=== PATIENT | female | born 1995 | race Caucasian/White ===

== ENCOUNTER → 2021-08-02 | Outpatient (CLI) ==
[~2021-08-02] MED LIST: AC325T PO; ACET-1697 PO; ACET-2267 PO; ACHD5005 PO; ALPR.25T PO; AMOX-358 PO; AMX500CIP PO; AZTH250C PO; CEPH-507 PO; CEPH250C PO; CEPH500C; CEPH500C PO; CYCL10TA25 PO; CYCL5TAB PO; DIPH25CA79 PO; DIPH25TA27 PO; DIPH25TA82 PO; DOCU-239 PO; DOCU100C37 PO; DOXY100T2 PO; ENOX100D4 SC; FLUC200T PO; HYDR-4226 PO; HYDR1TAB PO; IBUP-15 PO; IBUP-1773 PO; IBUP-1780 PO; IBUP-844 PO; KETO10TA PO; MEDR10TA9; METR-145 PO; METR500T PO; NAPR-1071 PO; NAPR550T PO; NEOM10DR6 EACH EAR; NITR-65 PO; ONDA4TAB8 SL; OXYC-556 PO; OXYC1TAB12 PO; PNV91TAB3 PO; PREN1TAB79 PO; PROM25TA14 PO; SERT-413; UNISOM25 M1 PO; VITIAMS; pnv
== END ==
LOC: LABNPT 15:54
PROVIDERS: ATTEND Nurse Practitioner Women's Health
DX: Z53.9 Procedure and treatment not carried out, unspecified reason (principal)

== ENCOUNTER → 2021-08-02 | Outpatient (CLI) | LOC: LABNPT 16:17 → MERGE 16:17 | PROVIDERS: ATTEND Nurse Practitioner Women's Health | DX: N89.8 Other specified noninflammatory disorders of vagina (principal) | CPT/HCPCS: 87070; 87077; 87088; 87205; 87491; 87591 ==

== ENCOUNTER → 2022-06-14 | Outpatient (CLI) | payer MEDICAID ==
[2022-06-14 15:15] LABS: BASOPHILS % (AUTO) 1 % (0-10); EOSINOPHILS # (AUTO) 0.1 10^3/uL (0.0-0.3); EOSINOPHILS % (AUTO) 1 % (0-10); HEMATOCRIT 40 % (35-52); HEMOGLOBIN 13.4 g/dL (11.5-16.0); LYMPHOCYTES # (AUTO) 2.2 X 10^3 (1.0-4.0); LYMPHOCYTES % (AUTO) 34 % (12-44); MEAN CORPUSCULAR HEMOGLOBIN 32 pg (25-34); MEAN CORPUSCULAR HGB CONC 34 g/dL (32-36); MEAN CORPUSCULAR VOLUME 94 fL (80-99); MEAN PLATELET VOLUME 11.1 fL (9.0-12.2); MONOCYTES # (AUTO) 0.4 X 10^3 (0.0-1.0); MONOCYTES % (AUTO) 6 % (0-12); NEUTROPHILS # (AUTO) 3.9 X 10^3 (1.8-7.8); NEUTROPHILS % (AUTO) 59 % (42-75); PLATELET COUNT 254 10^3/uL (130-400); WHITE BLOOD COUNT 6.6 10^3/uL (4.3-11.0)
[2022-06-14 20:49] LABS: HEPATITIS C ANTIBODY C Non-Reactive (Non-Reactive)
== END ==
LOC: LAB 14:29
PROVIDERS: ATTEND Nurse Practitioner Women's Health
DX: Z36.89 Encounter for other specified antenatal screening (principal)
CPT/HCPCS: 36415; 80055; 84702; 86803; 87389

== ENCOUNTER 2022-06-23 21:55 | Emergency (ER) | payer MEDICAID ==
[~2022-06-23] VITALS: Ht 163 cm; Wt 62.0 kg
[2022-06-23] MEDS ORDERED: METOCLOPRAMIDE INJ 10 MG/2 ML (REGLAN) IVP STA (22:16)
--- NOTE | 2022-06-23 22:17 | ED General ---
General Stated Complaint: N/V, WEAKNESS Source of Information: Patient History of Present Illness Date Seen by Provider: Jun 23, 2022 Time Seen by Provider: 22:10 Initial Comments PT ARRIVES VIA POV FROM HOME PT STATES SHE IS 7 WEEKS , LMP 05/05/22 PT HAS BEEN HAVING NAUSEA AND VOMITING X 2 WEEKS. SHE VOMITED 2 DAYS AGO. NO DIARRHEA NO ABDOMINAL PAIN OR CRAMPING NO VAGINAL BLEEDING OR DISCHARGE NO URINARY SYMPTOMS, AND VOIDING A NORMAL AMOUNT PT STATES SHE IS EATING AND DRINKING, AND KEEPS IT DOWN, IS JUST VERY NAUSEATED. C/O FEELING WEAK AND DIZZY SHE HAD LAB DONE AT DR. VALDZE'S LAST WEEK SHE HAS HER FIRST OB APPOINTMENT WITH DR. VALDEZ 07/15/22 SHE HAS BEEN TAKING TUMS WITHOUT RELIEF SHE IS TAKING VITAMINS. PT IS AB 3. LAST DELIVERY WAS 03/29/21 VIA REPEAT . PT IS NOT COVID OR FLU VACCINATED PCP: [facility] PETROL TANKER DRIVER: DR. VALDEZ Allergies and Home Medications Allergies Coded Allergies: ceftriaxone (Verified Allergy, Mild, RASH, 08/03/21) tramadol (Unverified Allergy, Unknown, 08/03/21) Uncoded Allergies: IV contrast (Allergy, Unknown, 08/03/21) Patient Home Medication List Home Medication List Reviewed: Yes Diphenhydramine HCl (Benadryl) 25 Mg Capsule, 50 MG PO HS, (Reported) Entered as Reported by: SALLY FRIEDMAN on 02/18/21 1248 Docusate Sodium (Docusate Sodium) 100 Mg Capsule, 100 MG PO BID PRN for CONSTIPATION-1ST LINE Prescribed by: ROBERT VALDEZ on 03/29/212106 Doxylamine/Pyridoxine HCl (Guerita Camarena 10-10 mg Tablet) 10 Mg-10 Mg Tablet., 2 EACH PO HS Prescribed by: JAKE JEAN on 06/23/22 2331 Hydrocodone Bit/Acetaminophen (HYDROcodone/APAP 5 MG/325 MG TAB) 1 Tab Tab, 1-2 EA PO Q6HR PRN for PAIN-MODERATE (5-7) Prescribed by: ROBERT VALDEZ on 03/29/212108 Ibuprofen (Ibu) 600 Mg Tablet, 600 MG PO Q6HR Prescribed by: ROBERT VALDEZ on 03/29/212106 Metoclopramide HCl (Reglan) 10 Mg Tablet, 10 MG PO Q6H Prescribed by: JAKE JEAN on 06/23/22 2331 Vit W-Ca,Fe,FA(<1 mg) ( Vitamins) 1 Each Tablet, 1 EACH PO DAILY, (Reported) Entered as Reported by: MILES SPANGLER on 11/18/20 2339 Review of Systems Review of Systems Constitutional: see HPI, dizziness, malaise, weakness EENTM: no symptoms reported Respiratory: no symptoms reported Cardiovascular: no symptoms reported Gastrointestinal: see HPI; No abdominal pain, No constipation, No diarrhea; nausea, vomiting Genitourinary: no symptoms reported : Yes LMP: May 05, 2022 Musculoskeletal: no symptoms reported Skin: no symptoms reported Psychiatric/Neurological: No Symptoms Reported Hematologic/Lymphatic: No Symptoms Reported Immunological/Allergic: no symptoms reported Past Emklnek-Biqhko-Afpnnb Hx Patient Social History Tobacco Use?: No Substance use?: No Alcohol Use?: No Immunizations Up To Date Tetanus Booster (TDap): Unknown PED Vaccines UTD: Yes Seasonal Allergies Seasonal Allergies: Yes Past Medical History Surgery/Hospitalization HX: WISDOM TEETH REMOVED X 3 D&C X 2 BIRTHMARK/SKIN LESION REMOVED FROM RIGHT LOWER LEG Surgeries: Yes (surgery on RIGHT LOWERleg for lesion removal; DENTAL; D&C X2; X 3) Section Respiratory: No Cardiac: Yes (hx DVT after first ) Deep Vein Thrombosis, Heart Murmur Neurological: No : Yes Last Menstrual Period: May 05, 2022 Hx : 8 Hx Para: 4 Hx Total # of Abortions (Sp): 3 Reproductive Disorders: Yes Female Reproductive Disorders: Menstrual Problems, Ovarian Cyst HIV/AIDS: No Genitourinary: Yes (PELVIC CONGESTION SYNDROME) Gastrointestinal: No Musculoskeletal: No Endocrine: No HEENT: No Cancer: No Psychosocial: Yes (OVERDOSED 2018. SUICIDAL IDEATIONS. ) Anxiety, Suicide Attempts, Depression Integumentary: No Blood Disorders: Yes (DVT, anemia after last delivery) Adverse Reaction/Blood Tranf: No Family Medical History Patient reports no known family medical history. No Pertinent Family Hx Physical Exam Vital Signs Vital Signs - First Documented 06/23/22 22:09 Temp 36.6 Pulse 94 Resp 16 B/P (MAP) 127/70 (89) Pulse Ox 100 O2 Delivery Room Air Capillary Refill : Height, Weight, BMI Height: 5'4.00" Weight: 145lbs. 0.0oz. 65.062231fq; 27.76 BMI Method:Stated General Appearance: No Apparent Distress, WD/WN, Thin, Other HEENT: Normal ENT Inspection, Other (ORAL MUCOSA MOIST) Neck: Normal Inspection Respiratory: Normal Breath Sounds, No Accessory Muscle Use, No Respiratory Distress Cardiovascular: Regular Rate, Rhythm, No Murmur Gastrointestinal: Normal Bowel Sounds, No Organomegaly, Non Tender, Soft Back: Normal Inspection, No CVA Tenderness Extremity: Normal Capillary Refill, Normal Inspection, No Pedal Edema Neurologic/Psychiatric: Alert, Oriented x3, No Motor/Sensory Deficits, Normal Mood/Affect, charge loader II-XII Norm as Tested Skin: Normal Color, Warm/Dry; No Rash Progress/Results/Core Measures Suspected Sepsis SIRS Temperature: Pulse: Respiratory Rate: Laboratory Tests 06/23/22 22:05: White Blood Count 8.8 Blood Pressure / Mean: Laboratory Tests 06/23/22 22:05: Platelet Count 220 06/23/22 22:15: Creatinine 0.67, Total Bilirubin 0.3 Results/Orders Lab Results Laboratory Tests Test 06/23/22 22:05 06/23/22 22:15 Range/Units White Blood Count 8.8 4.3-11.0 10^3/uL Red Blood Count 3.70 L 3.80-5.11 10^6/uL Hemoglobin 11.8 11.5-16.0 g/dL Hematocrit 34 L 35-52 % Mean Corpuscular Volume 93 80-99 fL Mean Corpuscular Hemoglobin 32 25-34 pg Mean Corpuscular Hemoglobin Concent 34 32-36 g/dL Red Cell Distribution Width 12.8 10.0-14.5 % Platelet Count 220 130-400 10^3/uL Mean Platelet Volume 10.9 9.0-12.2 fL Immature Granulocyte % (Auto) 0 % Neutrophils (%) (Auto) 59 42-75 % Lymphocytes (%) (Auto) 33 12-44 % Monocytes (%) (Auto) 6 0-12 % Eosinophils (%) (Auto) 2 0-10 % Basophils (%) (Auto) 1 0-10 % Neutrophils # (Auto) 5.2 1.8-7.8 10^3/uL Lymphocytes # (Auto) 2.9 1.0-4.0 10^3/uL Monocytes # (Auto) 0.6 0.0-1.0 10^3/uL Eosinophils # (Auto) 0.1 0.0-0.3 10^3/uL Basophils # (Auto) 0.1 0.0-0.1 10^3/uL Immature Granulocyte # (Auto) 0.0 0.0-0.1 10^3/uL Urine Color YELLOW Urine Clarity CLEAR Urine pH 6.0 5-9 Urine Specific [place] 1.020 1.016-1.022 Urine Protein NEGATIVE NEGATIVE Urine Glucose (UA) NEGATIVE NEGATIVE Urine Ketones NEGATIVE NEGATIVE Urine Nitrite NEGATIVE NEGATIVE Urine Bilirubin NEGATIVE NEGATIVE Urine Urobilinogen 0.2 < = 1.0 MG/DL Urine Leukocyte Esterase NEGATIVE NEGATIVE Urine RBC (Auto) NEGATIVE NEGATIVE Urine RBC NONE /HPF Urine WBC NONE /HPF Urine Squamous Epithelial Cells 0-2 /HPF Urine Crystals NONE /LPF Urine Bacteria NEGATIVE /HPF Urine Casts NONE /LPF Urine Mucus NEGATIVE /LPF Urine Culture Indicated NO Urine Opiates Screen NEGATIVE NEGATIVE Urine Oxycodone Screen NEGATIVE NEGATIVE Urine Methadone Screen NEGATIVE NEGATIVE Urine Propoxyphene Screen NEGATIVE NEGATIVE Urine Barbiturates Screen NEGATIVE NEGATIVE Ur Tricyclic Antidepressants Screen NEGATIVE NEGATIVE Urine Phencyclidine Screen NEGATIVE NEGATIVE Urine Amphetamines Screen NEGATIVE NEGATIVE Urine Methamphetamines Screen NEGATIVE NEGATIVE Urine Benzodiazepines Screen NEGATIVE NEGATIVE Urine Cocaine Screen NEGATIVE NEGATIVE Urine Cannabinoids Screen NEGATIVE NEGATIVE Sodium Level 140 135-145 MMOL/L Potassium Level 3.4 L 3.6-5.0 MMOL/L Chloride Level 108 H 98-107 MMOL/L Carbon Dioxide Level 21 21-32 MMOL/L Anion Gap 11 5-14 MMOL/L Blood Urea Nitrogen 8 7-18 MG/DL Creatinine 0.67 0.60-1.30 MG/DL Estimat Glomerular Filtration Rate 124 BUN/Creatinine Ratio 12 Glucose Level 91 70-105 MG/DL Calcium Level 8.9 8.5-10.1 MG/DL Corrected Calcium 9.0 8.5-10.1 MG/DL Magnesium Level 1.8 1.6-2.4 MG/DL Total Bilirubin 0.3 0.1-1.0 MG/DL Aspartate Amino Transf (AST/SGOT) 14 5-34 U/L Alanine Aminotransferase (ALT/SGPT) 14 0-55 U/L Alkaline Phosphatase 36 L 40-136 U/L Total Protein 6.1 L 6.4-8.2 GM/DL Albumin 3.9 3.2-4.5 GM/DL Amylase Level 51 25-125 U/L Lipase 27 8-78 U/L Human Chorionic Gonadotropin, Quant [id number] H <5 MIU/ML My Orders Orders - JAKE JEAN DO Ed Iv/Invasive Line Start (06/23/22 22:16) Amylase (06/23/22 22:16) Cbc With Automated Diff (06/23/22 22:16) Comprehensive Metabolic Panel (06/23/22 22:16) Drug Screen Stat (Urine) (06/23/22 22:16) Hcg,Quantitative (06/23/22 22:16) Lipase (06/23/22 22:16) Magnesium (06/23/22 22:16) Ua Culture If Indicated (06/23/22 22:16) Ed Iv/Invasive Line Start (06/23/22 22:16) Lactated Ringers (Lr 1000 Ml Iv Solution (06/23/22 22:30) Metoclopramide Injection (Reglan Injecti (06/23/22 22:16) Medications Given in ED Current Medications Medications Dose Ordered Sig/Dionna Route Start Time Stop Time Status Last Admin Dose Admin Lactated Ringer's 1,000 ml @ 0 mls/hr Q0M ONCE IV 06/23/22 22:30 06/23/22 22:31 DC 06/23/22 22:26 0 MLS/HR Vital Signs/I&O 06/23/22 06/23/22 22:09 23:33 Temp 36.6 36.5 Pulse 94 81 Resp 16 16 B/P (MAP) 127/70 (89) 122/61 Pulse Ox 100 99 O2 Delivery Room Air Room Air Capillary Refill : Progress Note : Progress Note GIVEN: -IV FLUIDS -REGLAN SIGNIFICANT IMPROVEMENT IN SYMPTOMS WITH THE ABOVE. PT HAS NOT HAD ANY VOMITING DURING ER STAY VITALS ARE STABLE NO DETERIORATION IN PT'S CONDITION DURING ER STAY DISCUSSED TEST RESULTS, ANTICIPATED COURSE, SYMPTOMATIC TREATMENT, DIET, MEDICATIONS, NEED FOR FOLLOW UP AND RETURN PRECAUTIONS REVIEWED PRIOR RECORDS, INCLUDING ER VISITS, ADMITS/H&P'S/DISCHARGE SUMMARIES AND TESTS/PROCEDURES PT'S BLOOD TYPE IS A+ Departure Impression Primary Impression: Nausea and vomiting during prior to 22 weeks gestation Disposition: 01 HOME, SELF-CARE Condition: Stable Departure-Patient Inst. Decision time for Depature: 23:30 Referrals: ROBERT VALDEZ DO Patient Instructions: Morning Sickness ED Add. Discharge Instructions: CLEAR LIQUIDS, SIPS AT A TIME--WATER, BROTH, JELLO, GATORADE BRATS DIET--BANANAS, RICE, APPLESAUCE, TOAST, SALTINES FOLLOW UP WITH DR. VALDEZ SCHEDULED OR SOONER IF NO IMPROVEMENT IN SYMPTOMS Scripts Metoclopramide HCl (Reglan) 10 Mg Tablet 10 MG PO Q6H for Nausea/Vomiting, #10 TAB Prov: JAKE JEAN DO 06/23/22 Doxylamine/Pyridoxine HCl (Guerita Camarena 10-10 mg Tablet) 10 Mg-10 Mg Tablet.dr 2 EACH PO HS, #60 TAB Prov: JKAE JEAN DO 06/23/22 JAKE JEAN DO Jun 23, 2022 22:17
[2022-06-23 22:28] LABS: BASOPHILS # (AUTO) 0.1 10^3/uL (0.0-0.1); BASOPHILS % (AUTO) 1 % (0-10); EOSINOPHILS # (AUTO) 0.1 10^3/uL (0.0-0.3); EOSINOPHILS % (AUTO) 2 % (0-10); HEMATOCRIT 34 % (35-52); HEMOGLOBIN 11.8 g/dL (11.5-16.0); LYMPHOCYTES # (AUTO) 2.9 10^3/uL (1.0-4.0); LYMPHOCYTES % (AUTO) 33 % (12-44); MEAN CORPUSCULAR HEMOGLOBIN 32 pg (25-34); MEAN CORPUSCULAR HGB CONC 34 g/dL (32-36); MEAN CORPUSCULAR VOLUME 93 fL (80-99); MEAN PLATELET VOLUME 10.9 fL (9.0-12.2); MONOCYTES # (AUTO) 0.6 10^3/uL (0.0-1.0); MONOCYTES % (AUTO) 6 % (0-12); NEUTROPHILS # (AUTO) 5.2 10^3/uL (1.8-7.8); NEUTROPHILS % (AUTO) 59 % (42-75); PLATELET COUNT 220 10^3/uL (130-400); WHITE BLOOD COUNT 8.8 10^3/uL (4.3-11.0)
[2022-06-23 22:29] LABS: BILIRUBIN,URINE NEGATIVE (NEGATIVE); CLARITY,URINE CLEAR; COLOR,URINE YELLOW; GLUCOSE, URINE (UA) NEGATIVE (NEGATIVE); KETONES,URINE NEGATIVE (NEGATIVE); LEUKOCYTE ESTERASE ,URINE NEGATIVE (NEGATIVE); NITRITE,URINE NEGATIVE (NEGATIVE); PROTEIN,URINE NEGATIVE (NEGATIVE)
[2022-06-23] MEDS ORDERED: LACTATED RINGERS 1,000 ML IV ONE (22:30)
[2022-06-23 22:35] LABS: BACTERIA,URINE NEGATIVE /HPF; SQUAMOUS EPITHELIAL CELL,UR 0-2 /HPF
[2022-06-23 22:43] LABS: AMPHETAMINE SCREEN, URINE NEGATIVE (NEGATIVE); BARBITURATE SCREEN URINE NEGATIVE (NEGATIVE); BENZODIAZEPINES SCREEN URINE NEGATIVE (NEGATIVE); CANNABINOID SCREEN, URINE NEGATIVE (NEGATIVE); COCAINE SCREEN URINE NEGATIVE (NEGATIVE); METHADONE STAT NEGATIVE (NEGATIVE); OPIATE SCREEN URINE NEGATIVE (NEGATIVE); OXYCODONE STAT NEGATIVE (NEGATIVE); PROPOXYPHENE STAT NEGATIVE (NEGATIVE); TRICYCLIC ANTIDEPRESSANTS SCRE NEGATIVE (NEGATIVE)
[2022-06-23 22:52] LABS: ALBUMIN 3.9 GM/DL (3.2-4.5); BILIRUBIN,TOTAL 0.3 MG/DL (0.1-1.0); CALCIUM 8.9 MG/DL (8.5-10.1); CREATININE SERUM 0.67 MG/DL (0.60-1.30); MAGNESIUM 1.8 MG/DL (1.6-2.4); POTASSIUM 3.4 MMOL/L (3.6-5.0); TOTAL PROTEIN 6.1 GM/DL (6.4-8.2)
[2022-06-23] MEDS ORDERED: DOXY1TAB3 PO (23:31)
[2022-06-23] MEDS ORDERED: METO-310 PO (23:31)
[2022-06-23 23:33] VITALS: BP 122/61
== END 2022-06-23 23:37 | disposition home or self-care (01) ==
LOC: EDUNIT# 21:55 → ER 21:57
DX: O21.9 Vomiting of pregnancy, unspecified (principal); O26.891 Other specified pregnancy related conditions, first trimester; R42 Dizziness and giddiness; R53.1 Weakness; Z28.310 Unvaccinated for COVID-19; Z3A.01 Less than 8 weeks gestation of pregnancy
CPT/HCPCS: 36415; 80053; 80306; 81000; 82150; 83690; 83735; 84702; 85025

== ENCOUNTER → 2022-09-16 | Outpatient (CLI) | payer MEDICAID ==
[~2022-09-16] MED LIST changes: +DOXY1TAB3 PO; +METO-310 PO
--- NOTE | 2022-09-16 15:40 | Diagnostic Imaging Report ---
INDICATION: patient, survey. TECHNIQUE: Multiple Real-time grayscale images were obtained over the gravid uterus. COMPARISON: None during this . FINDINGS: A single live intrauterine fetus is seen measuring 19 weeks 1 day by composite measurements. The fetus is in cephalic presentation. The amniotic fluid index is 11.2 cm. The placenta is posterior and marginal with the tip near the internal cervical os. The cervical length is 8.4 cm with some slight funneling in the superior portion. The survey shows normal-appearing kidneys and bladder. A normal-appearing stomach is seen. The intracranial ventricles appear normal. The four-chamber heart view appears normal. The three-vessel cord and cord insertion appear normal. Views of the spine were unremarkable. Biometrical measurements are as follows: Biparietal 4.17 cm, age 18 weeks 5 days. Head circumference 16.20 cm, age 19 weeks 0 days. Abdominal circumference 14.08 cm, age 19 weeks 4 days. Femur length 2.86 cm, age 18 weeks 6 days. Sonographic estimate age: 19 weeks 1 days. Sonographic estimated date of delivery: 02/09/2023. Estimated Weight: 274 gm (+/- 40 gm). LMP percentile: 16%. heart rate: 138 beats per minute. number: 1 of 1. IMPRESSION: Single live intrauterine fetus measuring 19 weeks 1 day in size. The placenta is marginal, recommend followup studies to determine if this resolves in later . anatomical survey shows no detectable abnormality. Dictated by: Dictated on workstation # [id number]
== END ==
LOC: RAD 09:16
PROVIDERS: ATTEND Nurse Practitioner Women's Health
DX: Z34.92 Encounter for supervision of normal pregnancy, unspecified, second trimester (principal); Z3A.19 19 weeks gestation of pregnancy
CPT/HCPCS: 76805

== ENCOUNTER 2022-10-02 18:47 | Outpatient (CLI) | payer MEDICAID ==
[~2022-10-02] VITALS: Ht 162.6 cm; Wt 67.8 kg
[2022-10-02 19:15] VITALS: BP 119/58
[2022-10-02 19:28] LABS: BILIRUBIN,URINE NEGATIVE (NEGATIVE); CLARITY,URINE SL CLOUDY; COLOR,URINE YELLOW; GLUCOSE, URINE (UA) NEGATIVE (NEGATIVE); KETONES,URINE NEGATIVE (NEGATIVE); LEUKOCYTE ESTERASE ,URINE NEGATIVE (NEGATIVE); NITRITE,URINE NEGATIVE (NEGATIVE); PH,URINE 6.5 (5-9); PROTEIN,URINE NEGATIVE (NEGATIVE)
[2022-10-02 19:38] LABS: BACTERIA,URINE NEGATIVE /HPF
[2022-10-02 19:39] LABS: AMORPHOUS SEDIMENT,UR LARGE AMOR URATES /LPF; GRANULAR CASTS,URINE RARE /LPF
[2022-10-02] MEDS ORDERED: DOCO200C4 PO (20:13)
[2022-10-02] MEDS ORDERED: ONDANSETRON 4 MG (ZOFRAN) ORAL DISSOLVE TAB ONE (20:22)
[2022-10-02] MEDS ORDERED: ONDANSETRON 4 MG (ZOFRAN) ORAL DISSOLVE TAB PO ONE (20:30)
--- NOTE | 2022-10-03 08:08 | Physician Query-Final Dx ---
SHAMAR,10/03/22 0808: Clinic Account Progress/Dx Physician Query: Please give diagnosis Please include # weeks gestation Date of Service Oct 02, 2022 at 18:47 ROBERT VALDEZ DO 10/03/22 1012: Clinic Account Progress/Dx DIAGNOSIS: Diagnosis 22 week IUP Nausea and dehydration SHAMAR,MarOct 03, 2022 08:08 ROBERT VALDEZ DO Oct 03, 2022 10:12
== END 2022-10-02 20:00 ==
LOC: WSo 18:47 → LDRP 18:47 → WSo 20:00
PROVIDERS: ATTEND Obstetrics & Gynecology
DX: O26.892 Other specified pregnancy related conditions, second trimester (principal); E86.0 Dehydration; R11.0 Nausea; Z3A.22 22 weeks gestation of pregnancy
CPT/HCPCS: 81000; 99213

== ENCOUNTER 2022-10-14 22:24 | Outpatient (CLI) | payer MEDICAID ==
[~2022-10-14] VITALS: Ht 162.6 cm; Wt 69.9 kg
[~2022-10-14 22:24] MED LIST changes: +DOCO200C4 PO
[2022-10-14 22:50] VITALS: BP 130/60
[2022-10-14 23:04] LABS: BILIRUBIN,URINE NEGATIVE (NEGATIVE); CLARITY,URINE CLEAR; COLOR,URINE YELLOW; GLUCOSE, URINE (UA) NEGATIVE (NEGATIVE); KETONES,URINE NEGATIVE (NEGATIVE); LEUKOCYTE ESTERASE ,URINE NEGATIVE (NEGATIVE); NITRITE,URINE NEGATIVE (NEGATIVE); PROTEIN,URINE NEGATIVE (NEGATIVE)
[2022-10-14 23:12] LABS: BACTERIA,URINE NEGATIVE /HPF; SQUAMOUS EPITHELIAL CELL,UR RARE /HPF
[2022-10-14 23:42] LABS: BASOPHILS % (AUTO) 0 % (0-10); EOSINOPHILS # (AUTO) 0.1 10^3/uL (0.0-0.3); EOSINOPHILS % (AUTO) 1 % (0-10); HEMATOCRIT 33 % (35-52); HEMOGLOBIN 11.2 g/dL (11.5-16.0); LYMPHOCYTES # (AUTO) 2.1 10^3/uL (1.0-4.0); LYMPHOCYTES % (AUTO) 25 % (12-44); MEAN CORPUSCULAR HEMOGLOBIN 34 pg (25-34); MEAN CORPUSCULAR HGB CONC 34 g/dL (32-36); MEAN CORPUSCULAR VOLUME 100 fL (80-99); MEAN PLATELET VOLUME 10.8 fL (9.0-12.2); MONOCYTES # (AUTO) 0.5 10^3/uL (0.0-1.0); MONOCYTES % (AUTO) 6 % (0-12); NEUTROPHILS # (AUTO) 5.7 10^3/uL (1.8-7.8); NEUTROPHILS % (AUTO) 67 % (42-75); PLATELET COUNT 188 10^3/uL (130-400); WHITE BLOOD COUNT 8.4 10^3/uL (4.3-11.0)
[2022-10-14] MEDS ORDERED: ACETAMINOPHEN 500 MG TAB (TYLENOL) PO ONE (23:45)
[2022-10-14 23:54] LABS: ALBUMIN 3.2 GM/DL (3.2-4.5); POTASSIUM 3.6 MMOL/L (3.6-5.0)
[2022-10-14 23:55] LABS: CALCIUM 8.2 MG/DL (8.5-10.1)
[2022-10-14 23:56] LABS: TOTAL PROTEIN 5.6 GM/DL (6.4-8.2)
[2022-10-14 23:58] LABS: BILIRUBIN,TOTAL 0.2 MG/DL (0.1-1.0)
[2022-10-15 00:01] LABS: CREATININE SERUM 0.6 MG/DL (0.60-1.30)
[2022-10-15 00:02] LABS: BILIRUBIN,DIRECT 0.1 MG/DL (0.0-0.3); BILIRUBIN,INDIRECT 0.1 MG/DL
[2022-10-15 00:59] VITALS: BP 119/59
[2022-10-15 01:00] VITALS: BP 119/59
--- NOTE | 2022-10-15 08:22 | Physician Query-Final Dx ---
SHAMAR,10/15/22 0822: Clinic Account Progress/Dx Physician Query: Please give diagnosis Please include # weeks gestation Date of Service Oct 14, 2022 at 22:24 ROBERT VALDEZ DO 10/15/22 1628: Clinic Account Progress/Dx DIAGNOSIS: Diagnosis 22 week IUP Acute gastroenteritis SHAMAR,MarOct 15, 2022 08:22 ROBERT VALDEZ DO Oct 15, 2022 16:28
== END 2022-10-15 01:00 | disposition home or self-care (01) ==
LOC: LDRP 22:24 → WSo 22:24
PROVIDERS: ATTEND Obstetrics & Gynecology
DX: O99.612 Diseases of the digestive system complicating pregnancy, second trimester (principal); Z3A.22 22 weeks gestation of pregnancy
CPT/HCPCS: 36415; 80053; 81000; 82150; 82247; 82248; 83690; 85025; 99213

== ENCOUNTER 2023-01-07 10:48 | Outpatient (CLI) | payer MEDICAID ==
[2023-01-07] MEDS ORDERED: LORA5TAB9 PO (11:22)
[2023-01-07 11:25] VITALS: BP 116/60
[2023-01-07 11:51] LABS: BILIRUBIN,URINE NEGATIVE (NEGATIVE); CLARITY,URINE CLEAR; COLOR,URINE YELLOW; GLUCOSE, URINE (UA) NEGATIVE (NEGATIVE); KETONES,URINE 1+ (NEGATIVE); LEUKOCYTE ESTERASE ,URINE NEGATIVE (NEGATIVE); NITRITE,URINE NEGATIVE (NEGATIVE); PH,URINE 6.5 (5-9); PROTEIN,URINE NEGATIVE (NEGATIVE)
[2023-01-07 11:52] LABS: BACTERIA,URINE FEW /HPF
--- NOTE | 2023-01-07 12:06 | OB Triage Report ---
Standard Progress Note Progress Notes/Assess & Plan Date Seen by a Provider: Jan 07, 2023 Time Seen by a Provider: 12:00 Expected Date of Delivery: Feb 05, 2023 Gestational Age in Weeks: 35 Gestational Age in Days: 6 LMP/SPENSER Comment: This 35w6d 27yo presents to L&D with c/o cramping and diarrhea that started yesteday She denies LOF, VB N/V or CTXS FHT 140 Reactive TOCOs irritability Progress/Assessment & Plan IUP @ 35w6d False labor Dehydration Diarrhea DC to home PO fluids Labor precautions Keep appt. CAT QUIROGA DO Jan 07, 2023 12:06
== END 2023-01-07 12:15 | disposition home or self-care (01) ==
LOC: LDRP 10:48 → WSo 10:48
PROVIDERS: ATTEND Obstetrics & Gynecology
DX: O26.893 Other specified pregnancy related conditions, third trimester (principal); R25.2 Cramp and spasm; R19.7 Diarrhea, unspecified; Z3A.35 35 weeks gestation of pregnancy
CPT/HCPCS: 81000; G0463; 99213

== ENCOUNTER 2023-01-08 08:07 | Outpatient (CLI) | payer MEDICAID ==
[~2023-01-08] VITALS: Ht 162.6 cm; Wt 74.8 kg
[~2023-01-08 08:07] MED LIST changes: +LORA5TAB9 PO
[2023-01-08 08:47] LABS: CLARITY,URINE CLEAR; COLOR,URINE YELLOW; GLUCOSE, URINE (UA) NEGATIVE (NEGATIVE); PROTEIN,URINE NEGATIVE (NEGATIVE)
[2023-01-08 08:48] LABS: BACTERIA,URINE TRACE /HPF; BILIRUBIN,URINE NEGATIVE (NEGATIVE); KETONES,URINE 1+ (NEGATIVE); LEUKOCYTE ESTERASE ,URINE NEGATIVE (NEGATIVE); NITRITE,URINE NEGATIVE (NEGATIVE); RBC,URINE RARE /HPF; WBC,URINE RARE /HPF
[2023-01-08 09:00] VITALS: BP 132/70
[2023-01-08] MEDS ORDERED: LACTATED RINGERS 1,000 ML 1,000 ML IV SCH (09:00)
[2023-01-08] MEDS ORDERED: ACETAMINOPHEN 500 MG TABLET PO ONE (09:30)
[2023-01-08 09:56] LABS: BASOPHILS % (AUTO) 0 % (0-10); EOSINOPHILS % (AUTO) 0 % (0-10); HEMATOCRIT 35 % (35-52); HEMOGLOBIN 11.9 g/dL (11.5-16.0); LYMPHOCYTES # (AUTO) 0.9 10^3/uL (1.0-4.0); LYMPHOCYTES % (AUTO) 9 % (12-44); MEAN CORPUSCULAR HEMOGLOBIN 33 pg (25-34); MEAN CORPUSCULAR HGB CONC 34 g/dL (32-36); MEAN CORPUSCULAR VOLUME 98 fL (80-99); MEAN PLATELET VOLUME 11.5 fL (9.0-12.2); MONOCYTES # (AUTO) 0.6 10^3/uL (0.0-1.0); MONOCYTES % (AUTO) 6 % (0-12); NEUTROPHILS # (AUTO) 8.2 10^3/uL (1.8-7.8); NEUTROPHILS % (AUTO) 84 % (42-75); PLATELET COUNT 154 10^3/uL (130-400); WHITE BLOOD COUNT 9.8 10^3/uL (4.3-11.0)
[2023-01-08 10:07] LABS: ALBUMIN 3.1 GM/DL (3.2-4.5); POTASSIUM 3.4 MMOL/L (3.6-5.0)
[2023-01-08 10:08] LABS: CALCIUM 8.2 MG/DL (8.5-10.1)
[2023-01-08 10:09] LABS: TOTAL PROTEIN 5.8 GM/DL (6.4-8.2)
[2023-01-08 10:11] LABS: BILIRUBIN,TOTAL 0.6 MG/DL (0.1-1.0)
[2023-01-08 10:13] LABS: CREATININE SERUM 0.58 MG/DL (0.60-1.30)
--- NOTE | 2023-01-08 10:42 | OB Triage Report ---
Standard Progress Note Progress Notes/Assess & Plan Date Seen by a Provider: Jan 08, 2023 Time Seen by a Provider: 10:37 Expected Date of Delivery: Feb 11, 2023 Gestational Age in Weeks: 35 Gestational Age in Days: 1 LMP/SPENSER Comment: This 27yo presents at 35w1d with c/o increased diarrhea and cramping. FHT 135 Reactive CVX closed per RN TOCOs irregular with irritability Labs reviewed Progress/Assessment & Plan IUP @ 35w1d Diarrhea Cramping IV hydration Lomotil Labs WNL DC to home Keep next appt Labor precautions. CAT QUIROGA DO Jan 08, 2023 10:42
[2023-01-08] MEDS ORDERED: DIPHENOXYLATE/ATROPINE 2.5MG/0.025MG TABLET PO PRN (10:45)
== END 2023-01-08 12:15 | disposition home or self-care (01) ==
LOC: WSo 08:07 → LDRP 08:07 → WSo 12:15
PROVIDERS: ATTEND Obstetrics & Gynecology
DX: O26.899 Other specified pregnancy related conditions, unspecified trimester (principal); R19.7 Diarrhea, unspecified; R10.9 Unspecified abdominal pain; Z3A.00 Weeks of gestation of pregnancy not specified
CPT/HCPCS: 80053; 81000; 85025; 96360; G0463; 36415; 99213

== ENCOUNTER → 2023-01-09 | Outpatient (CLI) | payer MEDICAID ==
[~2023-01-09] MED LIST changes: +LOPE-134 PO
== END ==
LOC: LAB 08:50
PROVIDERS: ATTEND Obstetrics & Gynecology
DX: R19.7 Diarrhea, unspecified (principal)
CPT/HCPCS: 87015; 87045; 87046; 87077; 87177; 87324; 87449; 87899; 89055

== ENCOUNTER 2023-01-12 03:38 | Outpatient (CLI) | payer MEDICAID ==
[~2023-01-12] VITALS: Ht 162.6 cm; Wt 76.2 kg
[~2023-01-12 03:38] MED LIST changes: -LOPE-134 PO
[2023-01-12 03:50] VITALS: BP 124/74
[2023-01-12 04:09] LABS: CLARITY,URINE CLEAR; COLOR,URINE YELLOW; GLUCOSE, URINE (UA) NEGATIVE (NEGATIVE); KETONES,URINE 2+ (NEGATIVE); PH,URINE 6.5 (5-9); PROTEIN,URINE NEGATIVE (NEGATIVE)
[2023-01-12 04:10] LABS: BACTERIA,URINE TRACE /HPF; BILIRUBIN,URINE 1+ (NEGATIVE); LEUKOCYTE ESTERASE ,URINE NEGATIVE (NEGATIVE); NITRITE,URINE NEGATIVE (NEGATIVE); SQUAMOUS EPITHELIAL CELL,UR 0-2 /HPF
[2023-01-12] MEDS ORDERED: ACET-2267 PO (04:14)
[2023-01-12] MEDS ORDERED: LOPE-134 PO (04:14)
[2023-01-12] MEDS ORDERED: LACTATED RINGERS 1,000 ML 1,000 ML IV SCH (05:00)
[2023-01-12 05:40] LABS: ALBUMIN 2.7 GM/DL (3.2-4.5)
[2023-01-12 05:41] LABS: POTASSIUM 3.2 MMOL/L (3.6-5.0)
[2023-01-12 05:42] LABS: CALCIUM 7.9 MG/DL (8.5-10.1)
[2023-01-12 05:43] LABS: TOTAL PROTEIN 5.4 GM/DL (6.4-8.2)
[2023-01-12 05:45] LABS: BILIRUBIN,TOTAL 0.8 MG/DL (0.1-1.0)
[2023-01-12 05:47] LABS: CREATININE SERUM 0.56 MG/DL (0.60-1.30)
[2023-01-12 06:13] LABS: BASOPHILS % (AUTO) 0 % (0-10); EOSINOPHILS # (AUTO) 0.2 10^3/uL (0.0-0.3); EOSINOPHILS % (AUTO) 2 % (0-10); HEMATOCRIT 29 % (35-52); HEMOGLOBIN 10.2 g/dL (11.5-16.0); LYMPHOCYTES # (AUTO) 1.6 10^3/uL (1.0-4.0); LYMPHOCYTES % (AUTO) 23 % (12-44); MEAN CORPUSCULAR HEMOGLOBIN 34 pg (25-34); MEAN CORPUSCULAR HGB CONC 35 g/dL (32-36); MEAN CORPUSCULAR VOLUME 96 fL (80-99); MEAN PLATELET VOLUME 11.6 fL (9.0-12.2); MONOCYTES # (AUTO) 0.6 10^3/uL (0.0-1.0); MONOCYTES % (AUTO) 8 % (0-12); NEUTROPHILS # (AUTO) 4.6 10^3/uL (1.8-7.8); NEUTROPHILS % (AUTO) 66 % (42-75); PLATELET COUNT 152 10^3/uL (130-400); WHITE BLOOD COUNT 6.9 10^3/uL (4.3-11.0)
[2023-01-12 06:41] LABS: EOSINOPHILS % (MANUAL) 1 %; LYMPHOCYTES % (MANUAL) 25 %; MONOCYTES % (MANUAL) 6 %; NEUTROPHILS % (MANUAL) 68 %
[2023-01-12 06:42] LABS: RBC MORPH NORMAL
[2023-01-12] MEDS ORDERED: POTASSIUM CHLORIDE 20 MEQ TABLET PO ONE (07:00)
--- NOTE | 2023-01-13 08:59 | Physician Query-Final Dx ---
Clinic Account Progress/Dx Physician Query: Please give diagnosis Please include # weeks gestation Date of Service Jan 12, 2023 at 03:38 SHAMAR,MarJan 13, 2023 08:59
[2023-01-29] MEDS ORDERED: ACHD5005 PO (07:25)
[2023-01-29] MEDS ORDERED: DOCU100C37 PO (07:25)
[2023-01-29] MEDS ORDERED: IBUP-844 PO (07:25)
== END 2023-01-12 07:25 | disposition home or self-care (01) ==
LOC: LDRP 03:38 → WSo 03:38
PROVIDERS: ATTEND Obstetrics & Gynecology
DX: O47.03 False labor before 37 completed weeks of gestation, third trimester (principal); Z3A.36 36 weeks gestation of pregnancy
CPT/HCPCS: 80053; 81000; 85007; 85027; 96360; G0463; 36415; 99213

== ENCOUNTER → 2023-01-17 | Outpatient (CLI) | payer MEDICAID ==
[~2023-01-17] VITALS: Ht 162.6 cm; Wt 76.0 kg
[~2023-01-17] MED LIST changes: +LOPE-134 PO
== END | disposition home or self-care (01) ==
LOC: PREOP 11:04
PROVIDERS: ATTEND Obstetrics & Gynecology
DX: Z01.818 Encounter for other preprocedural examination (principal)

== ENCOUNTER 2023-01-29 05:14 | Inpatient (IN) | payer MEDICAID ==
[~2023-01-29] VITALS: Ht 162.6 cm; Wt 78.0 kg
[2023-01-29] VITALS (11 sets, daily range): BP systolic 110–130; BP diastolic 61–79
[2023-01-29] MEDS ORDERED: CATHETER FLUSH 10 ML SYR IV PRN (05:30)
[2023-01-29] MEDS ORDERED: metroNIDAZOLE 500MG/100ML IVPB 100 ML IV ONE (05:30)
[2023-01-29] MEDS ORDERED: LACTATED RINGERS 1,000 ML 1,000 ML IV PRN (05:30)
[2023-01-29] MEDS ORDERED: METOCLOPRAMIDE INJ 10 MG/2 ML IV ONE (05:30)
[2023-01-29] MEDS ORDERED: CITRIC ACID/SODIUM CITRATE ORAL SOLN 30 ML PO ONE (05:30)
[2023-01-29] MEDS ORDERED: FAMOTIDINE INJ 20MG/2ML VIAL IV ONE (05:30)
[2023-01-29] MEDS ORDERED: CLINDAMYCIN 900 MG/50 ML IVPB 50 ML IV ONE (05:30)
--- OUTSIDE RECORDS SUMMARY | 2023-01-29 05:34 | XMS REPORT | Clinical Summary ---
Author Author [facility] Organization [facility] Address Unknown Phone Unavailable Care Team Providers Care Steel Sash Erector Name Role Phone PCP Unavailable Social History Tobacco Use Types Packs/Day Years Used Date Smoking Tobacco: Never Assessed Sex and Gender Information Value Date Recorded Sex Assigned at Not on file Gender Identity Not on file Sexual Orientation Not on file Plan of Treatment Not on file
--- OUTSIDE RECORDS SUMMARY | 2023-01-29 05:35 | XMS REPORT ---
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 confirmed 86590706 Problem Anxiety F41.9 confirmed 53647281 Problem Seasonal allergies J30.2 confirmed 634149158 Problem Complex 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 confirmed 727426827 Problem Missed period N92.6 confirmed 199764 00 Problem Fever R50.9 confirmed 750576931 Problem Pelvic congestion syndrome N94.89 confirmed 51593249 Problem Dysuria R30.0 confirmed 38538816 Problem Irregular periods N92.6 confirmed 15819831 Problem Vaginal bleeding N93.9 confirmed 152944207 Problem Mood disorder F39 confirmed 222417 05 Problem Seasonal allergic rhinitis due to pollen J30.1 confirmed 15395277 Problem Borderline personality disorder F60.3 confirmed 21612588 Problem Discharge from the vagina N89.8 confirmed 53794217 Problem Varicose veins of both lower extremities with pain I83.813 confirmed 19896895 Problem Abnormal uterine bleeding N93.9 confirmed 6242221486 9100 Problem Positive test Z32.01 confirmed 246562788 Problem Episode of recurrent major depressive disorder, unspecified depression episode severity F33.9 confirmed 881322241 Problem Allergic rhinitis, unspecified seasonality, unspecified trigger J30.9 confirmed 41847216 Problem Major depressive disorder, recurrent severe without psychotic features F33.2 confirmed 67363017 Problem Leg paresthesia R20.2 confirmed 038657008 Problem Amenorrhea N91.2 confirmed 67635137 ALLERGIES Allergen (clinical drug ingredient) Drug/Non Drug Allergy documented on EMR Reaction Allergy Type Onset Date Status Rocephin hives Drug Allergy Active IV Contrast rash/reddened skin Non Drug Allergy Active tramadol Tramadol HCl([facility] Code:[address]-60 ) rash Drug Allergy Active ENCOUNTERS from 1996 to 2022-11-25 Encounter Location Date Provider Diagnosis [facility] [address] [facility] [id number] [place] [address] 14 Nov, 2020 CINDY TANG IMMUNIZATIONS Vaccine Route Administration Date Status comvax hib/hep b (history) Unknown Mar 03, 1997 A dministered tdap (history) Unknown October 03, 2016 Administered tdap (history) Unknown June 02, 2018 Administere d tdap (history) Unknown Feb 28, 2021 Administered dtap (history) Unknown Oct 30, 2001 Administered gardasil-4 (history) Unknown June 19, 2006 Admin istered gardasil-4 (history) Unknown August 21, 2006 Adminis tered gardasil-4 (history) Unknown Mar 05, 2007 Adminis tered Hib 4 dose schedule Unknown 1996 Adminis tered PRIVATE FLULAVAL QUAD 0.5ML (6 MO AND UP) 2019 IM Intramuscular Dec 30, 2019 Administered PRIVATE FLULAVAL QUAD 0.5ML (6 MO AND UP) 2020 IM Intramuscular Dec 21, 2020 Administered hepatitis b pediatric (history) Unknown 1996 Administered hepatitis b pediatric (history) Unknown August 26 997 Administered hepatitis b pediatric (history) Unknown 1996 Administered DTaP-Hib Unknown 1996 Administered OPV Unknown July 28, 1997 Administered OPV Unknown 1996 Administered OPV Unknown 1996 Administered Hib 4 dose schedule Unknown July 28, 1997 Admini stered mmr-II (history) Unknown Oct 30, 2001 Administere d polio ipv (history) Unknown Oct 30, 2001 Administ ered PRIVATE FLULAVAL QUAD 0.5ML (6 MO AND UP) 2018 IM Intramuscular Jan 01, 2018 Administered PRIVATE FLULAVAL QUAD 0.5ML (6 MO AND UP) 2019 IM Intramuscular Dec 18, 2018 Administered hepatitis a (history) Unknown August 21, 2006 [place] hepatitis a (history) Unknown Mar 05, 2007 Admini christiane mmr-II (history) Unknown July 28, 1997 Adminloulou red dtap (history) Unknown 1996 Administered dtap (history) Unknown Mar 03, 1997 Administered dtap (history) Unknown September 22, 1997 Administered SOCIAL HISTORY Sex Assigned At : Social History Observation Description Sex Assigned At Unknown Alcohol Screen (Audit-C) Question Answer Notes Did you have a drink contain ing alcohol in the past year? Yes Points 1 Interpretation Negative How often did you have 6 or more drinks on one occasion in the past year? Never (0 points) How many drinks did you have on a typical day when you were drinking in the past year? 1 or 2 (0 points) How often did you have a dri nk containing alcohol in the past year? Monthly or less (1 point) Drug and Alcohol (Do not use) Question Answer Notes Total Score: 0 Interpretation: No problems reported DAST-10 (2020 Edition) Question Answer Notes 1. Have you used drugs other than those required for medical reasons? No 2. Do you abuse more than one drug at a time? No 3. Are you always able to st op using drugs when you want to? Yes 4. Have you had "blackouts" or "flashbacks" as a result of drug use? No 5. Do you ever feel bad or guilty about your wenceslao g use? No 6. Does your spouse (or pare nts) ever complain about your involvement with drugs? No 7. Have you neglected your f amily because of your use of drugs? No 8. Have you engaged in illeg al activities in order to obtain drugs? No 9. Have you ever experienced withdrawal symptoms (felt sick) when you stopped taking drugs? No 10. Have you had medical pro blems as a result of your drug use (e.g., memory loss, hepatitis, convulsions, bleeding etc.)? No Results: 0 Interpretation of Score: No problems reported Sexual History Question Answer Notes Had sex in the past 12 months (vaginal, oral, or anal)? Yes Last menstrual period 06/22/2020 Have you ever had a Sexually transmitted disease ? No with Men only Use protection? Yes How often? All of the time Tobacco use other than smoking: Question Answer Notes Are you an other tobacco user? No REASON FOR REFERRAL No Information MEDICATIONS Medication SIG (Take, Route, Fr equency, Duration) Notes Start Date End Date Status ZyrTEC 10 MG 1 tablet Active 27-1 MG 1 tablet Orally Once a day Active REASON FOR VISIT Medical Concerns. MEDICAL (GENERAL) HISTORY Type Description Date Medical History ovarian cysts Medical History pelvic pain Medical History Hemorrhoids, unspecified hemorrh oid type Medical History Vitamin D insufficiency Medical History Dysthymia Medical History pelvic congestion syndrome Medical History currently 2020 Medical History currently due FEB 05 023 Surgical History dental surgery Surgical History dilatation and curettage 6 Surgical History x 3 Surgical History wisdom teeth Hospitalization History Complications after C-Se ction 2016 Hospitalization History 2019 MENTAL STATUS No Information PLAN OF TREATMENT Next Appt Details Provider Name:MERISSA NIX , 2023-01-21 05:20:00 PM, [address] [facility] [address], [id number], [place], [address], Provider Name:STEPHY Rose, 2023-03-19 01:00:00 PM, [address] [facility] [facility] [address], [id number], [place], [address], Insurance Providers Payer Name Payer Address Payer Phone Insured Name Patient Relationship to Insured Coverage Start Date Coverage End Date Subscriber Number Group Number [facility] [address] [facility] [phone] Rosemary Zuniga Self - patient is the insured [id number] [address] [facility] [address] Rosemary Zuniga Self - patient is the insured [id number] [facility] [address] [facility] [address] [phone] Rosemary Zuniga Self - patient is the insured [id number] [address] [facility] [phone] Rosemary Zuniga Self - patient is the insured [id number] [address] [facility] [address] Rosemary Zuniga Self - patient is the insured [id number]
--- OUTSIDE RECORDS SUMMARY | 2023-01-29 05:35 | XMS REPORT ---
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 confirmed 10256412 Problem Anxiety F41.9 confirmed 82156511 Problem Seasonal allergies J30.2 confirmed 051467044 Problem Complex 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 confirmed 835351138 Problem Missed period N92.6 confirmed 745847 00 Problem Dysuria R30.0 confirmed 92747521 Problem Pelvic congestion syndrome N94.89 confirmed 43736009 Problem Positive test Z32.01 confirmed 761929672 Problem Irregular periods N92.6 confirmed 13435800 Problem Vaginal bleeding N93.9 confirmed 673070069 Problem Mood disorder F39 confirmed 295999 05 Problem Seasonal allergic rhinitis due to pollen J30.1 confirmed 89104954 Problem Borderline personality disorder F60.3 confirmed 74218527 Problem Discharge from the vagina N89.8 confirmed 43065737 Problem Varicose veins of both lower extremities with pain I83.813 confirmed 93034829 Problem Abnormal uterine bleeding N93.9 confirmed 9826493543 9100 Problem Fever R50.9 confirmed 661883881 Problem Episode of recurrent major depressive disorder, unspecified depression episode severity F33.9 confirmed 142375961 Problem Allergic rhinitis, unspecified seasonality, unspecified trigger J30.9 confirmed 23748352 Problem Major depressive disorder, recurrent severe without psychotic features F33.2 confirmed 18708532 Problem Leg paresthesia R20.2 confirmed 681937502 Problem Amenorrhea N91.2 confirmed 76270908 ALLERGIES Allergen (clinical drug ingredient) Drug/Non Drug Allergy documented on EMR Reaction Allergy Type Onset Date Status Rocephin hives Drug Allergy Active IV Contrast rash/reddened skin Non Drug Allergy Active tramadol Tramadol HCl([facility] Code:[address]-28 ) rash Drug Allergy Active ENCOUNTERS from 1996 to 2023-01-05 Encounter Location Date Provider Diagnosis [facility] [address] [facility] [id number] [place] [address] 17 Dec, 2020 JOSE BANEGAS IMMUNIZATIONS Vaccine Route Administration Date Status comvax [...] IM Intramuscular Dec 30, 2019 Administered PRIVATE FLU 23-24 (FLULAVAL) 6MO & UP IM Intramuscular Dec 24, 2022 Administered hepatitis b pediatric (history) Unknown 1996 Administered hepatitis b pediatric (history) Unknown August 26 99 Administered hepatitis b pediatric (history) Unknown 1996 Administered DTaP-Hib Unknown 1996 Administered OPV Unknown July 28, 1997 Administered OPV Unknown 1996 Administered OPV Unknown 1996 Administered Hib 4 dose schedule Unknown July 28, 1997 Admini stered PRIVATE FLULAVAL QUAD 0.5ML (6 MO AND UP) 2020 IM Intramuscular Dec 21, 2020 Administered mmr-II (history) Unknown Oct 30, 2001 Administere d polio ipv (history) Unknown Oct 30, 2001 Administ ered PRIVATE FLULAVAL QUAD 0.5ML (6 MO AND UP) 2019 IM Intramuscular Jan 01, 2018 Administered PRIVATE FLULAVAL QUAD 0.5ML (6 MO AND UP) 2018 IM Intramuscular Dec 18, 2018 Administered hepatitis a (history) Unknown August 21, 2006 Admini amberd hepatitis a (history) Unknown Mar 05, 2007 Admini amberd mmr-II (history) Unknown July 28, 1997 Administe red dtap (history) Unknown 1996 Administered dtap [...] No Information MEDICATIONS Medication SIG (Take, Route, Frequency, Duration) Notes Start Date End Date Status ZyrTEC 10 MG 1 tablet Active 27-1 MG 1 tablet Orally Once a day Active Ferrous Sulfate 325 (65 Fe) MG 1 tablet Orally Three times a Week for 30 days Nov, Active REASON FOR VISIT Requests return call MEDICAL (GENERAL) HISTORY Type Description Date Medical History ovarian cysts Medical History pelvic pain Medical History Hemorrhoids, unspecified hemorrh oid type Medical History Vitamin D insufficiency Medical History Dysthymia Medical History pelvic congestion syndrome Medical History currently 2020 Medical History currently due FEB 05 023 Surgical History dental surgery Surgical History dilatation and curettage Surgical History x 3 Surgical History wisdom teeth Hospitalization History Complications after C-Se ction 2017 Hospitalization History 2019 MENTAL STATUS No Information PLAN OF TREATMENT Medication Medication Name Sig Start Date Stop Date Ferrous Sulfate 325 (65 Fe) MG 1 tablet Orally Three times a Week for 30 days Nov, Next Appt Details Provider Name:MERISSA NIX , 2023-01-21 05:20:00 PM, [address] [facility], [id number], [place], [address], Provider Name:AGUILA GAYLE, 2023-03-19 01:00:00 PM, [address] [facility], [id number], [place], [address], Insurance Providers Payer Name Payer Address Payer Phone Insured Name Patient Relationship to Insured Coverage Start Date Coverage End Date Subscriber Number Group Number [facility] [address] [facility] [phone] Rosemary Zuniga Self - patient is the insured [id number] [facility] [address] [facility] [address] Rosemary Zuniga Self - patient is the insured [id number] [facility] [address] [facility] [address] Rosemary Zuniga Self - patient is the insured [id number] [place] [address] [facility] [address] [phone] Rosemary Zuniga Self - patient is the insured [id number] NON [address] [facility] [address] [phone] Rosemary Zuniga Self - patient is the insured [id number]
--- OUTSIDE RECORDS SUMMARY | 2023-01-29 05:35 | XMS REPORT ---
Author Author [facility] ter of [facility] ter of 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 confirmed 41309009 Problem Anxiety F41.9 confirmed 11581398 Problem Seasonal allergies J30.2 confirmed 870247035 Problem Complex 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 confirmed 528528566 Problem Missed period N92.6 confirmed 153362 00 Problem Fever R50.9 confirmed 199884857 Problem Pelvic congestion syndrome N94.89 confirmed 16979950 Problem Dysuria R30.0 confirmed 47741116 Problem Irregular periods N92.6 confirmed 89515682 Problem Vaginal bleeding N93.9 confirmed 222387752 Problem Mood disorder F39 confirmed 682173 05 Problem Seasonal allergic rhinitis due to pollen J30.1 confirmed 43459844 Problem Borderline personality disorder F60.3 confirmed 78557213 Problem Discharge from the vagina N89.8 confirmed 60434065 Problem Varicose veins of both lower extremities with pain I83.813 confirmed 76064186 Problem Abnormal uterine bleeding N93.9 confirmed 0764805960 9100 Problem Positive test Z32.01 confirmed 200113999 Problem Episode of recurrent major depressive disorder, unspecified depression episode severity F33.9 confirmed 019110210 Problem Allergic rhinitis, unspecified seasonality, unspecified trigger J30.9 confirmed 04757348 Problem Major depressive disorder, recurrent severe without psychotic features F33.2 confirmed 32890054 Problem Leg paresthesia R20.2 confirmed 057117509 Problem Amenorrhea N91.2 confirmed 57615115 ALLERGIES Allergen (clinical drug ingredient) Drug/Non Drug Allergy documented on EMR Reaction Allergy Type Onset Date Status Rocephin hives Drug Allergy Active IV Contrast rash/reddened skin Non Drug Allergy Active tramadol Tramadol HCl([facility] Code:[address]-53 ) rash Drug Allergy Active ENCOUNTERS from 1996 to 2022-11-09 Encounter Location Date Provider Diagnosis [facility] [address] [facility] [id number] [place] [address] Sep, CHARROGERIO duránKrystle Anxiety F41.9 ; Severe episode of recurrent major depressive disorder, without psychotic features F33.2 and Borderline personality disorder F60.3 IMMUNIZATIONS Vaccine Route Administration Date Status OPV Unknown July 28, 1997 Administered OPV Unknown 1996 Administered OPV Unknown 1996 Administered Hib 4 dose schedule Unknown July 28, 1997 Admini stered hepatitis b pediatric (history) Unknown 1996 Administered hepatitis b pediatric (history) Unknown August 26 99 Administered hepatitis b pediatric (history) Unknown 1996 Administered DTaP-Hib Unknown 1996 Administered PRIVATE FLULAVAL QUAD 0.5ML (6 MO AND UP) 2020 IM Intramuscular Dec 21, 2020 Administered Hib 4 dose schedule Unknown 1996 Adminis tered PRIVATE FLULAVAL QUAD 0.5ML (6 MO AND UP) 2018 IM Intramuscular Jan 01, 2018 Administered gardasil-4 (history) Unknown June 19, 2006 Admin istered gardasil-4 (history) Unknown August 21, 2006 Adminis tered gardasil-4 (history) Unknown Mar 05, 2007 Adminis tered comvax hib/hep b (history) Unknown Mar 03, 1997 A dministered tdap (history) Unknown October 03, 2016 Administered tdap (history) Unknown June 02, 2018 Administere d tdap (history) Unknown Feb 28, 2021 Administered PRIVATE FLULAVAL QUAD 0.5ML (6 MO AND UP) 2019 IM Intramuscular Dec 30, 2019 Administered dtap (history) Unknown 1996 Administered PRIVATE FLULAVAL QUAD 0.5ML (6 MO AND UP) 2019 IM Intramuscular Dec 18, 2018 Administered polio ipv (history) Unknown Oct 30, 2001 Administ ered mmr-II (history) Unknown Oct 30, 2001 Administere d dtap (history) Unknown Oct 30, 2001 Administered dtap (history) Unknown September 22, 1997 Administered dtap (history) Unknown Mar 03, 1997 Administered mmr-II (history) Unknown July 28, 1997 Administgaro andrew hepatitis a (history) Unknown Mar 05, 2007 Admini stered hepatitis a (history) Unknown August 21, 2006 Admini stered SOCIAL HISTORY Sex Assigned At : Social History Observation Description Sex Assigned At Unknown Alcohol Screen (Audit-C) Question Answer Notes Did you have a drink containing alcohol in the p ast year? No Points 0 Interpretation Negative Drug and Alcohol (Do not use) Question [...] Yes How often? All of the time PHQ2 Question Answer Notes In the last 2 weeks, how oft en have you had little interest or pleasure in doing things? Not at all In the last 2 weeks, how oft en have you been feeling down, depressed, or hopeless? Several days Total PHQ2 Score 1 Tobacco use other than smoking: Question Answer Notes Are you an other tobacco user? No REASON FOR REFERRAL No Information MEDICATIONS Medication SIG (Take, Route, Fr equency, Duration) Notes Start Date End Date Status ZyrTEC 10 MG 1 tablet Unknown 27-1 MG 1 tablet Orally Once a day Unknown REASON FOR VISIT [phone] MEDICAL (GENERAL) HISTORY Type Description Date Medical [...] Hospitalization History 2019 MENTAL STATUS No Information ASSESSMENTS Encounter Date Diagnosis Assessment Notes Treatment Notes Treatment Clinical Notes Sep, Severe episode of recurrent major depressive disorder, without psychotic features (ICD-10 - F33.2) Sep, Anxiety (ICD-10 - F41.9) Sep, Borderline personality disorder (ICD-10 - F60.3) PLAN OF TREATMENT Next Appt Details 1-2 Weeks Reason: Follow U p Provider Name:MERISSA NIX , 2023-01-21 05:20:00 PM, [address] [facility], [id number], [address], Provider Name:STEPHY Rose 2023-03-19 01:00:00 PM, [address] [facility], [id number], [place], [address], Follow Up:1-2 WeeksBH Follow Up Insurance Providers Payer Name Payer Address Payer Phone Insured Name Patient Relationship to Insured Coverage Start Date Coverage End Date Subscriber Number Group Number MELISSA GRANGER [employer] [address] [facility] [address] [employer] DONALD [facility] [id number] Rosemary Zuniga Self - patient is the insured [id number] [place] [address] [address] [facility] [phone] Rosemary Zuniga Self - patient is the insured [id number] [facility] 19 [address] [facility] [phone] Rosemary Zuniga Self - patient is the insured [id number] NON FQHC [facility] [address] [facility] [address] Rosemary Zuniga Self - patient is the insured [id number] NON [employer] [address] [facility] [address] Rosemary Zuniga Self - patient is the insured [id number]
--- OUTSIDE RECORDS SUMMARY | 2023-01-29 05:35 | XMS REPORT ---
Author Author [facility] ter of [facility] ter of [facility] Address Unknown Phone Unavailable Care Team Providers Care Mailing Jogger Name Role Phone CINDY TANG Unavailable PROBLEMS Type Condition ICD9-CM Code UCF22-OS Code Onset Dates Condition Status W/U Status Risk SNOMED Code Notes Problem Severe episode of recurrent major depressive disorder, without psychotic features F33.2 confirmed 68765476 Problem Acute stress reaction with predominately emotional disturbance F43.9 confirmed 93213877 Problem 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 confirmed 03906676 Problem Anxiety F41.9 confirmed 45286140 Problem Seasonal allergies J30.2 confirmed 475910022 Problem Complex 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 confirmed 371951393 Problem Missed period N92.6 confirmed 930580 00 Problem Fever R50.9 confirmed 334443212 Problem Pelvic congestion syndrome N94.89 confirmed 74697597 Problem Dysuria R30.0 confirmed 16333066 Problem Irregular periods N92.6 confirmed 09464414 Problem Vaginal bleeding N93.9 confirmed 020319558 Problem Mood disorder F39 confirmed 964057 05 Problem Seasonal allergic rhinitis due to pollen J30.1 confirmed 58686094 Problem Borderline personality disorder F60.3 confirmed 34922120 Problem Discharge from the vagina N89.8 confirmed 53589500 Problem Varicose veins of both lower extremities with pain I83.813 confirmed 65331237 Problem Abnormal uterine bleeding N93.9 confirmed 6651536185 9100 Problem Positive test Z32.01 confirmed 259721660 Problem Episode of recurrent major depressive disorder, unspecified depression episode severity F33.9 confirmed 963955367 Problem Allergic rhinitis, unspecified seasonality, unspecified trigger J30.9 confirmed 95748694 Problem Major depressive disorder, recurrent severe without psychotic features F33.2 confirmed 66921807 Problem Leg paresthesia R20.2 confirmed 171857646 Problem Amenorrhea N91.2 confirmed 68941185 ALLERGIES Allergen (clinical drug ingredient) Drug/Non Drug Allergy documented on EMR Reaction Allergy Type Onset Date Status Rocephin hives Drug Allergy Active IV Contrast rash/reddened skin Non Drug Allergy Active tramadol Tramadol HCl([facility] Code:[address]-79 ) rash Drug Allergy Active ENCOUNTERS from 1996 to 2023-01-03 Encounter Location Date Provider Diagnosis [facility] [address] [facility] [id number] [place] [address] 13 Dec, 2020 CINDY TANG Severe episode of recurrent major depressive disorder, without psychotic features F33.2 IMMUNIZATIONS Vaccine Route Administration Date Status comvax [...] Unknown July 28, 1997 Admini stered PRIVATE FLU 23-24 (FLULAVAL) 6MO & UP IM Intramuscular Dec 24, 2022 Administered mmr-II (history) Unknown Oct 30, 2001 [...] 30 days Nov, Active REASON FOR VISIT OCK HAP Update MEDICAL (GENERAL) HISTORY Type Description Date Medical [...] Assessment Notes Treatment Notes Treatment Clinical Notes Dec, Severe episode of recurrent major depressive disorder, without psychotic features (ICD-10 - F33.2) Dec, Other Goals and educational tools provided to patient PLAN OF TREATMENT Medication Medication Name Sig Start Date Stop Date Ferrous Sulfate 325 (65 Fe) MG 1 tablet Orally Three times a Week for 30 days Nov, Next Appt Details 2 - 3 Days Reason:Resources/ Check In Provider Name:MERISSA NIX , 2023-01-21 05:20:00 PM, [address] [facility], [id number], [place], [address], Provider Name:AGUILA GAYLE, 2023-03-19 01:00:00 PM, [address] [facility], [id number], [place], [address], Follow Up:2 - 3 DaysResources/ Check In Insurance Providers Payer Name Payer Address Payer Phone Insured Name Patient Relationship to Insured Coverage Start Date Coverage End Date Subscriber Number Group Number MELISSA Neul SKYGEN 19 [facility] [address] [facility] [address] Rosemary Zuniga Self - patient is the insured [id number] NON FQHC [facility] 19 [address] [facility] [address] Rosemary Zuniga Self - patient is the insured [id number] [facility] 19 [address] [facility] [address] [phone] Rosemary Zuniga Self - patient is the insured [id number] NON FQHC [address] [facility] [address] Rosemary Zuniga Self - patient is the insured [id number] [facility] 19 [address] [facility] [address] [phone] Rosemary Zuniga Self - patient is the insured [id number]
--- OUTSIDE RECORDS SUMMARY | 2023-01-29 05:35 | XMS REPORT ---
Author Author [facility] ter [facility] ter [facility] Address Unknown Phone Unavailable Care Team Providers Care Sustain Engineer Name Role Phone BARRETT Redman Unavailable [phone] PROBLEMS Type Condition ICD9-CM Code WRQ93-YE Code Onset Dates Condition Status W/U Status Risk SNOMED Code Notes Problem Severe episode of recurrent major depressive disorder, without psychotic features F33.2 confirmed 40829152 Problem Acute stress reaction with predominately emotional disturbance F43.9 confirmed 25140110 Problem 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 confirmed 03015706 Problem Anxiety F41.9 confirmed 91314706 Problem Seasonal allergies J30.2 confirmed 936830727 Problem Complex 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 confirmed 686384499 Problem Missed period N92.6 confirmed 699402 00 Problem Fever R50.9 confirmed 941214780 Problem Pelvic congestion syndrome N94.89 confirmed 09516194 Problem Dysuria R30.0 confirmed 91585811 Problem Irregular periods N92.6 confirmed 16458570 Problem Vaginal bleeding N93.9 confirmed 480929730 Problem Mood disorder F39 confirmed 916964 05 Problem Seasonal allergic rhinitis due to pollen J30.1 confirmed 65915487 Problem Borderline personality disorder F60.3 confirmed 60743070 Problem Discharge from the vagina N89.8 confirmed 43162721 Problem Varicose veins of both lower extremities with pain I83.813 confirmed 66568781 Problem Abnormal uterine bleeding N93.9 confirmed 5561235868 9100 Problem Positive test Z32.01 confirmed 643035412 Problem Episode of recurrent major depressive disorder, unspecified depression episode severity F33.9 confirmed 043055033 Problem Allergic rhinitis, unspecified seasonality, unspecified trigger J30.9 confirmed 09977053 Problem Major depressive disorder, recurrent severe without psychotic features F33.2 confirmed 86265044 Problem Leg paresthesia R20.2 confirmed 040517281 Problem Amenorrhea N91.2 confirmed 45198287 ALLERGIES Allergen (clinical drug ingredient) Drug/Non Drug Allergy documented on EMR Reaction Allergy Type Onset Date Status Rocephin hives Drug Allergy Active IV Contrast rash/reddened skin Non Drug Allergy Active tramadol Tramadol HCl([facility] Code:[address]-39 ) rash Drug Allergy Active ENCOUNTERS from 1996 to 2022-12-24 Encounter Location Date Provider Diagnosis [facility] [address] [facility] [id number] [place] [address] Oct, BARRETT Redman Severe episode of recurrent major depressive disorder, without psychotic features F33.2 IMMUNIZATIONS Vaccine Route Administration Date Status DTaP-Hib Unknown 1996 Administered OPV Unknown July 28, 1997 Administered OPV Unknown 1996 Administered OPV Unknown 1996 Administered hepatitis a (history) Unknown August 21, 2006 Admini sterenghia hepatitis b pediatric (history) Unknown 1996 Administered hepatitis b pediatric (history) Unknown August 26 997 Administered hepatitis b pediatric (history) Unknown 1996 Administered PRIVATE FLULAVAL QUAD 0.5ML (6 MO AND UP) 2018 IM Intramuscular Jan 01, 2018 Administered Hib 4 dose schedule Unknown July 28, 1997 Admini stered Hib 4 dose schedule Unknown 1996 Adminis tered gardasil-4 (history) Unknown August 21, 2006 Adminis [...] 2020 IM Intramuscular Dec 21, 2020 Administered dtap (history) Unknown Mar 03, 1997 Administered dtap (history) Unknown 1996 Administered PRIVATE FLULAVAL QUAD 0.5ML (6 MO AND UP) 2018 IM Intramuscular Dec 18, 2018 Administered polio ipv (history) Unknown Oct 30, 2001 Administ ered gardasil-4 (history) Unknown June 19, 2006 Admin istered dtap (history) Unknown Oct 30, 2001 Administered dtap (history) Unknown September 22, 1997 Administered mmr-II (history) Unknown Oct 30, 2001 Administere d mmr-II (history) Unknown July 28, 1997 Adminloulou morales hepatitis a (history) Unknown Mar 05, 2007 Admini amberd SOCIAL HISTORY Sex Assigned At : Social [...] 30 days Nov, Active REASON FOR VISIT [phone] MEDICAL (GENERAL) HISTORY Type Description Date Medical [...] Assessment Notes Treatment Notes Treatment Clinical Notes Oct, Severe episode of recurrent major depressive disorder, without psychotic features (ICD-10 - F33.2) PLAN OF TREATMENT Medication Medication Name Sig Start Date Stop Date Ferrous Sulfate 325 (65 Fe) MG 1 tablet Orally Three times a Week for 30 days Nov, Next Appt Details 1-2 Weeks Reason: Follow U p Provider Name:MERISSA NIX , 2023-01-21 05:20:00 PM, [address] [facility], [id number], [place], [address], Provider Name:AGUILA GAYLE, 2023-03-19 01:00:00 PM, [address] [facility], [id number], [place], [address], Follow Up:1-2 WeeksBH Follow Up
--- OUTSIDE RECORDS SUMMARY | 2023-01-29 05:35 | XMS REPORT ---
Author Author [facility] ter of [facility] ter of [facility] Address Unknown Phone Unavailable Care Team Providers Care Miller Head Wet Process Name Role Phone CINDY TANG Unavailable PROBLEMS Type Condition ICD9-CM Code STB75-GV Code Onset Dates Condition Status W/U Status Risk SNOMED Code Notes Problem Severe episode of recurrent major depressive disorder, without psychotic features F33.2 confirmed 22384880 Problem Acute stress reaction with predominately emotional disturbance F43.9 confirmed 06907277 Problem 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 confirmed 52318176 Problem Anxiety F41.9 confirmed 89639432 Problem Seasonal allergies J30.2 confirmed 816043246 Problem Complex 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 confirmed 083913833 Problem Missed period N92.6 confirmed 486954 00 Problem Fever R50.9 confirmed 851676383 Problem Pelvic congestion syndrome N94.89 confirmed 18120065 Problem Dysuria R30.0 confirmed 03684793 Problem Irregular periods N92.6 confirmed 26563001 Problem Vaginal bleeding N93.9 confirmed 680349126 Problem Mood disorder F39 confirmed 346348 05 Problem Seasonal allergic rhinitis due to pollen J30.1 confirmed 44702371 Problem Borderline personality disorder F60.3 confirmed 64417842 Problem Discharge from the vagina N89.8 confirmed 66830596 Problem Varicose veins of both lower extremities with pain I83.813 confirmed 53564942 Problem Abnormal uterine bleeding N93.9 confirmed 7376075668 9100 Problem Positive test Z32.01 confirmed 463892862 Problem Episode of recurrent major depressive disorder, unspecified depression episode severity F33.9 confirmed 880706304 Problem Allergic rhinitis, unspecified seasonality, unspecified trigger J30.9 confirmed 75969234 Problem Major depressive disorder, recurrent severe without psychotic features F33.2 confirmed 48073117 Problem Leg paresthesia R20.2 confirmed 515313850 Problem Amenorrhea N91.2 confirmed 60965202 ALLERGIES Allergen (clinical drug ingredient) Drug/Non Drug Allergy documented on EMR Reaction Allergy Type Onset Date Status Rocephin hives Drug Allergy Active IV Contrast rash/reddened skin Non Drug Allergy Active tramadol Tramadol HCl([facility] Code:[address]-80 ) rash Drug Allergy Active ENCOUNTERS from 1996 to 2023-01-23 Encounter Location Date Provider Diagnosis [facility] [address] [facility] [id number] [place] [address] Dec, CINDY TANG Severe episode of recurrent major depressive disorder, without psychotic features F33.2 IMMUNIZATIONS Vaccine Route Administration Date Status hepatitis b pediatric (history) Unknown 1996 Administered DTaP-Hib Unknown 1996 Administered OPV Unknown July 28, 1997 Administered OPV Unknown 1996 Administered hepatitis a (history) Unknown Mar 05, 2007 Admini stered hepatitis a (history) Unknown August 21, 2006 Admini stered hepatitis b pediatric (history) Unknown 1996 Administered hepatitis b pediatric (history) Unknown August 26 99 Administered PRIVATE FLU 23-24 (FLULAVAL) 6MO & UP IM Intramuscular Dec 24, 2022 Administered OPV Unknown 1996 Administered Hib 4 dose schedule Unknown July 28, 1997 Admini stered gardasil-4 (history) Unknown August 21, 2006 Adminis [...] 4 dose schedule Unknown 1996 Adminis tered dtap (history) Unknown Mar 03, 1997 Administered dtap (history) Unknown 1996 Administered PRIVATE FLULAVAL QUAD 0.5ML (6 MO AND UP) 2018 IM Intramuscular Dec 18, 2018 Administered PRIVATE FLULAVAL QUAD 0.5ML (6 MO AND UP) 2019 IM Intramuscular Jan 01, 2018 Administered gardasil-4 (history) Unknown June 19, 2006 Admin istered dtap (history) Unknown Oct 30, 2001 Administered dtap (history) Unknown September 22, 1997 Administered polio ipv (history) Unknown Oct 30, 2001 Administ ered mmr-II (history) Unknown Oct 30, 2001 Administere d mmr-II (history) Unknown July 28, 1997 Administgaro morales SOCIAL HISTORY Sex Assigned At : Social [...] days Nov, Active REASON FOR VISIT OCK Services MEDICAL (GENERAL) HISTORY Type Description Date Medical [...] for 30 days Nov, Next Appt Details prn Reason:Check In Provider Name:AGUILA GAYLE, 2023-03-19 01:00:00 PM, [address] [facility], [id number], [place], [address], Follow Up:prnCheck In Insurance Providers Payer Name Payer Address Payer Phone Insured Name Patient Relationship to Insured Coverage Start Date Coverage End Date Subscriber Number Group Number NON [facility] [address] [facility] [address] Rosemary Zuniga Self - patient is the insured [id number] [facility] [address] [facility] [address] Rosemary Zuniga Self - patient is the insured [id number] [facility] [address] [facility] [address] Rosemary Zuniga Self - patient is the insured [id number] [address] [facility] [address] [phone] Rosemary Zuniga Self - patient is the insured [id number] NON [address] [facility] [address] [phone] Rosemary Zuniga Self - patient is the insured [id number]
--- OUTSIDE RECORDS SUMMARY | 2023-01-29 05:35 | XMS REPORT ---
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 confirmed 15054702 Problem Anxiety F41.9 confirmed 50883084 Problem Seasonal allergies J30.2 confirmed 856771738 Problem Complex 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 confirmed 392287058 Problem Missed period N92.6 confirmed 509602 00 Problem Fever R50.9 confirmed 332040369 Problem Pelvic congestion syndrome N94.89 confirmed 26977344 Problem Dysuria R30.0 confirmed 01321124 Problem Irregular periods N92.6 confirmed 03915490 Problem Vaginal bleeding N93.9 confirmed 814089778 Problem Mood disorder F39 confirmed 918736 05 Problem Seasonal allergic rhinitis due to pollen J30.1 confirmed 87888305 Problem Borderline personality disorder F60.3 confirmed 40880402 Problem Discharge from the vagina N89.8 confirmed 09596750 Problem Varicose veins of both lower extremities with pain I83.813 confirmed 68231453 Problem Abnormal uterine bleeding N93.9 confirmed 2941480268 9100 Problem Positive test Z32.01 confirmed 436500072 Problem Episode of recurrent major depressive disorder, unspecified depression episode severity F33.9 confirmed 981662706 Problem Allergic rhinitis, unspecified seasonality, unspecified trigger J30.9 confirmed 90213774 Problem Major depressive disorder, recurrent severe without psychotic features F33.2 confirmed 26188862 Problem Leg paresthesia R20.2 confirmed 153195294 Problem Amenorrhea N91.2 confirmed 36602676 ALLERGIES Allergen (clinical drug ingredient) Drug/Non Drug Allergy documented on EMR Reaction Allergy Type Onset Date Status Rocephin hives Drug Allergy Active IV Contrast rash/reddened skin Non Drug Allergy Active tramadol Tramadol HCl([facility] Code:[address]-66 ) rash Drug Allergy Active ENCOUNTERS from 1996 to 2022-12-02 Encounter Location Date Provider Diagnosis [facility] [address] [id number] [place] [address] Sep, CHARROGERIO shahJAYLINRUDDY Anxiety F41.9 ; Severe episode of recurrent major depressive disorder, without psychotic features F33.2 and Borderline personality disorder F60.3 IMMUNIZATIONS Vaccine Route Administration Date Status gardasil-4 (history) Unknown August 21, 2006 Adminis tered gardasil-4 (history) Unknown June 19, 2006 Admin istered dtap (history) Unknown Oct 30, 2001 Administered hepatitis a (history) Unknown Mar 05, 2007 Admini stered tdap (history) Unknown Feb 28, 2021 Administered tdap (history) Unknown June 02, 2018 Administere d tdap (history) Unknown October 03, 2016 Administered gardasil-4 (history) Unknown Mar 05, 2007 Adminis tered Hib 4 dose schedule Unknown 1996 Adminis tered hepatitis a (history) Unknown August 21, 2006 Admini stered PRIVATE FLULAVAL QUAD 0.5ML (6 MO AND UP) 2019 IM Intramuscular Jan 01, 2018 Administered hepatitis b pediatric (history) Unknown 1996 [...] 2019 IM Intramuscular Dec 18, 2018 Administered dtap (history) Unknown 1996 Administered dtap (history) Unknown Mar 03, 1997 Administered dtap (history) Unknown September 22, 1997 Administered mmr-II (history) Unknown July 28, 1997 Administe red mmr-II (history) Unknown Oct 30, 2001 Administere d polio ipv (history) Unknown Oct 30, 2001 Administ ered comvax hib/hep b (history) Unknown Mar 03, 1997 A dministered PRIVATE FLULAVAL QUAD 0.5ML (6 MO AND UP) 2020 IM Intramuscular Dec 21, 2020 Administered PRIVATE FLULAVAL QUAD 0.5ML (6 MO AND UP) 2019 IM Intramuscular Dec 30, 2019 Administered SOCIAL HISTORY Sex Assigned At : [...] Duration) Notes Start Date End Date Status Amoxicillin 875 MG 1 tablet Orally Twic e a day for 10 days Oct, Active ZyrTEC 10 MG 1 tablet Active 27-1 MG 1 tablet Orally Once a day Active REASON FOR VISIT f/u MEDICAL (GENERAL) HISTORY Type Description Date Medical [...] disorder (ICD-10 - F60.3) PLAN OF TREATMENT Medication Medication Name Sig Start Date Stop Date Amoxicillin 875 MG 1 tablet Orally Twice a day for 10 days Oct, Next Appt Details 1-2 Weeks Reason: Follow U p Provider Name:MERISSA NIX , 2023-01-21 05:20:00 PM, [address], [id number], [place], [address], Provider Name:STEPHY Rose 2023-03-19 01:00:00 PM, [address] [facility], [id number], [place], [address], Follow Up:1-2 WeeksBH Follow Up Insurance Providers Payer Name Payer Address Payer Phone Insured Name Patient Relationship to Insured Coverage Start Date Coverage End Date Subscriber Number Group Number [place] [id number] [address] [facility] [address] [phone] Rosemary Zuniga Self - patient is the insured [id number] NON [employer] [address] [facility] [address] Rosemary Zuniga Self - patient is the insured [id number] [address] [facility] [address] Rosemary Zuniga Self - patient is the insured [id number] [facility] 19 [address] [facility] [address] [phone] Rosemary Zuniga Self - patient is the insured [id number] NON [employer]HC [facility] 19 [address] [facility] [address] Rosemary Zuniga Self - patient is the insured [id number]
--- OUTSIDE RECORDS SUMMARY | 2023-01-29 05:35 | XMS REPORT ---
Author Author [facility] ter of [facility] ter of [facility] Address Unknown Phone Unavailable Care Team Providers Care Consulting Marine Engineer Name Role Phone BARRETT Redman Unavailable [phone] PROBLEMS Type Condition ICD9-CM Code KFZ01-FT Code Onset Dates Condition Status W/U Status Risk SNOMED Code Notes Problem Severe episode of recurrent major depressive disorder, without psychotic features F33.2 confirmed 63577001 Problem Acute stress reaction with predominately emotional disturbance F43.9 confirmed 81411226 Problem 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 confirmed 23765131 Problem Anxiety F41.9 confirmed 02711698 Problem Seasonal allergies J30.2 confirmed 143158400 Problem Complex 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 confirmed 510954901 Problem Missed period N92.6 confirmed 390753 00 Problem Fever R50.9 confirmed 198583728 Problem Pelvic congestion syndrome N94.89 confirmed 76487226 Problem Dysuria R30.0 confirmed 29399357 Problem Irregular periods N92.6 confirmed 07483157 Problem Vaginal bleeding N93.9 confirmed 674145668 Problem Mood disorder F39 confirmed 498970 05 Problem Seasonal allergic rhinitis due to pollen J30.1 confirmed 08924239 Problem Borderline personality disorder F60.3 confirmed 16817248 Problem Discharge from the vagina N89.8 confirmed 35308643 Problem Varicose veins of both lower extremities with pain I83.813 confirmed 64258962 Problem Abnormal uterine bleeding N93.9 confirmed 6462203184 9100 Problem Positive test Z32.01 confirmed 232494368 Problem Episode of recurrent major depressive disorder, unspecified depression episode severity F33.9 confirmed 155993988 Problem Allergic rhinitis, unspecified seasonality, unspecified trigger J30.9 confirmed 08855690 Problem Major depressive disorder, recurrent severe without psychotic features F33.2 confirmed 94881689 Problem Leg paresthesia R20.2 confirmed 390565937 Problem Amenorrhea N91.2 confirmed 08723566 ALLERGIES Allergen (clinical drug ingredient) Drug/Non Drug Allergy documented on EMR Reaction Allergy Type Onset Date Status Rocephin hives Drug Allergy Active IV Contrast rash/reddened skin Non Drug Allergy Active tramadol Tramadol HCl([facility] Code:[address]-19 ) rash Drug Allergy Active ENCOUNTERS from 1996 to 2022-12-22 Encounter Location Date Provider Diagnosis [facility] [address] [facility] [id number] [place] [address] Oct, BARRETT Redman IMMUNIZATIONS Vaccine Route Administration Date Status comvax [...] 30 days Nov, Active REASON FOR VISIT [phone] MEDICAL (GENERAL) HISTORY Type Description Date Medical [...] NIX , 2023-01-21 05:20:00 PM, [address] [facility], [id number], [place], [address], Provider Name:AGUILA GAYLE, 2023-03-19 01:00:00 PM, [address] [facility], [id number], [place], [address], Follow Up:1-2 WeeksBH Follow Up Insurance Providers Payer Name Payer Address Payer Phone Insured Name Patient Relationship to Insured Coverage Start Date Coverage End Date Subscriber Number Group Number MELISSA SCIDEMETRIUS [employer] [address] [facility] [address] [facility] [address] Rosemary Zuniga Self - patient is the insured [id number] [facility] 19 [address] [facility] [address] Rosemary Zuniga Self - patient is the insured [id number] [facility] 19 [address] [facility] [address] Rosemary Zuniga Self - patient is the insured [id number] NON [employer] [address] [facility] [address] Rosemary Zuniga Self - patient is the insured [id number] NON [place] [address] [address] [facility] [address] Rosemary Zuniga Self - patient is the insured [id number]
--- OUTSIDE RECORDS SUMMARY | 2023-01-29 05:35 | XMS REPORT ---
Author Author [facility] ter of [facility] ter of [facility] Address Unknown Phone Unavailable Care Team Providers Care Histology Tech Name Role Phone BARRETT Redman Unavailable PROBLEMS Type Condition ICD9-CM Code PUU26-EO Code Onset Dates Condition Status W/U Status Risk SNOMED Code Notes Problem Severe episode of recurrent major depressive disorder, without psychotic features F33.2 confirmed 10390638 Problem Acute stress reaction with predominately emotional disturbance F43.9 confirmed 47398685 Problem 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 confirmed 94647015 Problem Anxiety F41.9 confirmed 72180866 Problem Seasonal allergies J30.2 confirmed 195734582 Problem Complex 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 confirmed 532559811 Problem Missed period N92.6 confirmed 925767 00 Problem Fever R50.9 confirmed 133543438 Problem Pelvic congestion syndrome N94.89 confirmed 07520961 Problem Dysuria R30.0 confirmed 94462703 Problem Irregular periods N92.6 confirmed 82711677 Problem Vaginal bleeding N93.9 confirmed 713958574 Problem Mood disorder F39 confirmed 957321 05 Problem Seasonal allergic rhinitis due to pollen J30.1 confirmed 57521295 Problem Borderline personality disorder F60.3 confirmed 38237142 Problem Discharge from the vagina N89.8 confirmed 38112480 Problem Varicose veins of both lower extremities with pain I83.813 confirmed 57435021 Problem Abnormal uterine bleeding N93.9 confirmed 0600851802 9100 Problem Positive test Z32.01 confirmed 486722612 Problem Episode of recurrent major depressive disorder, unspecified depression episode severity F33.9 confirmed 143785524 Problem Allergic rhinitis, unspecified seasonality, unspecified trigger J30.9 confirmed 95253458 Problem Major depressive disorder, recurrent severe without psychotic features F33.2 confirmed 96460267 Problem Leg paresthesia R20.2 confirmed 288028821 Problem Amenorrhea N91.2 confirmed 12125186 ALLERGIES Allergen (clinical drug ingredient) Drug/Non Drug Allergy documented on EMR Reaction Allergy Type Onset Date Status Rocephin hives Drug Allergy Active IV Contrast rash/reddened skin Non Drug Allergy Active tramadol Tramadol HCl([facility] Code:[address]-06 ) rash Drug Allergy Active ENCOUNTERS from 1996 to 2023-01-27 Encounter Location Date Provider Diagnosis [facility] [address] [facility] [id number] [place] [address] 18 Dec, 2020 BARRETT Redman IMMUNIZATIONS Vaccine Route Administration Date [...] a (history) Unknown August 21, 2006 Admini christiane hepatitis a (history) Unknown Mar 05, 2007 Admini christiane mmr-II (history) Unknown July 28, 1997 Administgaro red dtap (history) Unknown 1996 Administered dtap [...] 30 days Nov, Active REASON FOR VISIT *Requests return call MEDICAL (GENERAL) HISTORY Type Description [...] 30 days Nov, Next Appt Details Provider Name:AGUILA GAYLE, 2023-03-19 01:00:00 PM, [address] [facility], [id number], [place], [address], Insurance Providers Payer Name Payer Address Payer Phone Insured Name Patient Relationship to Insured Coverage Start Date Coverage End Date Subscriber Number Group Number [facility] 19 [address] [facility] [address] [phone] Rosemary Zuniga Self - patient is the insured [id number] [address] [facility] [address] Rosemary Zuniga Self - patient is the insured [id number] [facility] 19 [address] [facility] [address] Rosemary Zuniga Self - patient is the insured [id number] [address] [facility] [address] Rosemary Zuniga Self - patient is the insured [id number] [address] [facility] [address] Rosemary Zuniga Self - patient is the insured [id number]
--- OUTSIDE RECORDS SUMMARY | 2023-01-29 05:35 | XMS REPORT ---
Author Author [facility] ter of [facility] ter of [facility] Address Unknown Phone Unavailable Care Team Providers Care White Sidewall Tire Buffer Name Role Phone JILLIAN Hopkins Unavailable PROBLEMS Type Condition ICD9-CM Code ZXB24-XZ Code Onset Dates Condition Status W/U Status Risk SNOMED Code Notes Problem Severe episode of recurrent major depressive disorder, without psychotic features F33.2 confirmed 39367424 Problem Acute stress reaction with predominately emotional disturbance F43.9 confirmed 99848511 Problem 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 confirmed 53918331 Problem Anxiety F41.9 confirmed 57617622 Problem Seasonal allergies J30.2 confirmed 577595391 Problem Complex 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 confirmed 975208100 Problem Missed period N92.6 confirmed 925047 00 Problem Fever R50.9 confirmed 426936311 Problem Pelvic congestion syndrome N94.89 confirmed 68924412 Problem Dysuria R30.0 confirmed 03644649 Problem Irregular periods N92.6 confirmed 10747579 Problem Vaginal bleeding N93.9 confirmed 673874891 Problem Mood disorder F39 confirmed 617805 05 Problem Seasonal allergic rhinitis due to pollen J30.1 confirmed 30554899 Problem Borderline personality disorder F60.3 confirmed 76931382 Problem Discharge from the vagina N89.8 confirmed 92771495 Problem Varicose veins of both lower extremities with pain I83.813 confirmed 80289557 Problem Abnormal uterine bleeding N93.9 confirmed 3627174830 9100 Problem Positive test Z32.01 confirmed 871899938 Problem Episode of recurrent major depressive disorder, unspecified depression episode severity F33.9 confirmed 435106747 Problem Allergic rhinitis, unspecified seasonality, unspecified trigger J30.9 confirmed 03312503 Problem Major depressive disorder, recurrent severe without psychotic features F33.2 confirmed 25073439 Problem Leg paresthesia R20.2 confirmed 744081509 Problem Amenorrhea N91.2 confirmed 76385730 ALLERGIES Allergen (clinical drug ingredient) Drug/Non Drug Allergy documented on EMR Reaction Allergy Type Onset Date Status Rocephin hives Drug Allergy Active IV Contrast rash/reddened skin Non Drug Allergy Active tramadol Tramadol HCl([facility] Code:[address]-50 ) rash Drug Allergy Active ENCOUNTERS from 1996 to 2022-12-21 Encounter Location Date Provider Diagnosis [facility] [address] [facility] [id number] [place] [address] 04 Dec, 2020 JILLIAN Hopkins Dental examination Z01.20 and Dry socket M27.3 IMMUNIZATIONS Vaccine Route Administration Date Status comvax [...] user? No REASON FOR REFERRAL No Information VITAL SIGNS Height 64 in Dec, Height-cm 162.56 cm Dec, Blood pressure systolic 138 mmHg Dec, Blood pressure diastolic 60 mmHg Dec, MEDICATIONS Medication SIG (Take, Route, Frequency, Duration) Notes Start Date End Date Status ZyrTEC 10 MG 1 tablet Active 27-1 MG 1 tablet Orally Once a day Active Ferrous Sulfate 325 (65 Fe) MG 1 tablet Orally Three times a Week for 30 days Nov, Active REASON FOR VISIT Post op from TE with Dr Brown MEDICAL (GENERAL) HISTORY Type Description Date Medical [...] Notes Treatment Notes Treatment Clinical Notes Dec, Dry socket (ICD-10 - M27.3) Dec, Dental examination (ICD-10 - Z01.20) PLAN OF TREATMENT Medication Medication Name Sig Start Date Stop Date Ferrous Sulfate 325 (65 Fe) MG 1 tablet Orally Three times a Week for 30 days Nov, Next Appt Details prn Reason:SJ/Prophy Provider Name:MERISSA NIX , 2023-01-21 05:20:00 PM, [address] [facility], [id number], [place], [address], Provider Name:AGUILA GAYLE, 2023-03-19 01:00:00 PM, [address] [facility], [id number], [place], [address], Follow Up:prnPOE/Prophy Insurance Providers Payer Name Payer Address Payer Phone Insured Name Patient Relationship to Insured Coverage Start Date Coverage End Date Subscriber Number Group Number MELISSA [facility] [address] [facility] [address] [phone] Rosemary Zuniga Self - patient is the insured [id number] [address] [facility] [address] Rosemary Zuniga Self - patient is the insured [id number] [facility] 19 [address] [facility] [id number] Rosemary Zuniga Self - patient is the insured [id number] NON FQHC [facility] 19 [address] [facility] [address] Rosemary Zuniga Self - patient is the insured [id number] NON [employer] [address] [facility] [address] Rosemary Zuniga Self - patient is the insured [id number]
--- OUTSIDE RECORDS SUMMARY | 2023-01-29 05:35 | XMS REPORT ---
Author Author [facility] ter of [facility] ter of [facility] [place] Address Unknown Phone Unavailable Care Team Providers Care Deaf And Hard Of Hearing Teacher Name Role Phone JILLIAN Hopkins Unavailable PROBLEMS Type Condition ICD9-CM Code [id number] Code Onset Dates Condition Status W/U Status Risk SNOMED Code Notes Problem Severe episode of recurrent major depressive disorder, without psychotic features F33.2 confirmed 81862570 Problem Acute stress reaction with predominately emotional disturbance F43.9 confirmed 16501773 Problem 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 confirmed 40432631 Problem Anxiety F41.9 confirmed 74692501 Problem Seasonal allergies J30.2 confirmed 685095717 Problem Complex 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 confirmed 731217343 Problem Missed period N92.6 confirmed 587908 00 Problem Fever R50.9 confirmed 363029700 Problem Pelvic congestion syndrome N94.89 confirmed 67526431 Problem Dysuria R30.0 confirmed 46091712 Problem Irregular periods N92.6 confirmed 13317425 Problem Vaginal bleeding N93.9 confirmed 286309784 Problem Mood disorder F39 confirmed 029963 05 Problem Seasonal allergic rhinitis due to pollen J30.1 confirmed 25958667 Problem Borderline personality disorder F60.3 confirmed 99466968 Problem Discharge from the vagina N89.8 confirmed 56444466 Problem Varicose veins of both lower extremities with pain I83.813 confirmed 35610874 Problem Abnormal uterine bleeding N93.9 confirmed 6536403582 9100 Problem Positive test Z32.01 confirmed 831474226 Problem Episode of recurrent major depressive disorder, unspecified depression episode severity F33.9 confirmed 254480852 Problem Allergic rhinitis, unspecified seasonality, unspecified trigger J30.9 confirmed 18438006 Problem Major depressive disorder, recurrent severe without psychotic features F33.2 confirmed 09306975 Problem Leg paresthesia R20.2 confirmed 877129541 Problem Amenorrhea N91.2 confirmed 84681545 ALLERGIES Allergen (clinical drug ingredient) Drug/Non Drug Allergy documented on EMR Reaction Allergy Type Onset Date Status Rocephin hives Drug Allergy Active IV Contrast rash/reddened skin Non Drug Allergy Active tramadol Tramadol HCl([facility] Code:[address]-69 ) rash Drug Allergy Active ENCOUNTERS from 1996 to 2022-12-21 Encounter Location Date Provider Diagnosis [facility] [place] [address] [facility] [id number] [place] [address] Dec, JILLIAN Hopkins IMMUNIZATIONS Vaccine Route Administration Date Status gardasil-4 (history) Unknown June 19, 2006 Admin istered dtap (history) Unknown Oct 30, 2001 Administered hepatitis a (history) Unknown Mar 05, 2007 Admini stered hepatitis a (history) Unknown August 21, 2006 Admini stered tdap (history) Unknown June 02, 2018 Administere d tdap (history) Unknown October 03, 2016 Administered gardasil-4 (history) Unknown Mar 05, 2007 Adminis tered gardasil-4 (history) Unknown August 21, 2006 Adminis tered Hib 4 dose schedule Unknown 1996 Adminis tered PRIVATE FLULAVAL QUAD 0.5ML (6 MO AND UP) 2019 IM Intramuscular Jan 01, 2018 Administered PRIVATE FLULAVAL QUAD 0.5ML (6 MO AND UP) 2019 IM Intramuscular Dec 18, 2018 Administered hepatitis b pediatric (history) Unknown 1996 Administered hepatitis b pediatric (history) Unknown August 26 997 Administered hepatitis b pediatric (history) Unknown 1996 Administered DTaP-Hib Unknown 1996 Administered OPV Unknown July 28, 1997 Administered OPV Unknown 1996 Administered OPV Unknown 1996 Administered Hib 4 dose schedule Unknown July 28, 1997 Admini stered dtap (history) Unknown 1996 Administered dtap (history) Unknown Mar 03, 1997 Administered dtap (history) Unknown September 22, 1997 Administered comvax hib/hep b (history) Unknown Mar 03, 1997 A dministered mmr-II (history) Unknown July 28, 1997 Administe red mmr-II (history) Unknown Oct 30, 2001 Administere d polio ipv (history) Unknown Oct 30, 2001 Administ ered PRIVATE FLULAVAL QUAD 0.5ML (6 MO AND UP) 2020 IM Intramuscular Dec 21, 2020 Administered PRIVATE FLULAVAL QUAD 0.5ML (6 MO AND UP) 2019 IM Intramuscular Dec 30, 2019 Administered tdap (history) Unknown Feb 28, 2021 Administered SOCIAL HISTORY Sex Assigned At : [...] 30 days Nov, Active REASON FOR VISIT dental concerns MEDICAL (GENERAL) HISTORY Type Description Date Medical [...] NIX , 2023-01-21 05:20:00 PM, [address] [facility], [id number], [place], [address], Provider Name:AGUILA GAYLE, 2023-03-19 01:00:00 PM, [address] [facility], [id number], [place], [address], Insurance Providers Payer Name Payer Address Payer Phone Insured Name Patient Relationship to Insured Coverage Start Date Coverage End Date Subscriber Number Group Number [facility] [address] [facility] [address] [phone] Rosemary Zuniga Self - patient is the insured [id number] [facility] [address] [facility] [address] Rosemary Zuniga Self - patient is the insured [id number] [facility] [address] [facility] [address] [phone] Rosemary Zuniga Self - patient is the insured [id number] [address] [facility] [address] Rosemary Zuniga Self - patient is the insured [id number] NON [address] [facility] [address] Rosemary Zuniga Self - patient is the insured [id number]
--- OUTSIDE RECORDS SUMMARY | 2023-01-29 05:35 | XMS REPORT ---
Author Author [facility] ter of 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 confirmed 48495105 Problem Anxiety F41.9 confirmed 72870313 Problem Seasonal allergies J30.2 confirmed 668573875 Problem Complex 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 confirmed 728785190 Problem Missed period N92.6 confirmed 721704 00 Problem Fever R50.9 confirmed 997952658 Problem Pelvic congestion syndrome N94.89 confirmed 64661961 Problem Dysuria R30.0 confirmed 31968600 Problem Irregular periods N92.6 confirmed 51581196 Problem Vaginal bleeding N93.9 confirmed 035917251 Problem Mood disorder F39 confirmed 755269 05 Problem Seasonal allergic rhinitis due to pollen J30.1 confirmed 04486199 Problem Borderline personality disorder F60.3 confirmed 62565834 Problem Discharge from the vagina N89.8 confirmed 04050446 Problem Varicose veins of both lower extremities with pain I83.813 confirmed 03939466 Problem Abnormal uterine bleeding N93.9 confirmed 9254742893 9100 Problem Positive test Z32.01 confirmed 977941624 Problem Episode of recurrent major depressive disorder, unspecified depression episode severity F33.9 confirmed 369055410 Problem Allergic rhinitis, unspecified seasonality, unspecified trigger J30.9 confirmed 55691407 Problem Major depressive disorder, recurrent severe without psychotic features F33.2 confirmed 51327085 Problem Leg paresthesia R20.2 confirmed 490274388 Problem Amenorrhea N91.2 confirmed 91298034 ALLERGIES Allergen (clinical drug ingredient) Drug/Non Drug Allergy documented on EMR Reaction Allergy Type Onset Date Status Rocephin hives Drug Allergy Active IV Contrast rash/reddened skin Non Drug Allergy Active tramadol Tramadol HCl([facility] Code:[address]-14 ) rash Drug Allergy Active ENCOUNTERS from 1996 to 2022-11-18 Encounter Location Date Provider Diagnosis [facility] [address] [facility] [id number] [place] [address] Nov, SHENGNICOLAS LeivaRAJINDER Major depressive disorder, recurrent severe without psychotic features F33.2 ; Anxiety F41.9 and Borderline personality disorder F60.3 IMMUNIZATIONS Vaccine Route Administration Date Status OPV Unknown 1996 Administered OPV Unknown 1996 Administered Hib 4 dose schedule Unknown July 28, 1997 Admini stered Hib 4 dose schedule Unknown 1996 Adminis tered hepatitis b pediatric (history) Unknown August 26 99 Administered hepatitis b pediatric (history) Unknown 1996 Administered DTaP-Hib Unknown 1996 Administered OPV Unknown July 28, 1997 Administered hepatitis a (history) Unknown August 21, 2006 Admini stered PRIVATE FLULAVAL QUAD 0.5ML (6 MO AND UP) 2020 IM Intramuscular Dec 21, 2020 Administered PRIVATE FLULAVAL QUAD 0.5ML (6 MO AND UP) 2019 IM Intramuscular Dec 30, 2019 Administered gardasil-4 (history) Unknown June 19, 2006 [...] 2018 IM Intramuscular Jan 01, 2018 Administered hepatitis a (history) Unknown Mar 05, 2007 Admini stered tdap (history) Unknown October 03, 2016 Administered tdap (history) Unknown June 02, 2018 Administere d tdap (history) Unknown Feb 28, 2021 Administered polio ipv (history) Unknown Oct 30, 2001 Administ ered gardasil-4 (history) Unknown August 21, 2006 Adminis tered gardasil-4 (history) Unknown Mar 05, 2007 Adminis tered comvax hib/hep b (history) Unknown Mar 03, 1997 A dministered mmr-II (history) Unknown Oct 30, 2001 Administere d mmr-II (history) Unknown July 28, 1997 Administe red hepatitis b pediatric (history) Unknown 1996 Administered SOCIAL HISTORY Sex Assigned At : [...] Once a day Active REASON FOR VISIT Crisis intevention. MEDICAL (GENERAL) HISTORY Type Description Date Medical [...] Assessment Notes Treatment Notes Treatment Clinical Notes Nov, Anxiety (ICD-10 - F41.9) Nov, Major depressive disorder, recurrent severe without psychotic features (ICD-10 - F33.2) Nov, Borderline personality disorder (ICD-10 - F60.3) PLAN OF TREATMENT Next Appt Details She has psychotherapy appt. scheduled for next week Reason:anxiety and depressio Provider Name:MERISSA NIX , 2023-01-21 05:20:00 PM, [address] [facility], [id number], [place], [address], Provider Name:STEPHY Rose, 2023-03-19 01:00:00 PM, [address] [facility], [id number], [place], [address], Follow Up:She has psychotherapy appt. scheduled for next weekanxiety and depressio Insurance Providers Payer Name Payer Address Payer Phone Insured Name Patient Relationship to Insured Coverage Start Date Coverage End Date Subscriber Number Group Number NON FORMERLY [facility] 19 [facility] [address] [facility] [address] [phone] Rosemary Zuniga Self - patient is the insured [id number] [address] [facility] [address] [phone] Rosemary Zuniga Self - patient is the insured [id number] [facility] 19 [address] [facility] [phone] Rosemary Zuniga Self - patient is the insured [id number] [facility] 19 [address] [facility] [phone] Rosemary Zuniga Self - patient is the insured [id number] [facility] 19 [address] [facility] [address] Rosemary Zuniga Self - patient is the insured [id number]
--- OUTSIDE RECORDS SUMMARY | 2023-01-29 05:35 | XMS REPORT ---
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 confirmed 67190378 Problem Anxiety F41.9 confirmed 81936986 Problem Seasonal allergies J30.2 confirmed 708695150 Problem Complex 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 confirmed 456515635 Problem Missed period N92.6 confirmed 700648 00 Problem Fever R50.9 confirmed 144176126 Problem Pelvic congestion syndrome N94.89 confirmed 32816309 Problem Dysuria R30.0 confirmed 88743023 Problem Irregular periods N92.6 confirmed 67303702 Problem Vaginal bleeding N93.9 confirmed 168840557 Problem Mood disorder F39 confirmed 190704 05 Problem Seasonal allergic rhinitis due to pollen J30.1 confirmed 32508493 Problem Borderline personality disorder F60.3 confirmed 97032680 Problem Discharge from the vagina N89.8 confirmed 54940912 Problem Varicose veins of both lower extremities with pain I83.813 confirmed 18552153 Problem Abnormal uterine bleeding N93.9 confirmed 3606677465 9100 Problem Positive test Z32.01 confirmed 349107864 Problem Episode of recurrent major depressive disorder, unspecified depression episode severity F33.9 confirmed 012417832 Problem Allergic rhinitis, unspecified seasonality, unspecified trigger J30.9 confirmed 65622254 Problem Major depressive disorder, recurrent severe without psychotic features F33.2 confirmed 12233154 Problem Leg paresthesia R20.2 confirmed 684362950 Problem Amenorrhea N91.2 confirmed 21024339 ALLERGIES Allergen (clinical drug ingredient) Drug/Non Drug Allergy documented on EMR Reaction Allergy Type Onset Date Status Rocephin hives Drug Allergy Active IV Contrast rash/reddened skin Non Drug Allergy Active tramadol Tramadol HCl([facility] Code:[address]-49 ) rash Drug Allergy Active ENCOUNTERS from 1996 to 2022-11-21 Encounter Location Date Provider Diagnosis [facility] [address] [facility] [id number] [place] [address] Nov, BARRETT Redman IMMUNIZATIONS Vaccine Route Administration Date [...] Once a day Active REASON FOR VISIT Requests return call [...] NIX , 2023-01-21 05:20:00 PM, [address] [facility], [id number], [place], [address], Provider Name:STEPHY Rose, 2023-03-19 01:00:00 PM, [address] [facility], [id number], [place], [address], Insurance Providers Payer Name Payer Address Payer Phone Insured Name Patient Relationship to Insured Coverage Start Date Coverage End Date Subscriber Number Group Number NON [address] [facility] [address] Rosemary Zuniga Self - patient is the insured [id number] [facility] 19 [address] [facility] [address] Rosemary Zuniga Self - patient is the insured [id number] [facility] 19 [address] [facility] [address] Rosemary Zuniga Self - patient is the insured [id number] [address] [facility] [address] Rosemary Zuniga Self - patient is the insured [id number] [address] [facility] [address] Rosemary Zuniga Self - patient is the insured [id number]
--- OUTSIDE RECORDS SUMMARY | 2023-01-29 05:35 | XMS REPORT ---
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 confirmed 19513991 Problem Anxiety F41.9 confirmed 50748756 Problem Seasonal allergies J30.2 confirmed 066298041 Problem Complex 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 confirmed 240957183 Problem Missed period N92.6 confirmed 875771 00 Problem Fever R50.9 confirmed 823390903 Problem Pelvic congestion syndrome N94.89 confirmed 68229818 Problem Dysuria R30.0 confirmed 32779934 Problem Irregular periods N92.6 confirmed 48803156 Problem Vaginal bleeding N93.9 confirmed 174401536 Problem Mood disorder F39 confirmed 365046 05 Problem Seasonal allergic rhinitis due to pollen J30.1 confirmed 73560964 Problem Borderline personality disorder F60.3 confirmed 20576443 Problem Discharge from the vagina N89.8 confirmed 61238804 Problem Varicose veins of both lower extremities with pain I83.813 confirmed 98387438 Problem Abnormal uterine bleeding N93.9 confirmed 9124416002 9100 Problem Positive test Z32.01 confirmed 999051574 Problem Episode of recurrent major depressive disorder, unspecified depression episode severity F33.9 confirmed 276244380 Problem Allergic rhinitis, unspecified seasonality, unspecified trigger J30.9 confirmed 75151158 Problem Major depressive disorder, recurrent severe without psychotic features F33.2 confirmed 19121923 Problem Leg paresthesia R20.2 confirmed 981610350 Problem Amenorrhea N91.2 confirmed 41080272 ALLERGIES Allergen (clinical drug ingredient) Drug/Non Drug Allergy documented on EMR Reaction Allergy Type Onset Date Status Rocephin hives Drug Allergy Active IV Contrast rash/reddened skin Non Drug Allergy Active tramadol Tramadol HCl([facility] Code:[address]-15 ) rash Drug Allergy Active ENCOUNTERS from 1996 to 2023-01-20 Encounter Location Date Provider Diagnosis [facility] [address] [facility] [id number] [place] [address] 15 Dec, 2020 CINDY TANG Severe episode of recurrent major depressive disorder, without psychotic features F33.2 IMMUNIZATIONS Vaccine Route Administration Date Status DTaP-Hib Unknown 1996 Administered OPV Unknown July 28, 1997 Administered OPV Unknown 1996 Administered OPV Unknown 1996 Administered mmr-II (history) Unknown July 28, 1997 Administe red hepatitis b pediatric (history) Unknown 1996 Administered hepatitis b pediatric (history) Unknown August 26 997 Administered hepatitis b pediatric (history) Unknown 1996 Administered hepatitis a (history) Unknown August 21, 2006 Admini stered Hib 4 dose schedule Unknown July 28, 1997 Admini stered Hib 4 dose schedule Unknown 1996 Adminis tered tdap (history) Unknown June 02, 2018 Administere d tdap (history) Unknown October 03, 2016 Administered gardasil-4 (history) Unknown Mar 05, 2007 Adminis tered gardasil-4 (history) Unknown August 21, 2006 Adminis tered gardasil-4 (history) Unknown June 19, 2006 Admin istered dtap (history) Unknown Oct 30, 2001 Administered PRIVATE FLULAVAL QUAD 0.5ML (6 MO AND UP) 2019 IM Intramuscular Dec 18, 2018 Administered hepatitis a (history) Unknown Mar 05, 2007 Admini stered PRIVATE FLULAVAL QUAD 0.5ML (6 MO AND UP) 2019 IM Intramuscular Jan 01, 2018 Administered PRIVATE FLU 23-24 (FLULAVAL) 6MO & UP IM Intramuscular Dec 24, 2022 Administered comvax hib/hep b (history) Unknown Mar 03, 1997 A dministered dtap (history) Unknown September 22, 1997 Administered dtap (history) Unknown Mar 03, 1997 Administered tdap (history) Unknown Feb 28, 2021 Administered PRIVATE FLULAVAL QUAD 0.5ML (6 MO AND UP) 2019 IM Intramuscular Dec 30, 2019 Administered PRIVATE FLULAVAL QUAD 0.5ML (6 MO AND UP) 2020 IM Intramuscular Dec 21, 2020 Administered dtap (history) Unknown 1996 Administered polio ipv (history) Unknown Oct 30, 2001 Administ arad mmr-II (history) Unknown Oct 30, 2001 Administere d SOCIAL HISTORY Sex Assigned At : Social [...] Next Appt Details prn Reason:Check In Provider Name:MERISSA NIX , 2023-01-21 05:20:00 PM, [address] [facility], [id number], [place], [address], Provider Name:AGUILA GAYLE, 2023-03-19 01:00:00 PM, [address] [facility], [id number], [place], [address], Follow Up:prnCheck In Insurance Providers Payer Name Payer Address Payer Phone Insured Name Patient Relationship to Insured Coverage Start Date Coverage End Date Subscriber Number Group Number [facility] 19 [facility] [address] [facility] [address] Rosemary Zuniga Self - patient is the insured [id number] [facility] 19 [address] [facility] [address] Rosemary Zuniga Self - patient is the insured [id number] NON [employer] [facility] 19 [address] [facility] [address] Rosemary Zuniga Self - patient is the insured [id number] NON [employer] [address] [facility] [address] [phone] Rosemary Zuniga Self - patient is the insured [id number] [address] [facility] [address] [phone] Rosemary Zuniga Self - patient is the insured [id number]
--- OUTSIDE RECORDS SUMMARY | 2023-01-29 05:35 | XMS REPORT ---
Author Author [facility] ter of [facility] ter of [facility] Address Unknown Phone Unavailable Care Team Providers Care Airborne Operations Superintendent Name Role Phone CINDY TANG Unavailable PROBLEMS Type Condition ICD9-CM Code SLD83-WX Code Onset Dates Condition Status W/U Status Risk SNOMED Code Notes Problem Severe episode of recurrent major depressive disorder, without psychotic features F33.2 confirmed 38943706 Problem Acute stress reaction with predominately emotional disturbance F43.9 confirmed 38582637 Problem 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 confirmed 86413715 Problem Anxiety F41.9 confirmed 76112561 Problem Seasonal allergies J30.2 confirmed 517720366 Problem Complex 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 confirmed 156401335 Problem Missed period N92.6 confirmed 858845 00 Problem Fever R50.9 confirmed 775355097 Problem Pelvic congestion syndrome N94.89 confirmed 27834483 Problem Dysuria R30.0 confirmed 79545715 Problem Irregular periods N92.6 confirmed 69470678 Problem Vaginal bleeding N93.9 confirmed 748081843 Problem Mood disorder F39 confirmed 558244 05 Problem Seasonal allergic rhinitis due to pollen J30.1 confirmed 89743509 Problem Borderline personality disorder F60.3 confirmed 87889460 Problem Discharge from the vagina N89.8 confirmed 63617124 Problem Varicose veins of both lower extremities with pain I83.813 confirmed 99836955 Problem Abnormal uterine bleeding N93.9 confirmed 5664088054 9100 Problem Positive test Z32.01 confirmed 607680317 Problem Episode of recurrent major depressive disorder, unspecified depression episode severity F33.9 confirmed 353740316 Problem Allergic rhinitis, unspecified seasonality, unspecified trigger J30.9 confirmed 46512443 Problem Major depressive disorder, recurrent severe without psychotic features F33.2 confirmed 88304647 Problem Leg paresthesia R20.2 confirmed 667149493 Problem Amenorrhea N91.2 confirmed 92997847 ALLERGIES Allergen (clinical drug ingredient) Drug/Non Drug Allergy documented on EMR Reaction Allergy Type Onset Date Status Rocephin hives Drug Allergy Active IV Contrast rash/reddened skin Non Drug Allergy Active tramadol Tramadol HCl([facility] Code:[address]-17 ) rash Drug Allergy Active ENCOUNTERS from 1996 to 2022-12-22 Encounter Location Date Provider Diagnosis [facility] [address] [facility] [id number] [place] [address] 04 Dec, 2020 CINDY TANG Severe episode of [...] Unknown August 21, 2006 Admini stered hepatitis a (history) Unknown Mar 05, 2007 Admini amberd mmr-II (history) Unknown July 28, 1997 Adminloulou [...] Next Appt Details prn Reason:Check In Provider Name:EMRISSA NIX , 2023-01-21 05:20:00 PM, [address] [facility], [id number], [place], [address], Provider Name:AGUILA GAYLE, 2023-03-19 01:00:00 PM, [address] [facility], [id number], [place], [address], Follow Up:prnCheck In Insurance Providers Payer Name Payer Address Payer Phone Insured Name Patient Relationship to Insured Coverage Start Date Coverage End Date Subscriber Number Group Number [facility] 19 [address] [facility] [address] Rosemary Zuniga Self - patient is the insured [id number] [facility] 19 [address] [facility] [address] [phone] Rosemary Zuniga Self - patient is the insured [id number] NON [employer] [address] [facility] [address] [phone] Rosemary Zuniga Self - patient is the insured [id number] NON FQHC [facility] 19 [address] [facility] [address] Rosemary Zuniga Self - patient is the insured [id number] [address] [facility] [address] [phone] Rosemary Zuniga Self - patient is the insured [id number]
--- OUTSIDE RECORDS SUMMARY | 2023-01-29 05:35 | XMS REPORT ---
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 confirmed 27300584 Problem Anxiety F41.9 confirmed 87284125 Problem Seasonal allergies J30.2 confirmed 550425792 Problem Complex 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 confirmed 183484756 Problem Missed period N92.6 confirmed 436720 00 Problem Fever R50.9 confirmed 623710321 Problem Pelvic congestion syndrome N94.89 confirmed 44956371 Problem Dysuria R30.0 confirmed 70878325 Problem Irregular periods N92.6 confirmed 38128546 Problem Vaginal bleeding N93.9 confirmed 760947433 Problem Mood disorder F39 confirmed 833423 05 Problem Seasonal allergic rhinitis due to pollen J30.1 confirmed 98106615 Problem Borderline personality disorder F60.3 confirmed 84808984 Problem Discharge from the vagina N89.8 confirmed 57645554 Problem Varicose veins of both lower extremities with pain I83.813 confirmed 98998815 Problem Abnormal uterine bleeding N93.9 confirmed 2204040607 9100 Problem Positive test Z32.01 confirmed 727594385 Problem Episode of recurrent major depressive disorder, unspecified depression episode severity F33.9 confirmed 826483773 Problem Allergic rhinitis, unspecified seasonality, unspecified trigger J30.9 confirmed 74499895 Problem Major depressive disorder, recurrent severe without psychotic features F33.2 confirmed 69585794 Problem Leg paresthesia R20.2 confirmed 684785390 Problem Amenorrhea N91.2 confirmed 89240157 ALLERGIES Allergen (clinical drug ingredient) Drug/Non Drug Allergy documented on EMR Reaction Allergy Type Onset Date Status Rocephin hives Drug Allergy Active IV Contrast rash/reddened skin Non Drug Allergy Active tramadol Tramadol HCl([facility] Code:[address]-23 ) rash Drug Allergy Active ENCOUNTERS from 1996 to 2022-11-07 Encounter Location Date Provider Diagnosis [facility] [address] [facility] [id number] [place] [address] 26 Oct, 2020 CINDY TANG Severe episode of recurrent [...] Once a day Unknown REASON FOR VISIT [facility] Services MEDICAL (GENERAL) [...] features (ICD-10 - F33.2) PLAN OF TREATMENT Next Appt Details 2 - 3 Days Reason:Resource A ssistance Provider Name:MERISSA NIX , 2023-01-21 05:20:00 PM, [address] [facility], [id number], [place], [address], Provider Name:STEPHY Rose 2023-03-19 01:00:00 PM, [address] [facility], [id number], [place], [address], Follow Up:2 - 3 DaysResource Assistance Insurance Providers Payer Name Payer Address Payer Phone Insured Name Patient Relationship to Insured Coverage Start Date Coverage End Date Subscriber Number Group Number MELISSA SC[employer] [id number] [facility] [address] [employer] [facility] [address] Rosemary Zuniga Self - patient is the insured [id number] [facility] 19 [address] [facility] [address] [phone] Rosemary Zuniga Self - patient is the insured [id number] [facility] 19 [address] [facility] [address] [phone] Rosemary Zuniga Self - patient is the insured [id number] NON FQHC [facility] 19 [address] [facility] [address] Rosemary Zuniga Self - patient is the insured [id number] NON FQHC [address] [facility] [address] Rosemary Zuniga Self - patient is the insured [id number]
--- OUTSIDE RECORDS SUMMARY | 2023-01-29 05:35 | XMS REPORT ---
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 confirmed 86337720 Problem Anxiety F41.9 confirmed 00768072 Problem Seasonal allergies J30.2 confirmed 125491441 Problem Complex 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 confirmed 912902990 Problem Missed period N92.6 confirmed 586064 00 Problem Fever R50.9 confirmed 125588304 Problem Pelvic congestion syndrome N94.89 confirmed 86040098 Problem Dysuria R30.0 confirmed 23555044 Problem Irregular periods N92.6 confirmed 95432681 Problem Vaginal bleeding N93.9 confirmed 183547524 Problem Mood disorder F39 confirmed 885432 05 Problem Seasonal allergic rhinitis due to pollen J30.1 confirmed 07705462 Problem Borderline personality disorder F60.3 confirmed 54027732 Problem Discharge from the vagina N89.8 confirmed 38132607 Problem Varicose veins of both lower extremities with pain I83.813 confirmed 74503455 Problem Abnormal uterine bleeding N93.9 confirmed 5918720926 9100 Problem Positive test Z32.01 confirmed 896802859 Problem Episode of recurrent major depressive disorder, unspecified depression episode severity F33.9 confirmed 940919429 Problem Allergic rhinitis, unspecified seasonality, unspecified trigger J30.9 confirmed 84891601 Problem Major depressive disorder, recurrent severe without psychotic features F33.2 confirmed 57844254 Problem Leg paresthesia R20.2 confirmed 133640814 Problem Amenorrhea N91.2 confirmed 09850088 ALLERGIES Allergen (clinical drug ingredient) Drug/Non Drug Allergy documented on EMR Reaction Allergy Type Onset Date Status Rocephin hives Drug Allergy Active IV Contrast rash/reddened skin Non Drug Allergy Active tramadol Tramadol HCl([facility] Code:[address]-73 ) rash Drug Allergy Active ENCOUNTERS from 1996 to 2022-12-21 Encounter Location Date Provider Diagnosis [facility] [address] [facility] [id number] [place] [address] 28 Nov, 2020 CINDY TANG Severe episode of recurrent [...] Notes Treatment Notes Treatment Clinical Notes Nov, Severe episode of recurrent major depressive disorder, without psychotic features (ICD-10 - F33.2) PLAN OF TREATMENT Medication Medication Name Sig Start Date Stop Date Ferrous Sulfate 325 (65 Fe) MG 1 tablet Orally Three times a Week for 30 days Nov, Next Appt Details 2 - 3 Days Reason:Transporta tion Assistance Provider Name:MERISSA NIX , 2023-01-21 05:20:00 PM, [address] [facility], [id number], [place], [address], Provider Name:AGUILA GAYLE, 2023-03-19 01:00:00 PM, [address] [facility], [id number], [place], [address], Follow Up:2 - 3 DaysTransportation Assistance Insurance Providers Payer Name Payer Address Payer Phone Insured Name Patient Relationship to Insured Coverage Start Date Coverage End Date Subscriber Number Group Number [place] [address] [address] [facility] [address] Rosemary Zuniga Self - patient is the insured [id number] NON [address] [employer] [facility] [address] Rosemary Zuniga Self - patient is the insured [id number] [facility] 19 [address] [facility] [address] Rosemary Zuniga Self - patient is the insured [id number] [facility] 19 [address] [facility] [address] Rosemary Zuniga Self - patient is the insured [id number] [facility] 19 [facility] [address] [employer] [facility] [address] Rosemary Zuniga Self - patient is the insured [id number]
--- OUTSIDE RECORDS SUMMARY | 2023-01-29 05:35 | XMS REPORT ---
Author Author [facility] ter of [facility] ter of [facility] Address Unknown Phone Unavailable Care Team Providers Care Business Asst Name Role Phone CINDY TANG Unavailable [phone] PROBLEMS Type Condition ICD9-CM Code LHN30-TQ Code Onset Dates Condition Status W/U Status Risk SNOMED Code Notes Problem Severe episode of recurrent major depressive disorder, without psychotic features F33.2 confirmed 33890794 Problem Acute stress reaction with predominately emotional disturbance F43.9 confirmed 64129575 Problem 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 confirmed 27587273 Problem Anxiety F41.9 confirmed 80486331 Problem Seasonal allergies J30.2 confirmed 567260048 Problem Complex 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 confirmed 463992408 Problem Missed period N92.6 confirmed 970088 00 Problem Fever R50.9 confirmed 511814012 Problem Pelvic congestion syndrome N94.89 confirmed 85665772 Problem Dysuria R30.0 confirmed 77736730 Problem Irregular periods N92.6 confirmed 90390684 Problem Vaginal bleeding N93.9 confirmed 058423514 Problem Mood disorder F39 confirmed 103483 05 Problem Seasonal allergic rhinitis due to pollen J30.1 confirmed 00209712 Problem Borderline personality disorder F60.3 confirmed 37380459 Problem Discharge from the vagina N89.8 confirmed 24683302 Problem Varicose veins of both lower extremities with pain I83.813 confirmed 48413604 Problem Abnormal uterine bleeding N93.9 confirmed 0774510327 9100 Problem Positive test Z32.01 confirmed 060178327 Problem Episode of recurrent major depressive disorder, unspecified depression episode severity F33.9 confirmed 706111391 Problem Allergic rhinitis, unspecified seasonality, unspecified trigger J30.9 confirmed 42506783 Problem Major depressive disorder, recurrent severe without psychotic features F33.2 confirmed 32472030 Problem Leg paresthesia R20.2 confirmed 866209821 Problem Amenorrhea N91.2 confirmed 41991618 ALLERGIES Allergen (clinical drug ingredient) Drug/Non Drug Allergy documented on EMR Reaction Allergy Type Onset Date Status Rocephin hives Drug Allergy Active IV Contrast rash/reddened skin Non Drug Allergy Active tramadol Tramadol HCl([facility] Code:[address]-72 ) rash Drug Allergy Active ENCOUNTERS from 1996 to 2022-11-25 Encounter Location Date Provider Diagnosis [facility] [address] [facility] [id number] [place] [address] Nov, CINDY TANG Severe episode of recurrent major [...] Once a day Active REASON FOR VISIT OCK Services MEDICAL [...] F33.2) PLAN OF TREATMENT Next Appt Details prn Reason:Check In Provider Name:MERISSA NIX , 2023-01-21 05:20:00 PM, [address] [facility], [id number], [place], [address], Provider Name:STEPHY Rose, 2023-03-19 01:00:00 PM, [address] [facility], [id number], [place], [address], Follow Up:prnCheck In Insurance Providers Payer Name Payer Address Payer Phone Insured Name Patient Relationship to Insured Coverage Start Date Coverage End Date Subscriber Number Group Number NON [facility] 19 [address] [facility] [address] Rosemary Zuniga Self - patient is the insured [id number] [facility] 19 [facility] [address] [employer] [facility]ENT[facility] [address] Rosemary Zuniga Self - patient is the insured [id number] [facility] 19 [address] [facility] [address] Rosemary Zuniga Self - patient is the insured [id number] [place] [address] [address] [facility] [address] Rosemary Zuniga Self - patient is the insured [id number] [address] [facility] [address] Rosemary Zuniga Self - patient is the insured [id number]
--- OUTSIDE RECORDS SUMMARY | 2023-01-29 05:35 | XMS REPORT ---
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 confirmed 37135060 Problem Anxiety F41.9 confirmed 08542415 Problem Seasonal allergies J30.2 confirmed 028436410 Problem Complex 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 confirmed 144951622 Problem Missed period N92.6 confirmed 139728 00 Problem Fever R50.9 confirmed 447531582 Problem Pelvic congestion syndrome N94.89 confirmed 54198742 Problem Dysuria R30.0 confirmed 79381566 Problem Irregular periods N92.6 confirmed 73984318 Problem Vaginal bleeding N93.9 confirmed 419036160 Problem Mood disorder F39 confirmed 802838 05 Problem Seasonal allergic rhinitis due to pollen J30.1 confirmed 92856328 Problem Borderline personality disorder F60.3 confirmed 63123531 Problem Discharge from the vagina N89.8 confirmed 54816321 Problem Varicose veins of both lower extremities with pain I83.813 confirmed 06736935 Problem Abnormal uterine bleeding N93.9 confirmed 3607287185 9100 Problem Positive test Z32.01 confirmed 637162748 Problem Episode of recurrent major depressive disorder, unspecified depression episode severity F33.9 confirmed 686373977 Problem Allergic rhinitis, unspecified seasonality, unspecified trigger J30.9 confirmed 71689865 Problem Major depressive disorder, recurrent severe without psychotic features F33.2 confirmed 81732815 Problem Leg paresthesia R20.2 confirmed 237568248 Problem Amenorrhea N91.2 confirmed 26377157 ALLERGIES Allergen (clinical drug ingredient) Drug/Non Drug Allergy documented on EMR Reaction Allergy Type Onset Date Status Rocephin hives Drug Allergy Active IV Contrast rash/reddened skin Non Drug Allergy Active tramadol Tramadol HCl([facility] Code:[address]-31 ) rash Drug Allergy Active ENCOUNTERS from 1996 to 2022-12-22 Encounter Location Date Provider Diagnosis [facility] [address] [facility] [id number] [place] [address] 29 Nov, 2020 CINDY TANG Severe episode of [...] NIX , 2023-01-21 05:20:00 PM, [address] [facility], [id number], [place], [address], Provider Name:AGUILA GAYLE, 2023-03-19 01:00:00 PM, [address] [facility], [id number], [place], [address], Follow Up:prnCheck In Insurance Providers Payer Name Payer Address Payer Phone Insured Name Patient Relationship to Insured Coverage Start Date Coverage End Date Subscriber Number Group Number NON [address] [facility] [address] Rosemary Zuniga Self - patient is the insured [id number] [address] [employer] [facility] [address] Rosemary Zuniga Self - patient is the insured [id number] [facility] 19 [address] [facility] [address] [phone] Rosemary Zuniga Self - patient is the insured [id number] [facility] 19 [address] [facility] [address] [phone] Rosemary Zuniga Self - patient is the insured [id number] [facility] 19 [address] [facility] [address] Rosemary Zuniga Self - patient is the insured [id number]
--- OUTSIDE RECORDS SUMMARY | 2023-01-29 05:35 | XMS REPORT ---
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 confirmed 23685280 Problem Anxiety F41.9 confirmed 05346684 Problem Seasonal allergies J30.2 confirmed 285228557 Problem Complex 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 confirmed 692206529 Problem Missed period N92.6 confirmed 894263 00 Problem Fever R50.9 confirmed 944198753 Problem Pelvic congestion syndrome N94.89 confirmed 86402032 Problem Dysuria R30.0 confirmed 07702699 Problem Irregular periods N92.6 confirmed 89777490 Problem Vaginal bleeding N93.9 confirmed 782542936 Problem Mood disorder F39 confirmed 409387 05 Problem Seasonal allergic rhinitis due to pollen J30.1 confirmed 96395856 Problem Borderline personality disorder F60.3 confirmed 48075643 Problem Discharge from the vagina N89.8 confirmed 90227942 Problem Varicose veins of both lower extremities with pain I83.813 confirmed 07094124 Problem Abnormal uterine bleeding N93.9 confirmed 9323154292 9100 Problem Positive test Z32.01 confirmed 878181633 Problem Episode of recurrent major depressive disorder, unspecified depression episode severity F33.9 confirmed 263755063 Problem Allergic rhinitis, unspecified seasonality, unspecified trigger J30.9 confirmed 34801995 Problem Major depressive disorder, recurrent severe without psychotic features F33.2 confirmed 54676957 Problem Leg paresthesia R20.2 confirmed 940716440 Problem Amenorrhea N91.2 confirmed 12830180 ALLERGIES Allergen (clinical drug ingredient) Drug/Non Drug Allergy documented on EMR Reaction Allergy Type Onset Date Status Rocephin hives Drug Allergy Active IV Contrast rash/reddened skin Non Drug Allergy Active tramadol Tramadol HCl([facility] Code:[address]-88 ) rash Drug Allergy Active ENCOUNTERS from 1996 to 2022-11-16 Encounter Location Date Provider Diagnosis [facility] [address] [facility] [id number] [place] [address] Nov, LAXMI KHAN Sore throat J02.9 IMMUNIZATIONS Vaccine Route Administration Date Status OPV [...] 2018 IM Intramuscular Dec 18, 2018 Administered Hib 4 dose schedule Unknown 1996 Adminis tered PRIVATE FLULAVAL QUAD 0.5ML (6 MO AND UP) 2018 IM Intramuscular Jan 01, 2018 Administered dtap (history) Unknown Oct 30, 2001 Administered gardasil-4 (history) Unknown June 19, 2006 Admin istered gardasil-4 (history) Unknown August 21, 2006 Adminis tered gardasil-4 (history) Unknown Mar 05, 2007 Adminis tered tdap (history) Unknown October 03, 2016 Administered tdap (history) Unknown June 02, 2018 Administere d tdap (history) Unknown Feb 28, 2021 Administered PRIVATE FLULAVAL QUAD 0.5ML (6 MO AND UP) 2020 IM Intramuscular Dec 21, 2020 Administered comvax hib/hep b (history) Unknown Mar 03, 1997 A dministered dtap (history) Unknown September 22, 1997 Administered dtap (history) Unknown Mar 03, 1997 Administered dtap (history) Unknown 1996 Administered hepatitis a (history) Unknown Mar 05, 2007 Admini christiane hepatitis a (history) Unknown August 21, 2006 Admini christiane PRIVATE FLULAVAL QUAD 0.5ML (6 MO AND UP) 2019 IM Intramuscular Dec 30, 2019 Administered polio ipv (history) Unknown Oct 30, [...] other tobacco user? No REASON FOR REFERRAL from 1996 to 2022-11-16 Reason chronic sore throat and tonsil stones Diagnosis 1 Sore throat (J02.9) Referral Organization [facility] Referring Provider First Name LAXMI Referring Provider Last Name BILL Referring Provider Specialty Nurse Pract guillaumeionelouie Referred Provider Javon Neal Referred Provider Specialty Otolaryngolo gy Referral Priority Routine Referral Appointment Date 2021-01-23 General Notes Janneth Uriarte 12/06/2020 9:23:34 AM >referral faxed Janneth Uriarte 12/06/2020 1:35:47 PM >appt 01/23/2021 @ 8:20 am in [place] with Aysha Kwok patient notified appt letter mailed per her request Janneth Uriarte 03/23/2021 9:23:13 AM >records requested VITAL SIGNS Height 64 in Nov, Height-cm 162.56 cm Nov, Weight 133 lbs Nov, Weight-kg 60.33 kg Nov, Temperature 99.1 degrees Fahrenheit Nov, Heart Rate 92 bpm Nov, Respiratory Rate 18 bpm Nov, Oximetry 98 % Nov, BMI 22.83 kg/m2 Nov, Blood pressure systolic 122 mmHg Nov, Blood pressure diastolic 58 mmHg Nov, MEDICATIONS Medication SIG (Take, Route, Fr equency, Duration) Notes Start Date End Date Status ZyrTEC 10 MG 1 tablet Active 27-1 MG 1 tablet Orally Once a day Active REASON FOR VISIT Sore throat/glands x 1 day. Pt states she had a tonsil stone a couple months ago. denies fever, chills, N/V KWADINO, RMA MEDICAL (GENERAL) HISTORY Type Description Date Medical [...] Notes Treatment Notes Treatment Clinical Notes Nov, Sore throat (ICD-10 - J02.9) Nov, Other Pain control wi th tylenol or motrin. Medications as advised/prescribed. Rest as able. Push fluids to maintain hydration. Supportive care and monitoring. Office visit if not improving or if symptoms worsen. STREP POSTIVIE : discussed diagnosis and treatment encouraged good hand washing, avoid sharing drinks, purchase a new tooth brush after being on the medication for least 2-3 days, may return to school after being on the medication for at elast 24 hours and fever free. PLAN OF TREATMENT Referrals Referral Date Details 2021-01-23 2021-01-23, chronic sore throat and tonsil stones, Javon Neal Next Appt Details if not improving with pcp o r regular follow up Reason: Provider Name:MERISSA NIX , 2023-01-21 05:20:00 PM, [address] [facility], [id number], [place], [address], Provider Name:STEPHY Rose 2023-03-19 01:00:00 PM, [address] [facility], [id number], [place], [address], Insurance Providers Payer Name Payer Address Payer Phone Insured Name Patient Relationship to Insured Coverage Start Date Coverage End Date Subscriber Number Group Number NON [address] [facility] [id number] Rosemary Zuniga Self - patient is the insured [id number] [facility] [address] [facility] [address] [phone] Rosemary Zuniga Self - patient is the insured [id number] [facility] [address] [facility] [address] Rosemary Zuniga Self - patient is the insured [id number] [facility] [address] [facility] [address] [phone] Rosemary Zuniga Self - patient is the insured [id number] [address] [facility] [address] [phone] Rosemary Zuniga Self - patient is the insured [id number]
--- OUTSIDE RECORDS SUMMARY | 2023-01-29 05:35 | XMS REPORT ---
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 confirmed 80150197 Problem Anxiety F41.9 confirmed 52104374 Problem Seasonal allergies J30.2 confirmed 642811498 Problem Complex 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 confirmed 614314737 Problem Missed period N92.6 confirmed 647264 00 Problem Fever R50.9 confirmed 059650965 Problem Pelvic congestion syndrome N94.89 confirmed 42737220 Problem Dysuria R30.0 confirmed 28652767 Problem Irregular periods N92.6 confirmed 91967314 Problem Vaginal bleeding N93.9 confirmed 018224106 Problem Mood disorder F39 confirmed 014527 05 Problem Seasonal allergic rhinitis due to pollen J30.1 confirmed 50091926 Problem Borderline personality disorder F60.3 confirmed 46583677 Problem Discharge from the vagina N89.8 confirmed 56912785 Problem Varicose veins of both lower extremities with pain I83.813 confirmed 10140448 Problem Abnormal uterine bleeding N93.9 confirmed 7266419903 9100 Problem Positive test Z32.01 confirmed 347563414 Problem Episode of recurrent major depressive disorder, unspecified depression episode severity F33.9 confirmed 942255595 Problem Allergic rhinitis, unspecified seasonality, unspecified trigger J30.9 confirmed 51975390 Problem Major depressive disorder, recurrent severe without psychotic features F33.2 confirmed 73624992 Problem Leg paresthesia R20.2 confirmed 403103401 Problem Amenorrhea N91.2 confirmed 19845940 ALLERGIES Allergen (clinical drug ingredient) Drug/Non Drug Allergy documented on EMR Reaction Allergy Type Onset Date Status Rocephin hives Drug Allergy Active IV Contrast rash/reddened skin Non Drug Allergy Active tramadol Tramadol HCl([facility] Code:[address]-31 ) rash Drug Allergy Active ENCOUNTERS from 1996 to 2022-11-03 Encounter Location Date Provider Diagnosis [facility] [address] [facility] [id number] [place] [address] Jun, SITA PAOLA Mood disorder F39 ; Borderline personality disorder F60.3 ; Severe episode of recurrent major depressive disorder, without psychotic features F33.2 and Complex 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 IMMUNIZATIONS Vaccine Route Administration Date Status DTaP-Hib [...] 2020 Administered Hib 4 dose schedule Unknown July 28, 1997 Admini stered Hib 4 dose schedule Unknown 1996 Adminis tered gardasil-4 (history) Unknown June 19, [...] 2019 IM Intramuscular Jan 01, 2018 Administered polio ipv (history) Unknown Oct 30, 2001 Administ ered dtap (history) Unknown Oct 30, 2001 Administered dtap (history) Unknown September 22, 1997 Administered dtap (history) Unknown Mar 03, 1997 Administered mmr-II (history) Unknown Oct 30, 2001 Administere d mmr-II (history) Unknown July 28, 1997 Administe red hepatitis a (history) Unknown Mar 05, 2007 Admini stered SOCIAL HISTORY Sex Assigned At [...] No Information VITAL SIGNS Height 64 in Jun, Height-cm 162.56 cm Jun, Weight 114.8 lbs Jun, Weight-kg 52.07 kg Jun, Temperature 98.6 degrees Fahrenheit Jun, Heart Rate 83 bpm Jun, Respiratory Rate 20 bpm Jun, BMI 19.7 kg/m2 Jun, Blood pressure systolic 122 mmHg Jun, Blood pressure diastolic 56 mmHg Jun, MEDICATIONS Medication SIG (Take, Route, Fr equency, Duration) Notes Start Date End Date Status ZyrTEC 10 MG 1 tablet Unknown 27-1 MG 1 tablet Orally Once a day Unknown REASON FOR VISIT [facility] MEDICAL (GENERAL) HISTORY Type Description Date Medical [...] Assessment Notes Treatment Notes Treatment Clinical Notes Jun, Mood disorder (ICD-10 - F39) Jun, Borderline personality disorder (ICD-10 - F60.3) Jun, Severe episode of recurrent major depressive disorder, without psychotic features (ICD-10 - F33.2) Jun, Complex posttraumatic stress disorder (ICD-10 - F43.10) Jun, Other Patient to see OB tomorrow. Recommend Latuda to stabilize mood/anxiety, patient will discuss with OB. Release of records to be signed for previous providers as indicated. Lab to be drawn to establish a baseline deferred for fasting-to be done by OB Continue to work on supportive and preventative measures for diet, exercise, and disease prevention. Client & parent/gaurdian given information/card(s) and agree to contact this clinic or area crisis services in case of crisis. They are also aware of and may present to local ED as needed. - +Patient is not homicidal, suicidal, nor psychotic to the point of inability to care for self. Hospitalization is not warranted nor requested by the patient at this time. Discussed office phone call procedure. Reviewed available Emergency Services. Encouraged patient to contact office with any concerns. +Patient/parent was educated regarding the risks, benefits, and alternatives to medications including no treatment at all. Patient/parent has given consent to pharmacological intervention. We discussed the importance of taking medication as prescribed. Discussed expected onset of action, but emphasized that effect varies depending on individual. PLAN OF TREATMENT Next Appt Details 2 Weeks,3 Weeks Reason: Provider Name:MERISSA NIX , 2023-01-21 05:20:00 PM, [address] [facility], [id number], [place], [address], Provider Name:STEPHY Rose, 2023-03-19 01:00:00 PM, [address] [facility], [id number], [place], [address], Insurance Providers Payer Name Payer Address Payer Phone Insured Name Patient Relationship to Insured Coverage Start Date Coverage End Date Subscriber Number Group Number NON [facility] [address] [facility] [address] Rosemary Zuniga Self - patient is the insured [id number] NON [address] [facility] [address] Rosemary Zuniga Self - patient is the insured [id number] [facility] [address] [facility] [address] [phone] Rosemary Zuniga Self - patient is the insured [id number] [facility] [address] [facility] [address] [phone] Rosemary Zuniga Self - patient is the insured [id number] [address] [facility] [address] [phone] Rosemary Zuniga Self - patient is the insured [id number]
--- OUTSIDE RECORDS SUMMARY | 2023-01-29 05:35 | XMS REPORT ---
Author Author [facility] ter of [facility] ter of [facility] Address Unknown Phone Unavailable Care Team Providers Care Director Of Corporate Strategy Name Role Phone SINGH CHISHOLM Unavailable PROBLEMS Type Condition ICD9-CM Code RZL67-TA Code Onset Dates Condition Status W/U Status Risk SNOMED Code Notes Problem Severe episode of recurrent major depressive disorder, without psychotic features F33.2 confirmed 63135562 Problem Acute stress reaction with predominately emotional disturbance F43.9 confirmed 40167332 Problem 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 confirmed 83841900 Problem Anxiety F41.9 confirmed 00957938 Problem Seasonal allergies J30.2 confirmed 589786458 Problem Complex 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 confirmed 491870909 Problem Missed period N92.6 confirmed 679255 00 Problem Fever R50.9 confirmed 588286999 Problem Pelvic congestion syndrome N94.89 confirmed 64321933 Problem Dysuria R30.0 confirmed 48443347 Problem Irregular periods N92.6 confirmed 31366554 Problem Vaginal bleeding N93.9 confirmed 589308361 Problem Mood disorder F39 confirmed 640440 05 Problem Seasonal allergic rhinitis due to pollen J30.1 confirmed 54110023 Problem Borderline personality disorder F60.3 confirmed 17244299 Problem Discharge from the vagina N89.8 confirmed 21486428 Problem Varicose veins of both lower extremities with pain I83.813 confirmed 81182553 Problem Abnormal uterine bleeding N93.9 confirmed 7146626009 9100 Problem Positive test Z32.01 confirmed 444058555 Problem Episode of recurrent major depressive disorder, unspecified depression episode severity F33.9 confirmed 302281210 Problem Allergic rhinitis, unspecified seasonality, unspecified trigger J30.9 confirmed 40239549 Problem Major depressive disorder, recurrent severe without psychotic features F33.2 confirmed 11052147 Problem Leg paresthesia R20.2 confirmed 320548775 Problem Amenorrhea N91.2 confirmed 18969229 ALLERGIES Allergen (clinical drug ingredient) Drug/Non Drug Allergy documented on EMR Reaction Allergy Type Onset Date Status Rocephin hives Drug Allergy Active IV Contrast rash/reddened skin Non Drug Allergy Active tramadol Tramadol HCl([facility] Code:[address]-54 ) rash Drug Allergy Active ENCOUNTERS from 1996 to 2022-11-12 Encounter Location Date Provider Diagnosis [facility] [address] [facility] [id number] [place] [address] Oct, SINGH CHISHOLM Contusion of right wrist, initial encounter S60.211A IMMUNIZATIONS Vaccine Route Administration Date Status OPV [...] 2018 IM Intramuscular Dec 18, 2018 Administered gardasil-4 (history) Unknown August 21, 2006 Adminis [...] 1997 Administered dtap (history) Unknown 1996 Administered polio ipv (history) Unknown Oct 30, 2001 Administ ered mmr-II (history) Unknown Oct 30, 2001 Administere d gardasil-4 (history) Unknown June 19, 2006 Admin istered dtap (history) Unknown Oct 30, 2001 Administered dtap (history) Unknown September 22, 1997 Administered mmr-II (history) Unknown July 28, 1997 Adminloulou morales hepatitis a (history) Unknown Mar 05, 2007 Admini amberd hepatitis a (history) Unknown August 21, 2006 Admini christiane SOCIAL HISTORY Sex Assigned At : Social [...] No Information VITAL SIGNS Height 64 in Oct, Height-cm 162.56 cm Oct, Weight 129.9 lbs Oct, Weight-kg 58.92 kg Oct, Temperature 98.2 degrees Fahrenheit Oct, Heart Rate 97 bpm Oct, Respiratory Rate 18 bpm Oct, Oximetry 97 % Oct, BMI 22.29 kg/m2 Oct, Blood pressure systolic 98 mmHg Oct, Blood pressure diastolic 60 mmHg Oct, MEDICATIONS Medication SIG (Take, Route, Fr equency, Duration) Notes Start Date End Date Status ZyrTEC 10 MG 1 tablet Unknown 27-1 MG 1 tablet Orally Once a day Unknown REASON FOR VISIT vein on wrist c/o--pt stated she went to the hospital last night and they blew a vein, welted up--Shiloh sheth MA verbally verified MEDICAL (GENERAL) HISTORY Type Description Date Medical [...] Notes Treatment Notes Treatment Clinical Notes Oct, Contusion of right wrist, initial encounter (ICD-10 - S60.211A) SARAH rest elevation moist warm compress f/u if no improvement or s/s of infection or if pain occurs Oct, Other Learning About RICE (Rest, Ice, Compression, and Elevation) material was published Medications as directed, supportive care and monitoring, rest as able, push fluids to maintain hydration. Office visit it not improving. Patient verbalized understanding of above instructions. PLAN OF TREATMENT Treatment Notes Assessment Notes Clinical Notes Contusion of right wrist, in itial encounter SARAH rest elevation moist warm compress f/u if no improvement or s/s of infection or if pain occurs Next Appt Details if not improving with PCP or reg follow up Reason: Provider Name:MERISSA NIX , 2023-01-21 05:20:00 PM, [address] [facility], [id number], [place], [address], Provider Name:STEPHY Pierson LAUREN Rose, 2023-03-19 01:00:00 PM, [address] [facility], [id number], [place], [address], Insurance Providers Payer Name Payer Address Payer Phone Insured Name Patient Relationship to Insured Coverage Start Date Coverage End Date Subscriber Number Group Number NON [id number] [facility] [phone] Rosemary Zuniga Self - patient is the insured [id number] [facility] 19 [address] [facility] [address] Rosemary Zuniga Self - patient is the insured [id number] [address] [facility] [address] Rosemary Zuniga Self - patient is the insured [id number] [facility] [address] [facility] [address] Rosemary Zuniga Self - patient is the insured [id number] [facility] [address] [facility] [address] Rosemary Zuniga Self - patient is the insured [id number]
--- OUTSIDE RECORDS SUMMARY | 2023-01-29 05:35 | XMS REPORT ---
Author Author [facility] ter of [facility] ter of [facility] Address Unknown Phone Unavailable Care Team Providers Care Beater And Pulper Feeder Name Role Phone BARRETT Redman Unavailable [phone] PROBLEMS Type Condition ICD9-CM Code IJI73-BD Code Onset Dates Condition Status W/U Status Risk SNOMED Code Notes Problem Severe episode of recurrent major depressive disorder, without psychotic features F33.2 confirmed 11145013 Problem Acute stress reaction with predominately emotional disturbance F43.9 confirmed 47873837 Problem 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 confirmed 73308197 Problem Anxiety F41.9 confirmed 43474815 Problem Seasonal allergies J30.2 confirmed 914818589 Problem Complex 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 confirmed 556314121 Problem Missed period N92.6 confirmed 535855 00 Problem Fever R50.9 confirmed 867489856 Problem Pelvic congestion syndrome N94.89 confirmed 80162932 Problem Dysuria R30.0 confirmed 10424076 Problem Irregular periods N92.6 confirmed 89893591 Problem Vaginal bleeding N93.9 confirmed 624355147 Problem Mood disorder F39 confirmed 873148 05 Problem Seasonal allergic rhinitis due to pollen J30.1 confirmed 45580827 Problem Borderline personality disorder F60.3 confirmed 46013754 Problem Discharge from the vagina N89.8 confirmed 10162859 Problem Varicose veins of both lower extremities with pain I83.813 confirmed 22071368 Problem Abnormal uterine bleeding N93.9 confirmed 7057209743 9100 Problem Positive test Z32.01 confirmed 296190722 Problem Episode of recurrent major depressive disorder, unspecified depression episode severity F33.9 confirmed 919535439 Problem Allergic rhinitis, unspecified seasonality, unspecified trigger J30.9 confirmed 22032462 Problem Major depressive disorder, recurrent severe without psychotic features F33.2 confirmed 95835285 Problem Leg paresthesia R20.2 confirmed 802088985 Problem Amenorrhea N91.2 confirmed 78982260 ALLERGIES Allergen (clinical drug ingredient) Drug/Non Drug Allergy documented on EMR Reaction Allergy Type Onset Date Status Rocephin hives Drug Allergy Active IV Contrast rash/reddened skin Non Drug Allergy Active tramadol Tramadol HCl([facility] Code:[address]-77 ) rash Drug Allergy Active ENCOUNTERS from 1996 to 2022-12-22 Encounter Location Date Provider Diagnosis [facility] [address] [facility] [id number] [place] [address] Nov, BARRETT Redman IMMUNIZATIONS Vaccine Route Administration Date Status gardasil-4 [...] mmr-II (history) Unknown Oct 30, 2001 Administere nghia polio ipv (history) Unknown Oct 30, 2001 Administ sylvie comvax hib/hep b (history) Unknown Mar 03, 1997 A dministered PRIVATE FLULAVAL QUAD 0.5ML (6 MO AND UP) 2019 IM Intramuscular Dec 30, 2019 Administered PRIVATE FLULAVAL QUAD 0.5ML (6 MO AND UP) 2020 IM Intramuscular Dec 21, 2020 Administered SOCIAL HISTORY Sex Assigned At : [...] 30 days Nov, Active REASON FOR VISIT *APPOINTMENT MEDICAL (GENERAL) HISTORY Type Description Date Medical [...] PM, [address] [facility], [id number], [place], [address], Provider Name:AGUILA GAYLE, 2023-03-19 01:00:00 PM, [address] [facility], [id number], [place], [address], Insurance Providers Payer Name Payer Address Payer Phone Insured Name Patient Relationship to Insured Coverage Start Date Coverage End Date Subscriber Number Group Number [facility] [address] [facility] [phone] Rosemary Zuniga Self - patient is the insured [id number] [facility] 19 [address] [facility] [address] [phone] Rosemary Zuniga Self - patient is the insured [id number] [address] [facility] [address] Rosemary Zuniga Self - patient is the insured [id number] NON [employer] [address] [facility] [address] Rosemary Zuniga Self - patient is the insured [id number] NON FQHC [place] [address] [address] [facility] [address] Rosemary Zuniga Self - patient is the insured [id number]
--- OUTSIDE RECORDS SUMMARY | 2023-01-29 05:36 | XMS REPORT ---
Author Author [facility] ter of [facility] ter of [facility] Address Unknown Phone Unavailable Care Team Providers Care Sawmill Supervisor Name Role Phone BARRETT Redman Unavailable [phone] PROBLEMS Type Condition ICD9-CM Code WAW54-BC Code Onset Dates Condition Status W/U Status Risk SNOMED Code Notes Problem Acute stress reaction with predominately emotional disturbance F43.9 confirmed 17562633 Problem Episode of recurrent major depressive disorder, unspecified depression episode severity F33.9 confirmed 383815839 Problem Anxiety F41.9 confirmed 97825041 Problem Severe episode of recurrent major depressive disorder, without psychotic features F33.2 confirmed 57968137 Problem Complex 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 confirmed 950406070 Problem 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 confirmed 62810960 Problem Pelvic congestion syndrome N94.89 confirmed 09758025 Problem Dysuria R30.0 confirmed 61960002 Problem Seasonal allergies J30.2 confirmed 607740872 Problem Borderline personality disorder F60.3 confirmed 29050627 Problem Irregular periods N92.6 confirmed 41775726 Problem Vaginal bleeding N93.9 confirmed 803561079 Problem Amenorrhea N91.2 confirmed 78888967 Problem Abnormal uterine bleeding N93.9 confirmed 5492324427 9100 Problem Positive test Z32.01 confirmed 339968385 Problem Seasonal allergic rhinitis due to pollen J30.1 confirmed 32676917 Problem Missed period N92.6 confirmed 609039 00 Problem Fever R50.9 confirmed 058106762 Problem Discharge from the vagina N89.8 confirmed 65401733 Problem Mood disorder F39 confirmed 843666 05 Problem Allergic rhinitis, unspecified seasonality, unspecified trigger J30.9 confirmed 26949759 Problem Major depressive disorder, recurrent severe without psychotic features F33.2 confirmed 58633548 Problem Leg paresthesia R20.2 confirmed 497168742 ALLERGIES Allergen (clinical drug ingredient) Drug/Non Drug Allergy documented on EMR Reaction Allergy Type Onset Date Status Rocephin hives Drug Allergy Active IV Contrast rash/reddened skin Non Drug Allergy Active tramadol Tramadol HCl([facility] Code:[address]-21 ) rash Drug Allergy Active ENCOUNTERS from 1996 to 2022-09-15 Encounter Location Date Provider Diagnosis [facility] [address] [facility] [id number] [place] [address] Aug, BARRETT Redman Severe episode of recurrent major [...] you been feeling down, depressed, or hopeless? Not at all Total PHQ2 Score 0 Tobacco use other than smoking: Question Answer Notes Are you an other tobacco user? No REASON FOR REFERRAL No Information MEDICATIONS Medication SIG (Take, Route, Frequency, Duration) Notes Start Date End Date Status Flonase Not-Taking Azithromycin 250 mg [address] day, then 1 tablet daily for 4 days Orally Once a day for 5 day(s) May, Active Benadryl Active ZyrTEC 10 MG 1 tablet Active Miconazole 7 100 mg 1 suppository at bed time Vaginal Once a day for 7 days May, Not-Taking 27-1 MG 1 tablet Orally Once a day Active REASON FOR VISIT f/u MEDICAL (GENERAL) HISTORY Type Description Date Medical History ovarian cysts Medical History pelvic pain Medical History Hemorrhoids, unspecified hemorrh oid type Medical History Vitamin D insufficiency Medical History Dysthymia Medical History pelvic congestion syndrome Medical History currently 2020 Medical History currently FEB 05 2023 Surgical History dental surgery Surgical History dilatation and curettage Surgical History x 3 Surgical History wisdom teeth Hospitalization History Complications after C-Se ction 2016 Hospitalization History 2019 MENTAL STATUS No Information ASSESSMENTS Encounter Date Diagnosis Assessment Notes Treatment Notes Treatment Clinical Notes Aug, Severe episode of recurrent major depressive disorder, without psychotic features (ICD-10 - F33.2) PLAN OF TREATMENT Next Appt Details 2 Weeks Reason: Follow Up Provider Name:ARPITA Butler, 2022-09-24 04:00:00 PM, [address] [facility], [id number], [place], [address], Provider Name:MERISSA NIX , 2022-10-17 03:00:00 PM, [address] [facility], [id number], [place], [address], Provider Name:CINDY JOYA, 2023-03-19 01:00:00 PM, [address] [place] [address], [id number], [place], [address], Follow Up:2 WeeksBH Follow Up Insurance Providers Payer Name Payer Address Payer Phone Insured Name Patient Relationship to Insured Coverage Start Date Coverage End Date Subscriber Number Group Number [address] [facility] [phone] Rosemary Zuniga Self - patient is the insured [id number] [facility] 19 [address] [facility] [phone] Rosemary Zuniga Self - patient is the insured [id number] NON FQHC [address] [facility] [phone] Rosemary Zuniga Self - patient is the insured [id number] NON FQHC [facility] 19 [address] [facility] [address] Rosemary Zuniga Self - patient is the insured [id number] [address] [facility] [address] [phone] Rosemary Zuniga Self - patient is the insured [id number]
--- OUTSIDE RECORDS SUMMARY | 2023-01-29 05:36 | XMS REPORT ---
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 confirmed 96362605 Problem Anxiety F41.9 confirmed 96020731 Problem Seasonal allergies J30.2 confirmed 090612968 Problem Complex 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 confirmed 668040366 Problem Missed period N92.6 confirmed 900627 00 Problem Fever R50.9 confirmed 854732940 Problem Pelvic congestion syndrome N94.89 confirmed 88577138 Problem Dysuria R30.0 confirmed 99670422 Problem Irregular periods N92.6 confirmed 49342456 Problem Vaginal bleeding N93.9 confirmed 362314554 Problem Mood disorder F39 confirmed 783506 05 Problem Seasonal allergic rhinitis due to pollen J30.1 confirmed 26352620 Problem Borderline personality disorder F60.3 confirmed 81894871 Problem Discharge from the vagina N89.8 confirmed 45233164 Problem Varicose veins of both lower extremities with pain I83.813 confirmed 63916513 Problem Abnormal uterine bleeding N93.9 confirmed 8940749283 9100 Problem Positive test Z32.01 confirmed 003036641 Problem Episode of recurrent major depressive disorder, unspecified depression episode severity F33.9 confirmed 349969702 Problem Allergic rhinitis, unspecified seasonality, unspecified trigger J30.9 confirmed 91298136 Problem Major depressive disorder, recurrent severe without psychotic features F33.2 confirmed 15396529 Problem Leg paresthesia R20.2 confirmed 556786733 Problem Amenorrhea N91.2 confirmed 79299826 ALLERGIES Allergen (clinical drug ingredient) Drug/Non Drug Allergy documented on EMR Reaction Allergy Type Onset Date Status Rocephin hives Drug Allergy Active IV Contrast rash/reddened skin Non Drug Allergy Active tramadol Tramadol HCl([facility] Code:[address]-59 ) rash Drug Allergy Active ENCOUNTERS from 1996 to 2022-09-28 Encounter Location Date Provider Diagnosis [facility] [address] [facility] [id number] [place] [address] Sep, JULIO ZAMORA IMMUNIZATIONS Vaccine Route Administration Date Status gardasil-4 (history) Unknown August 21, 2006 Adminis tered gardasil-4 (history) Unknown June 19, 2006 Admin istered dtap (history) Unknown Oct 30, 2001 Administered PRIVATE FLULAVAL QUAD 0.5ML (6 MO AND UP) 2018 IM Intramuscular Dec 18, 2018 Administered tdap (history) Unknown Feb 28, 2021 Administered tdap (history) Unknown June 02, 2018 Administere d tdap (history) Unknown October 03, 2016 Administered gardasil-4 (history) Unknown Mar 05, 2007 Adminis tered PRIVATE FLULAVAL QUAD 0.5ML (6 MO AND UP) 2019 IM Intramuscular Dec 30, 2019 Administered hepatitis a (history) Unknown Mar 05, 2007 Admini stered hepatitis a (history) Unknown August 21, 2006 Admini stered mmr-II (history) Unknown Oct 30, 2001 Administere d polio ipv (history) Unknown Oct 30, 2001 Administ ered PRIVATE FLULAVAL QUAD 0.5ML (6 MO AND UP) 2018 IM Intramuscular Jan 01, 2018 Administered dtap (history) Unknown 1996 Administered [...] 28, 1997 Administered OPV Unknown 1996 Administered mmr-II (history) Unknown July 28, 1997 Adminloulou morales hepatitis b pediatric (history) Unknown 1996 Administered hepatitis b pediatric (history) Unknown August 26 997 Administered OPV Unknown 1996 Administered Hib 4 dose schedule Unknown July 28, 1997 Admini amberd Hib 4 dose schedule Unknown 1996 Adminis terkarli SOCIAL HISTORY Sex Assigned At : Social [...] Duration) Notes Start Date End Date Status 27-1 MG 1 tablet Orally Once a day Active ZyrTEC 10 MG 1 tablet Active REASON FOR VISIT Dental MEDICAL (GENERAL) HISTORY Type Description Date Medical [...] Next Appt Details Provider Name:MERISSA NIX , 2022-10-17 03:00:00 PM, [address] [facility], [id number], [place], [address], Provider Name:CINDY JOYA, 2023-03-19 01:00:00 PM, [address] [facility], [id number], [place], [address], Insurance Providers Payer Name Payer Address Payer Phone Insured Name Patient Relationship to Insured Coverage Start Date Coverage End Date Subscriber Number Group Number MELISSA GRANGER [facility] [address] [facility] [address] [facility] [address] Rosemary Zuniga Self - patient is the insured [id number] [facility] 19 [address] [facility] [phone] Rosemary Zuniga Self - patient is the insured [id number] NON [address] [facility] [phone] Rosemary Zuniga Self - patient is the insured [id number] NON [facility] [address] [facility] [address] Rosemary Zuniga Self - patient is the insured [id number] [facility] 19 [address] [facility] [address] Rosemary Zuniga Self - patient is the insured [id number]
--- OUTSIDE RECORDS SUMMARY | 2023-01-29 05:36 | XMS REPORT ---
Author Author [facility] ter of [facility] ter of [facility] Address Unknown Phone Unavailable Care Team Providers Care Flue Dust Laborer Name Role Phone CINDY TANG Unavailable PROBLEMS Type Condition ICD9-CM Code VRY23-JB Code Onset Dates Condition Status W/U Status Risk SNOMED Code Notes Problem Acute stress reaction with predominately emotional disturbance F43.9 confirmed 43677081 Problem Episode of recurrent major depressive disorder, unspecified depression episode severity F33.9 confirmed 164513685 Problem Anxiety F41.9 confirmed 02115502 Problem Severe episode of recurrent major depressive disorder, without psychotic features F33.2 confirmed 80084555 Problem Complex 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 confirmed 457048728 Problem 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 confirmed 86374741 Problem Pelvic congestion syndrome N94.89 confirmed 52973990 Problem Dysuria R30.0 confirmed 71938307 Problem Seasonal allergies J30.2 confirmed 988754507 Problem Borderline personality disorder F60.3 confirmed 61054910 Problem Irregular periods N92.6 confirmed 97032789 Problem Vaginal bleeding N93.9 confirmed 979799089 Problem Amenorrhea N91.2 confirmed 14343788 Problem Abnormal uterine bleeding N93.9 confirmed 9005872528 9100 Problem Positive test Z32.01 confirmed 789072076 Problem Seasonal allergic rhinitis due to pollen J30.1 confirmed 90704383 Problem Missed period N92.6 confirmed 686572 00 Problem Fever R50.9 confirmed 609228511 Problem Discharge from the vagina N89.8 confirmed 60817991 Problem Mood disorder F39 confirmed 040422 05 Problem Allergic rhinitis, unspecified seasonality, unspecified trigger J30.9 confirmed 31204267 Problem Major depressive disorder, recurrent severe without psychotic features F33.2 confirmed 29469528 Problem Leg paresthesia R20.2 confirmed 401191971 ALLERGIES Allergen (clinical drug ingredient) Drug/Non Drug Allergy documented on EMR Reaction Allergy Type Onset Date Status Rocephin hives Drug Allergy Active IV Contrast rash/reddened skin Non Drug Allergy Active tramadol Tramadol HCl([facility] Code:[address]-57 ) rash Drug Allergy Active ENCOUNTERS from 1996 to 2022-09-14 Encounter Location Date Provider Diagnosis [facility] [place] [address] [facility] [id number] [place] [address] Sep, CINDY TANG Severe episode of recurrent major [...] Next Appt Details 2 - 3 Days Reason:IHAP Provider Name:ARPITA Butler, 2022-09-24 04:00:00 PM, [address] [facility], [id number], [place], [address], Provider Name:MERISSA NIX , 2022-10-17 03:00:00 PM, [address] [facility], [id number], [place], [address], Provider Name:CINDY HARDWICKK, 2023-03-19 01:00:00 PM, [address] [facility], [id number], [place], [address], Follow Up:2 - 3 DaysIHAP Insurance Providers Payer Name Payer Address Payer Phone Insured Name Patient Relationship to Insured Coverage Start Date Coverage End Date Subscriber Number Group Number [address] [facility] [id number] Rosemary Zuniga Self - patient is the insured [id number] NON FQHC [facility] 19 [address] [facility] [address] Rosemary Zuniga Self - patient is the insured [id number] NON FQHC [address] [facility]NOTE 3] [id number] Rosemary Zuniga Self - patient is the insured [id number] [facility] 19 [address] [facility] [address] Rosemary Zuniga Self - patient is the insured [id number] [address] [facility] [address] Rosemary Zuniga Self - patient is the insured [id number]
--- OUTSIDE RECORDS SUMMARY | 2023-01-29 05:36 | XMS REPORT ---
Author Author [facility] ter of [facility] ter [facility] Address Unknown Phone Unavailable Care Team Providers Care Hourly Team Members Name Role Phone CINDY TANG Unavailable PROBLEMS ALLERGIES ENCOUNTERS from 1996 to 2022-09-05 IMMUNIZATIONS SOCIAL HISTORY No smoking Hx information available REASON FOR REFERRAL No Information MEDICATIONS REASON FOR VISIT MEDICAL (GENERAL) HISTORY MENTAL STATUS ASSESSMENTS PLAN OF TREATMENT Insurance Providers
--- OUTSIDE RECORDS SUMMARY | 2023-01-29 05:36 | XMS REPORT ---
Author Author [facility] ter of [facility] ter of [facility] Address Unknown Phone Unavailable Care Team Providers Care Soc Analyst Name Role Phone BARRETT Redman Unavailable PROBLEMS Type Condition ICD9-CM Code [id number] Code Onset Dates Condition Status W/U Status Risk SNOMED Code Notes Problem Acute stress reaction with predominately emotional disturbance F43.9 confirmed 69994599 Problem Episode of recurrent major depressive disorder, unspecified depression episode severity F33.9 confirmed 632086954 Problem Anxiety F41.9 confirmed 71038098 Problem Severe episode of recurrent major depressive disorder, without psychotic features F33.2 confirmed 97044602 Problem Complex 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 confirmed 480473213 Problem 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 confirmed 37026290 Problem Pelvic congestion syndrome N94.89 confirmed 28574795 Problem Dysuria R30.0 confirmed 47930435 Problem Seasonal allergies J30.2 confirmed 902363457 Problem Borderline personality disorder F60.3 confirmed 21487788 Problem Irregular periods N92.6 confirmed 62619110 Problem Vaginal bleeding N93.9 confirmed 366184231 Problem Amenorrhea N91.2 confirmed 88523041 Problem Abnormal uterine bleeding N93.9 confirmed 2313034698 9100 Problem Positive test Z32.01 confirmed 958045170 Problem Seasonal allergic rhinitis due to pollen J30.1 confirmed 46941281 Problem Missed period N92.6 confirmed 015468 00 Problem Fever R50.9 confirmed 910649049 Problem Discharge from the vagina N89.8 confirmed 82248338 Problem Mood disorder F39 confirmed 993617 05 Problem Allergic rhinitis, unspecified seasonality, unspecified trigger J30.9 confirmed 09933681 Problem Major depressive disorder, recurrent severe without psychotic features F33.2 confirmed 81250458 Problem Leg paresthesia R20.2 confirmed 398678273 ALLERGIES Allergen (clinical drug ingredient) Drug/Non Drug Allergy documented on EMR Reaction Allergy Type Onset Date Status Rocephin hives Drug Allergy Active IV Contrast rash/reddened skin Non Drug Allergy Active tramadol Tramadol HCl([facility] Code:[address]-96 ) rash Drug Allergy Active ENCOUNTERS from 1996 to 2022-09-03 Encounter Location Date Provider Diagnosis [facility] [place] [address] [facility] [id number] [place] [address] 07 Jul, 2020 CHARROGERIO Redman Complex 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 and Borderline personality disorder F60.3 IMMUNIZATIONS Vaccine Route Administration Date Status DTaP-Hib [...] 2018 IM Intramuscular Dec 18, 2018 Administered dtap (history) Unknown Oct 30, [...] 2019 IM Intramuscular Dec 30, 2019 Administered comvax hib/hep b (history) Unknown Mar 03, 1997 A dministered dtap (history) Unknown September 22, 1997 Administered dtap (history) Unknown Mar 03, 1997 Administered hepatitis a (history) Unknown Mar 05, 2007 Admini stered hepatitis a (history) Unknown August 21, 2006 Admini stered PRIVATE FLULAVAL QUAD 0.5ML (6 MO AND UP) 2019 IM Intramuscular Jan 01, 2018 Administered dtap (history) Unknown 1996 Administered polio [...] Once a day Active REASON FOR VISIT [facility] CRISIS - [phone] MEDICAL (GENERAL) HISTORY Type Description Date Medical [...] Assessment Notes Treatment Notes Treatment Clinical Notes July, Complex posttraumati c stress disorder (ICD-10 - F43.10) July, Borderline personality disorder (ICD-10 - F60.3) PLAN OF TREATMENT Next Appt Details 1-2 Weeks Reason: Follow U p Provider Name:MERISSA NIX , 2022-10-17 03:00:00 PM, [address] [facility], [id number], [place], [address], Provider Name:CINDY JOYA, 2023-03-19 01:00:00 PM, [address] [facility], [id number], [place], [address], Follow Up:1-2 WeeksBH Follow Up Insurance Providers Payer Name Payer Address Payer Phone Insured Name Patient Relationship to Insured Coverage Start Date Coverage End Date Subscriber Number Group Number NON [facility] 19 [address] [facility] [address] Rosemary Zuniga Self - patient is the insured [id number] NON [address] [facility] [address] Rosemary Zuniga Self - patient is the insured [id number] [address] [facility] [address] Rosemary Zuniga Self - patient is the insured [id number] [place] [address] [address] [facility] [address] Rosemary Zuniga Self - patient is the insured [id number] [place] [address] [address] [facility] [address] Rosemary Zuniga Self - patient is the insured [id number]
--- OUTSIDE RECORDS SUMMARY | 2023-01-29 05:36 | XMS REPORT ---
Author Author [facility] ter of [facility] ter of [facility] Address Unknown Phone Unavailable Care Team Providers Care Teenage Program Director Name Role Phone CINDY TANG Unavailable [phone] PROBLEMS Type Condition ICD9-CM Code [id number] Code Onset Dates Condition Status W/U Status Risk SNOMED Code Notes Problem Severe episode of recurrent major depressive disorder, without psychotic features F33.2 confirmed 28437305 Problem Acute stress reaction with predominately emotional disturbance F43.9 confirmed 03893598 Problem 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 confirmed 73010868 Problem Anxiety F41.9 confirmed 95573393 Problem Seasonal allergies J30.2 confirmed 128359536 Problem Complex 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 confirmed 983431862 Problem Missed period N92.6 confirmed 429793 00 Problem Fever R50.9 confirmed 845360566 Problem Pelvic congestion syndrome N94.89 confirmed 27895911 Problem Dysuria R30.0 confirmed 58187189 Problem Irregular periods N92.6 confirmed 92384746 Problem Vaginal bleeding N93.9 confirmed 725137561 Problem Mood disorder F39 confirmed 423855 05 Problem Seasonal allergic rhinitis due to pollen J30.1 confirmed 69571470 Problem Borderline personality disorder F60.3 confirmed 70659127 Problem Discharge from the vagina N89.8 confirmed 40805607 Problem Varicose veins of both lower extremities with pain I83.813 confirmed 01075240 Problem Abnormal uterine bleeding N93.9 confirmed 4500984183 9100 Problem Positive test Z32.01 confirmed 949980885 Problem Episode of recurrent major depressive disorder, unspecified depression episode severity F33.9 confirmed 299100295 Problem Allergic rhinitis, unspecified seasonality, unspecified trigger J30.9 confirmed 04601039 Problem Major depressive disorder, recurrent severe without psychotic features F33.2 confirmed 44442931 Problem Leg paresthesia R20.2 confirmed 541365714 Problem Amenorrhea N91.2 confirmed 43997135 ALLERGIES Allergen (clinical drug ingredient) Drug/Non Drug Allergy documented on EMR Reaction Allergy Type Onset Date Status Rocephin hives Drug Allergy Active IV Contrast rash/reddened skin Non Drug Allergy Active tramadol Tramadol HCl([facility] Code:[address]-58 ) rash Drug Allergy Active ENCOUNTERS from 1996 to 2022-09-27 Encounter Location Date Provider Diagnosis [facility] [address] [facility] [id number] [place] [address] Sep, CINDY TANG Severe episode of recurrent major depressive disorder, without psychotic features F33.2 IMMUNIZATIONS Vaccine Route Administration Date Status gardasil-4 [...] (history) Unknown August 21, 2006 Adminis tered PRIVATE FLULAVAL QUAD 0.5ML (6 MO AND UP) 2020 IM Intramuscular Dec 21, 2020 Administered PRIVATE FLULAVAL QUAD 0.5ML (6 MO AND UP) 2018 IM Intramuscular Dec 18, 2018 Administered PRIVATE FLULAVAL QUAD 0.5ML (6 MO AND UP) 2018 IM Intramuscular Jan 01, 2018 Administered mmr-II (history) Unknown July 28, 1997 Administe red mmr-II (history) Unknown Oct 30, 2001 Administere d polio ipv (history) Unknown Oct 30, 2001 Administ ered dtap (history) Unknown 1996 Administered dtap (history) Unknown Mar 03, 1997 Administered dtap (history) Unknown September 22, 1997 Administered comvax hib/hep b (history) Unknown Mar 03, 1997 A dministered PRIVATE FLULAVAL QUAD 0.5ML (6 MO AND UP) 2019 IM Intramuscular Dec 30, 2019 Administered DTaP-Hib Unknown 1996 Administered OPV Unknown July 28, 1997 Administered OPV Unknown 1996 Administered OPV Unknown 1996 Administered hepatitis b pediatric (history) Unknown 1996 Administered hepatitis b pediatric (history) Unknown August 26 997 Administered hepatitis b pediatric (history) Unknown 1996 Administered Hib 4 dose schedule Unknown July 28, 1997 Admini stered Hib 4 dose schedule Unknown 1996 Adminis tered tdap (history) Unknown Feb 28, 2021 Administered [...] MG 1 tablet Active REASON FOR VISIT [facility] MED[facility] [...] prn Reason:Check In Provider Name:MERISSA NIX , 2022-10-17 03:00:00 PM, [address] [facility], [id number], [place], [address], Provider Name:CINDY JOYA, 2023-03-19 01:00:00 PM, [address] [facility], [id number], [place], [address], Follow Up:prnCheck In Insurance Providers Payer Name Payer Address Payer Phone Insured Name Patient Relationship to Insured Coverage Start Date Coverage End Date Subscriber Number Group Number [facility] 19 [address] [facility] [address] Rosemary Zuniga Self - patient is the insured [id number] [address] [facility] [address] Rosemary Zuniga Self - patient is the insured [id number] NON [address] [facility] [address] Rosemary Zuniga Self - patient is the insured [id number] [facility] 19 [address] [facility] [address] Rosemary Zuniga Self - patient is the insured [id number] [facility] 19 [address] [facility] [address] Rosemary Zuniga Self - patient is the insured [id number]
--- OUTSIDE RECORDS SUMMARY | 2023-01-29 05:36 | XMS REPORT ---
Author Author [facility] ter of [facility] ter of [facility] Address Unknown Phone Unavailable Care Team Providers Care Customer Support Executive Name Role Phone BARRETT Redman Unavailable [phone] PROBLEMS Type Condition ICD9-CM Code BRT89-GR Code Onset Dates Condition Status W/U Status Risk SNOMED Code Notes Problem Acute stress reaction with predominately emotional disturbance F43.9 confirmed 86381473 Problem Episode of recurrent major depressive disorder, unspecified depression episode severity F33.9 confirmed 605986748 Problem Anxiety F41.9 confirmed 88863233 Problem Severe episode of recurrent major depressive disorder, without psychotic features F33.2 confirmed 98292303 Problem Complex 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 confirmed 078059668 Problem 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 confirmed 29884645 Problem Pelvic congestion syndrome N94.89 confirmed 90053189 Problem Dysuria R30.0 confirmed 09803553 Problem Seasonal allergies J30.2 confirmed 040430704 Problem Borderline personality disorder F60.3 confirmed 07562182 Problem Irregular periods N92.6 confirmed 34719390 Problem Vaginal bleeding N93.9 confirmed 858361465 Problem Amenorrhea N91.2 confirmed 42331365 Problem Abnormal uterine bleeding N93.9 confirmed 6092292437 9100 Problem Positive test Z32.01 confirmed 349634242 Problem Seasonal allergic rhinitis due to pollen J30.1 confirmed 83204533 Problem Missed period N92.6 confirmed 307660 00 Problem Fever R50.9 confirmed 311646712 Problem Discharge from the vagina N89.8 confirmed 06043111 Problem Mood disorder F39 confirmed 985548 05 Problem Allergic rhinitis, unspecified seasonality, unspecified trigger J30.9 confirmed 13542625 Problem Major depressive disorder, recurrent severe without psychotic features F33.2 confirmed 93250337 Problem Leg paresthesia R20.2 confirmed 009563653 ALLERGIES Allergen (clinical drug ingredient) Drug/Non Drug Allergy documented on EMR Reaction Allergy Type Onset Date Status Rocephin hives Drug Allergy Active IV Contrast rash/reddened skin Non Drug Allergy Active tramadol Tramadol HCl([facility] Code:[address]-08 ) rash Drug Allergy Active ENCOUNTERS from 1996 to 2022-09-08 Encounter Location Date Provider Diagnosis [facility] [address] [facility] [id number] [place] [address] Aug, BARRETT Redman Borderline personality disorder F60.3 and Complex 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 IMMUNIZATIONS [...] 30, 2019 Administered hepatitis a (history) Unknown August 21, 2006 Admini stered comvax hib/hep b (history) Unknown Mar 03, 1997 A dministered dtap (history) Unknown September 22, 1997 Administered dtap (history) Unknown Mar 03, 1997 Administered gardasil-4 (history) Unknown June 19, 2006 Admin istered dtap (history) Unknown Oct 30, 2001 Administered hepatitis a (history) Unknown Mar 05, 2007 Admini stered dtap (history) Unknown 1996 Administered polio ipv [...] a day Active REASON FOR VISIT f/u [phone] MEDICAL (GENERAL) HISTORY Type Description Date Medical [...] Notes Treatment Notes Treatment Clinical Notes Aug, Complex posttraumati c stress disorder (ICD-10 - F43.10) Aug, Borderline personality disorder (ICD-10 - F60.3) PLAN OF TREATMENT Next Appt Details 2 Weeks Reason: Follow Up Provider Name:MERISSA NIX , 2022-10-17 03:00:00 PM, [address] [facility], [id number], [place], [address], Provider Name:CINDY JOYA, 2023-03-19 01:00:00 PM, [address] [facility], [id number], [place], [address], Follow Up:2 WeeksBH Follow Up Insurance Providers Payer Name Payer Address Payer Phone Insured Name Patient Relationship to Insured Coverage Start Date Coverage End Date Subscriber Number Group Number NON [facility] 19 [address] [facility] [address] Rosemary Zuniga Self - patient is the insured [id number] [facility] 19 [address] [facility] [address] [phone] Rosemary Zuniga Self - patient is the insured [id number] [address] [facility] [address] Rosemary Zuniga Self - patient is the insured [id number] [place] [address] [address] [facility] [address] [phone] Rosemary Zuniga Self - patient is the insured [id number] [address] [facility] [address] Rosemary Zuniga Self - patient is the insured [id number]
--- OUTSIDE RECORDS SUMMARY | 2023-01-29 05:36 | XMS REPORT ---
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 confirmed 83691732 Problem Anxiety F41.9 confirmed 02565156 Problem Seasonal allergies J30.2 confirmed 908352021 Problem Complex 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 confirmed 679064197 Problem Missed period N92.6 confirmed 136642 00 Problem Fever R50.9 confirmed 288267284 Problem Pelvic congestion syndrome N94.89 confirmed 71794067 Problem Dysuria R30.0 confirmed 88932919 Problem Irregular periods N92.6 confirmed 25073794 Problem Vaginal bleeding N93.9 confirmed 177061090 Problem Mood disorder F39 confirmed 179118 05 Problem Seasonal allergic rhinitis due to pollen J30.1 confirmed 45826799 Problem Borderline personality disorder F60.3 confirmed 60841893 Problem Discharge from the vagina N89.8 confirmed 14061863 Problem Varicose veins of both lower extremities with pain I83.813 confirmed 60132512 Problem Abnormal uterine bleeding N93.9 confirmed 8675241538 9100 Problem Positive test Z32.01 confirmed 891286481 Problem Episode of recurrent major depressive disorder, unspecified depression episode severity F33.9 confirmed 678997952 Problem Allergic rhinitis, unspecified seasonality, unspecified trigger J30.9 confirmed 95483888 Problem Major depressive disorder, recurrent severe without psychotic features F33.2 confirmed 05242801 Problem Leg paresthesia R20.2 confirmed 311164695 Problem Amenorrhea N91.2 confirmed 52124084 ALLERGIES Allergen (clinical drug ingredient) Drug/Non Drug Allergy documented on EMR Reaction Allergy Type Onset Date Status Rocephin hives Drug Allergy Active IV Contrast rash/reddened skin Non Drug Allergy Active tramadol Tramadol HCl([facility] Code:[address]-02 ) rash Drug Allergy Active ENCOUNTERS from 1996 to 2022-09-23 Encounter Location Date Provider [facility] [address] [facility] [id number] [place] [address] Sep, CRYSTAL SHU IMMUNIZATIONS Vaccine Route Administration Date Status comvax [...] (history) Unknown Mar 05, 2007 Admini stered mmr-II (history) Unknown July 28, 1997 Adminloulou [...] MG 1 tablet Active REASON FOR VISIT Requests return call [...] PLAN OF TREATMENT Next Appt Details Provider Name:ARPITA Butler, 2022-09-24 04:00:00 PM, [address] [facility], [id number], [place], [address], Provider Name:MERISSA NIX , 2022-10-17 03:00:00 PM, [address] [facility], [id number], [place], [address], Provider Name:CINDY JOYA, 2023-03-19 01:00:00 PM, [address] [facility], [id number], [place], [address], Insurance Providers Payer Name Payer Address Payer Phone Insured Name Patient Relationship to Insured Coverage Start Date Coverage End Date Subscriber Number Group Number [facility] 19 [address] [facility] [address] Rosemary Zuniga Self - patient is the insured [id number] NON [facility] 19 [address] [facility] [address] Rosemary Zuniga Self - patient is the insured [id number] NON [facility] [address] [facility] [address] Rosemary Zuniga Self - patient is the insured [id number] [facility] 19 [address] [facility] [address] Rosemary Zuniga Self - patient is the insured [id number] [address] [facility] [address] Rosemary Zuniga Self - patient is the insured [id number]
--- OUTSIDE RECORDS SUMMARY | 2023-01-29 05:36 | XMS REPORT ---
Author Author [facility] ter of [facility] ter of [facility] Address Unknown Phone Unavailable Care Team Providers Care Signaling Project Engineer Name Role Phone JILLIAN Hopkins Unavailable PROBLEMS Type Condition ICD9-CM Code MEJ19-RV Code Onset Dates Condition Status W/U Status Risk SNOMED Code Notes Problem Acute stress reaction with predominately emotional disturbance F43.9 confirmed 76749029 Problem Episode of recurrent major depressive disorder, unspecified depression episode severity F33.9 confirmed 400197423 Problem Anxiety F41.9 confirmed 36335923 Problem Severe episode of recurrent major depressive disorder, without psychotic features F33.2 confirmed 01389838 Problem Complex 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 confirmed 153113397 Problem 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 confirmed 54138652 Problem Pelvic congestion syndrome N94.89 confirmed 49737290 Problem Dysuria R30.0 confirmed 57017565 Problem Seasonal allergies J30.2 confirmed 883267349 Problem Borderline personality disorder F60.3 confirmed 19430990 Problem Irregular periods N92.6 confirmed 32357114 Problem Vaginal bleeding N93.9 confirmed 765398556 Problem Amenorrhea N91.2 confirmed 57983094 Problem Abnormal uterine bleeding N93.9 confirmed 8960899802 9100 Problem Positive test Z32.01 confirmed 237067209 Problem Seasonal allergic rhinitis due to pollen J30.1 confirmed 63567536 Problem Missed period N92.6 confirmed 221335 00 Problem Fever R50.9 confirmed 352768549 Problem Discharge from the vagina N89.8 confirmed 34586538 Problem Mood disorder F39 confirmed 149914 05 Problem Allergic rhinitis, unspecified seasonality, unspecified trigger J30.9 confirmed 74235611 Problem Major depressive disorder, recurrent severe without psychotic features F33.2 confirmed 57532913 Problem Leg paresthesia R20.2 confirmed 298864007 ALLERGIES Allergen (clinical drug ingredient) Drug/Non Drug Allergy documented on EMR Reaction Allergy Type Onset Date Status Rocephin hives Drug Allergy Active IV Contrast rash/reddened skin Non Drug Allergy Active tramadol Tramadol HCl([facility] Code:[address]-54 ) rash Drug Allergy Active ENCOUNTERS from 1996 to 2022-09-11 Encounter Location Date Provider Diagnosis [facility] [address] [facility] [id number] [place] [address] Sep, JILLIAN Hopkins IMMUNIZATIONS Vaccine Route Administration Date Status tdap (history) Unknown October 03, 2016 Administered [...] (history) Unknown Mar 03, 1997 A dministered Hib 4 dose schedule Unknown 1996 Adminis [...] 2018 Administered dtap (history) Unknown 1996 Administered hepatitis a (history) Unknown August 21, 2006 Admini christiane hepatitis a (history) Unknown Mar 05, 2007 Admini christiane mmr-II (history) Unknown July 28, 1997 Adminloulou morales dtap (history) Unknown Mar 03, 1997 Administered dtap (history) Unknown September 22, 1997 Administered dtap (history) Unknown Oct 30, 2001 Administered SOCIAL HISTORY Sex Assigned At : [...] Once a day Active REASON FOR VISIT Would like a call about extraction MEDICAL (GENERAL) HISTORY Type Description Date Medical [...] NIX , 2022-10-17 03:00:00 PM, [address] [facility], [id number], [place], [address], Provider Name:CINDY JOYA, 2023-03-19 01:00:00 PM, [address] [facility], [id number], [place], [address], Insurance Providers Payer Name Payer Address Payer Phone Insured Name Patient Relationship to Insured Coverage Start Date Coverage End Date Subscriber Number Group Number NON [address] [facility] [address] Rosemary Zuniga Self - patient is the insured [id number] [facility] 19 [address] [facility] [address] Rosemary Zuniga Self - patient is the insured [id number] [address] [facility] [address] Rosemary Zuniga Self - patient is the insured [id number] [facility] 19 [address] [facility] [address] Rosemary Zuniga Self - patient is the insured [id number] [facility] 19 [address] [facility] [address] Rosemary Zuniga Self - patient is the insured [id number]
--- OUTSIDE RECORDS SUMMARY | 2023-01-29 05:36 | XMS REPORT ---
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 confirmed 21980749 Problem Anxiety F41.9 confirmed 19985717 Problem Seasonal allergies J30.2 confirmed 222261705 Problem Complex 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 confirmed 105712441 Problem Missed period N92.6 confirmed 531415 00 Problem Fever R50.9 confirmed 447095915 Problem Pelvic congestion syndrome N94.89 confirmed 83767470 Problem Dysuria R30.0 confirmed 14182804 Problem Irregular periods N92.6 confirmed 11315170 Problem Vaginal bleeding N93.9 confirmed 757424130 Problem Mood disorder F39 confirmed 025905 05 Problem Seasonal allergic rhinitis due to pollen J30.1 confirmed 88454058 Problem Borderline personality disorder F60.3 confirmed 88364473 Problem Discharge from the vagina N89.8 confirmed 62812652 Problem Varicose veins of both lower extremities with pain I83.813 confirmed 76996216 Problem Abnormal uterine bleeding N93.9 confirmed 6027070894 9100 Problem Positive test Z32.01 confirmed 739279329 Problem Episode of recurrent major depressive disorder, unspecified depression episode severity F33.9 confirmed 633269659 Problem Allergic rhinitis, unspecified seasonality, unspecified trigger J30.9 confirmed 73301314 Problem Major depressive disorder, recurrent severe without psychotic features F33.2 confirmed 64215964 Problem Leg paresthesia R20.2 confirmed 355387633 Problem Amenorrhea N91.2 confirmed 33014734 ALLERGIES Allergen (clinical drug ingredient) Drug/Non Drug Allergy documented on EMR Reaction Allergy Type Onset Date Status Rocephin hives Drug Allergy Active IV Contrast rash/reddened skin Non Drug Allergy Active tramadol Tramadol HCl([facility] Code:[address]-10 ) rash Drug Allergy Active ENCOUNTERS from 1996 to 2022-10-06 Encounter Location Date Provider Diagnosis [facility] [address] [facility] [id number] [place] [address] Sep, BARRETT Redman IMMUNIZATIONS Vaccine Route Administration Date Status DTaP-Hib [...] 2018 IM Intramuscular Jan 01, 2018 Administered polio [...] PLAN OF TREATMENT Next Appt Details Provider Name:GILBERTO Leslie, 2022-10-07 01:00:00 PM, [address] [facility], [id number], [place], [address], Provider Name:MERISSA NIX , 2022-10-17 03:00:00 PM, [address] [facility], [id number], [place], [address], Provider Name:CINDY JOYA, 2023-03-19 01:00:00 PM, [address] [facility], [id number], [place], [address], Insurance Providers Payer Name Payer Address Payer Phone Insured Name Patient Relationship to Insured Coverage Start Date Coverage End Date Subscriber Number Group Number NON [id number] [facility] [phone] Rosemary Zungia Self - patient is the insured [id number] [facility] 19 [address] [facility] [address] Rosemary Zuniga Self - patient is the insured [id number] [facility] [address] [facility] [address] Rosemary Zuniga Self - patient is the insured [id number] [facility] 19 [address] [facility] [address] Rosemary Zuniga Self - patient is the insured [id number] [address] [place] [address] Rosemary Zuniga Self - patient is the insured [id number]
--- OUTSIDE RECORDS SUMMARY | 2023-01-29 05:36 | XMS REPORT ---
Author Author [facility] ter of [facility] ter of [facility] Address Unknown Phone Unavailable Care Team Providers Care Drill Runner Helper Name Role Phone BARRETT Redman Unavailable PROBLEMS Type Condition ICD9-CM Code [id number] Code Onset Dates Condition Status W/U Status Risk SNOMED Code Notes Problem Acute stress reaction with predominately emotional disturbance F43.9 confirmed 65285897 Problem Episode of recurrent major depressive disorder, unspecified depression episode severity F33.9 confirmed 738203893 Problem Anxiety F41.9 confirmed 04745785 Problem Severe episode of recurrent major depressive disorder, without psychotic features F33.2 confirmed 20697431 Problem Complex 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 confirmed 777382942 Problem 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 confirmed 41547365 Problem Pelvic congestion syndrome N94.89 confirmed 81855209 Problem Dysuria R30.0 confirmed 17080586 Problem Seasonal allergies J30.2 confirmed 448024254 Problem Borderline personality disorder F60.3 confirmed 39455825 Problem Irregular periods N92.6 confirmed 26298832 Problem Vaginal bleeding N93.9 confirmed 312889473 Problem Amenorrhea N91.2 confirmed 71842033 Problem Abnormal uterine bleeding N93.9 confirmed 1521881952 9100 Problem Positive test Z32.01 confirmed 196802043 Problem Seasonal allergic rhinitis due to pollen J30.1 confirmed 42180652 Problem Missed period N92.6 confirmed 186446 00 Problem Fever R50.9 confirmed 117989898 Problem Discharge from the vagina N89.8 confirmed 18255441 Problem Mood disorder F39 confirmed 552257 05 Problem Allergic rhinitis, unspecified seasonality, unspecified trigger J30.9 confirmed 28592415 Problem Major depressive disorder, recurrent severe without psychotic features F33.2 confirmed 84089093 Problem Leg paresthesia R20.2 confirmed 435467712 ALLERGIES Allergen (clinical drug ingredient) Drug/Non Drug Allergy documented on EMR Reaction Allergy Type Onset Date Status Rocephin hives Drug Allergy Active IV Contrast rash/reddened skin Non Drug Allergy Active tramadol Tramadol HCl([facility] Code:[address]-85 ) rash Drug Allergy Active ENCOUNTERS from 1996 to 2022-09-03 Encounter Location Date Provider Diagnosis [facility] [address] [facility] [id number] [place] [address] July, CHARROGERIO Redman Complex 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 [...] Unknown 1996 Adminis tered tdap (history) Unknown October 03, [...] Mar 03, 1997 Administered tdap (history) Unknown June 02, 2018 Administere d tdap (history) Unknown Feb 28, 2021 Administered PRIVATE FLULAVAL QUAD 0.5ML (6 MO AND UP) 2019 IM Intramuscular Dec 30, 2019 Administered dtap (history) Unknown 1996 Administered polio ipv (history) Unknown Oct 30, 2001 Administ sylvie mmr-II (history) Unknown Oct 30, 2001 Administere [...] NIX , 2022-10-17 03:00:00 PM, [address] [facility], [id number], [place], [address], Provider Name:CINDY JOYA, 2023-03-19 01:00:00 PM, [address] [facility], [id number], [place], [address], Follow Up:1-2 WeeksBH Follow Up Insurance Providers Payer Name Payer Address Payer Phone Insured Name Patient Relationship to Insured Coverage Start Date Coverage End Date Subscriber Number Group Number NON [address] [facility] [address] Rosemary Zuniga Self - patient is the insured [id number] [facility] 19 [address] [facility] [address] Rosemary Zuniga Self - patient is the insured [id number] [facility] 19 [address] [facility] [id number] Rosemary Zuniga Self - patient is the insured [id number] [facility] 19 [address] [facility] [phone] Rosemary Zuniga Self - patient is the insured [id number] [facility] 19 [facility] [address] [facility] [address] Rosemary Zuniga Self - patient is the insured [id number]
--- OUTSIDE RECORDS SUMMARY | 2023-01-29 05:36 | XMS REPORT ---
Author Author [facility] ter of 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 confirmed 80008159 Problem Anxiety F41.9 confirmed 07666638 Problem Seasonal allergies J30.2 confirmed 802131175 Problem Complex 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 confirmed 029786558 Problem Missed period N92.6 confirmed 760884 00 Problem Fever R50.9 confirmed 164214122 Problem Pelvic congestion syndrome N94.89 confirmed 32536421 Problem Dysuria R30.0 confirmed 44130762 Problem Irregular periods N92.6 confirmed 28148731 Problem Vaginal bleeding N93.9 confirmed 820022941 Problem Mood disorder F39 confirmed 241433 05 Problem Seasonal allergic rhinitis due to pollen J30.1 confirmed 50553950 Problem Borderline personality disorder F60.3 confirmed 66934960 Problem Discharge from the vagina N89.8 confirmed 70101540 Problem Varicose veins of both lower extremities with pain I83.813 confirmed 12864691 Problem Abnormal uterine bleeding N93.9 confirmed 2238216195 9100 Problem Positive test Z32.01 confirmed 605644993 Problem Episode of recurrent major depressive disorder, unspecified depression episode severity F33.9 confirmed 564098256 Problem Allergic rhinitis, unspecified seasonality, unspecified trigger J30.9 confirmed 59396684 Problem Major depressive disorder, recurrent severe without psychotic features F33.2 confirmed 25427474 Problem Leg paresthesia R20.2 confirmed 642312882 Problem Amenorrhea N91.2 confirmed 49625784 ALLERGIES Allergen (clinical drug ingredient) Drug/Non Drug Allergy documented on EMR Reaction Allergy Type Onset Date Status Rocephin hives Drug Allergy Active IV Contrast rash/reddened skin Non Drug Allergy Active tramadol Tramadol HCl([facility] Code:[address]-54 ) rash Drug Allergy Active ENCOUNTERS from 1996 to 2022-10-25 Encounter Location Date Provider Diagnosis [facility] [address] [facility] [id number] [place] [address] Sep, BARRETT Redman Severe episode of recurrent major [...] (history) Unknown Mar 05, 2007 Admini christiane SOCIAL HISTORY Sex Assigned At [...] Once a day Unknown REASON FOR VISIT [phone] MEDICAL (GENERAL) HISTORY Type Description Date Medical [...] F33.2) PLAN OF TREATMENT Next Appt Details 1-2 Weeks Reason: Follow U p Provider Name:MERISSA NIX , 2023-01-21 05:20:00 PM, [address] [facility], [id number], [place], [address], Provider Name:STEPHY Rose, 2023-03-19 01:00:00 PM, [address] [facility], [id number], [place], [address], Follow Up:1-2 WeeksBH Follow Up Insurance Providers Payer Name Payer Address Payer Phone Insured Name Patient Relationship to Insured Coverage Start Date Coverage End Date Subscriber Number Group Number [facility] 19 [address] [facility] [phone] Rosemary Zuniga Self - patient is the insured [id number] [facility] 19 [address] [facility] [phone] Rosemary Zuniga Self - patient is the insured [id number] NON [address] [facility] [address] [phone] Rosemary Zuniga Self - patient is the insured [id number] [facility] 19 [address] [facility] [address] Rosemary Zuniga Self - patient is the insured [id number] [address] [facility] [address] Rosemary Zuniga Self - patient is the insured [id number]
--- OUTSIDE RECORDS SUMMARY | 2023-01-29 05:36 | XMS REPORT ---
Author Author [facility] ter of [facility] ter of [facility] Address Unknown Phone Unavailable Care Team Providers Care Field Scout Name Role Phone BARRETT Redman Unavailable [phone] PROBLEMS Type Condition ICD9-CM Code [id number] Code Onset Dates Condition Status W/U Status Risk SNOMED Code Notes Problem Acute stress reaction with predominately emotional disturbance F43.9 confirmed 16536204 Problem Episode of recurrent major depressive disorder, unspecified depression episode severity F33.9 confirmed 235982310 Problem Anxiety F41.9 confirmed 02027684 Problem Severe episode of recurrent major depressive disorder, without psychotic features F33.2 confirmed 55742510 Problem Complex 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 confirmed 127879159 Problem 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 confirmed 96267378 Problem Pelvic congestion syndrome N94.89 confirmed 95498514 Problem Dysuria R30.0 confirmed 81015097 Problem Seasonal allergies J30.2 confirmed 486439774 Problem Borderline personality disorder F60.3 confirmed 40200875 Problem Irregular periods N92.6 confirmed 67849325 Problem Vaginal bleeding N93.9 confirmed 184403656 Problem Amenorrhea N91.2 confirmed 65906694 Problem Abnormal uterine bleeding N93.9 confirmed 7321487572 9100 Problem Positive test Z32.01 confirmed 368339486 Problem Seasonal allergic rhinitis due to pollen J30.1 confirmed 91185622 Problem Missed period N92.6 confirmed 343763 00 Problem Fever R50.9 confirmed 944471815 Problem Discharge from the vagina N89.8 confirmed 24088535 Problem Mood disorder F39 confirmed 849241 05 Problem Allergic rhinitis, unspecified seasonality, unspecified trigger J30.9 confirmed 36795602 Problem Major depressive disorder, recurrent severe without psychotic features F33.2 confirmed 14418627 Problem Leg paresthesia R20.2 confirmed 928614110 ALLERGIES Allergen (clinical drug ingredient) Drug/Non Drug Allergy documented on EMR Reaction Allergy Type Onset Date Status Rocephin hives Drug Allergy Active IV Contrast rash/reddened skin Non Drug Allergy Active tramadol Tramadol HCl([facility] Code:[address]-47 ) rash Drug Allergy Active ENCOUNTERS from 1996 to 2022-09-03 Encounter Location Date Provider Diagnosis [facility] [address] [facility] [id number] [place] [address] July, CHARROGERIO Redman Complex 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 and Borderline personality disorder F60.3 IMMUNIZATIONS Vaccine Route Administration Date Status comvax [...] Once a day Active REASON FOR VISIT [id number] MEDICAL (GENERAL) HISTORY Type Description Date Medical [...] Appt Details 1-2 Weeks Reason: Follow U nahum Provider Name:MERISSA NIX , 2022-10-17 03:00:00 PM, [address] [facility], [id number], [place], [address], Provider Name:CINDY JOYA, 2023-03-19 01:00:00 PM, [address] [facility], [id number], [place], [address], Follow Up:1-2 WeeksBH Follow Up Insurance Providers Payer Name Payer Address Payer Phone Insured Name Patient Relationship to Insured Coverage Start Date Coverage End Date Subscriber Number Group Number [facility] 19 [facility] [address] [facility] [address] Rosemary Zuniga Self - patient is the insured [id number] [facility] 19 [address] [facility] [address] Rosemary Zuniga Self - patient is the insured [id number] NON FQHC [facility] 19 [address] [facility] [address] Rosemary Zuniga Self - patient is the insured [id number] [address] [facility] [address] Rosemary Zuniga Self - patient is the insured [id number] NON FQHC [address] [facility] [address] Rosemary Zuniga Self - patient is the insured [id number]
--- OUTSIDE RECORDS SUMMARY | 2023-01-29 05:36 | XMS REPORT ---
Author Author [facility] ter of [facility] ter of 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 confirmed 65162731 Problem Anxiety F41.9 confirmed 78367142 Problem Seasonal allergies J30.2 confirmed 635325362 Problem Complex 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 confirmed 932247966 Problem Missed period N92.6 confirmed 617133 00 Problem Fever R50.9 confirmed 028088456 Problem Pelvic congestion syndrome N94.89 confirmed 57673396 Problem Dysuria R30.0 confirmed 83372435 Problem Irregular periods N92.6 confirmed 85089964 Problem Vaginal bleeding N93.9 confirmed 873103437 Problem Mood disorder F39 confirmed 758295 05 Problem Seasonal allergic rhinitis due to pollen J30.1 confirmed 18958487 Problem Borderline personality disorder F60.3 confirmed 99684221 Problem Discharge from the vagina N89.8 confirmed 36256564 Problem Varicose veins of both lower extremities with pain I83.813 confirmed 56202074 Problem Abnormal uterine bleeding N93.9 confirmed 0186237197 9100 Problem Positive test Z32.01 confirmed 988943088 Problem Episode of recurrent major depressive disorder, unspecified depression episode severity F33.9 confirmed 827554508 Problem Allergic rhinitis, unspecified seasonality, unspecified trigger J30.9 confirmed 78203881 Problem Major depressive disorder, recurrent severe without psychotic features F33.2 confirmed 24515271 Problem Leg paresthesia R20.2 confirmed 204239115 Problem Amenorrhea N91.2 confirmed 57707290 ALLERGIES Allergen (clinical drug ingredient) Drug/Non Drug Allergy documented on EMR Reaction Allergy Type Onset Date Status Rocephin hives Drug Allergy Active IV Contrast rash/reddened skin Non Drug Allergy Active tramadol Tramadol HCl([facility] Code:[address]-96 ) rash Drug Allergy Active ENCOUNTERS from 1996 to 2022-10-20 Encounter Location Date Provider Diagnosis [facility] [place] [address] [facility] [id number], [place] [address] 12 Oct, 2020 CINDY TANG Severe episode of recurrent major depressive disorder, without psychotic features F33.2 IMMUNIZATIONS Vaccine Route Administration Date Status OPV Unknown 1996 Administered OPV Unknown 1996 Administered Hib 4 dose schedule Unknown July 28, 1997 Admini stered Hib 4 dose schedule Unknown 1996 Adminis tered hepatitis b pediatric (history) Unknown August 26 99 Administered hepatitis b pediatric (history) Unknown 1996 Administered DTaP-Hib Unknown 1996 Administered OPV Unknown July 28, 1997 Administered PRIVATE FLULAVAL QUAD 0.5ML (6 MO [...] (history) Unknown July 28, 1997 Administgaro morales dtap (history) Unknown September 22, 1997 Administered dtap (history) Unknown Mar 03, 1997 Administered dtap (history) Unknown 1996 Administered hepatitis a (history) Unknown Mar 05, 2007 Admindamien grande hepatitis a (history) Unknown August 21, 2006 Admini christiane hepatitis b pediatric (history) Unknown 1996 Administered [...] 2023-01-21 05:20:00 PM, [address] [facility], [id number], [place], [address], Provider Name:CINDY JOYA, 2023-03-19 01:00:00 PM, [address] [facility], [id number], [place], [address], Follow Up:prnCheck In Insurance Providers Payer Name Payer Address Payer Phone Insured Name Patient Relationship to Insured Coverage Start Date Coverage End Date Subscriber Number Group Number [facility] 19 [address] [facility] [address] Rosemary Zuniga Self - patient is the insured [id number] NON [address] [facility] [address] Rosemary Zuniga Self - patient is the insured [id number] [facility] [address] [facility] [address] Rosemary Zuniga Self - patient is the insured [id number] [address] [facility] [address] Rosemary Zuniga Self - patient is the insured [id number] [place] [address] [address] [facility] [address] Rosemary Zuniga Self - patient is the insured [id number]
--- OUTSIDE RECORDS SUMMARY | 2023-01-29 05:36 | XMS REPORT ---
Author Author [facility] ter of [facility] ter of 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 confirmed 93691669 Problem Anxiety F41.9 confirmed 13327237 Problem Seasonal allergies J30.2 confirmed 576050355 Problem Complex 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 confirmed 005694073 Problem Missed period N92.6 confirmed 491892 00 Problem Fever R50.9 confirmed 152887116 Problem Pelvic congestion syndrome N94.89 confirmed 90526677 Problem Dysuria R30.0 confirmed 57950644 Problem Irregular periods N92.6 confirmed 25316669 Problem Vaginal bleeding N93.9 confirmed 551037989 Problem Mood disorder F39 confirmed 607104 05 Problem Seasonal allergic rhinitis due to pollen J30.1 confirmed 55506035 Problem Borderline personality disorder F60.3 confirmed 09561465 Problem Discharge from the vagina N89.8 confirmed 02303952 Problem Varicose veins of both lower extremities with pain I83.813 confirmed 44737118 Problem Abnormal uterine bleeding N93.9 confirmed 2762714988 9100 Problem Positive test Z32.01 confirmed 798987552 Problem Episode of recurrent major depressive disorder, unspecified depression episode severity F33.9 confirmed 022353986 Problem Allergic rhinitis, unspecified seasonality, unspecified trigger J30.9 confirmed 20354695 Problem Major depressive disorder, recurrent severe without psychotic features F33.2 confirmed 56404152 Problem Leg paresthesia R20.2 confirmed 487629762 Problem Amenorrhea N91.2 confirmed 73246397 ALLERGIES Allergen (clinical drug ingredient) Drug/Non Drug Allergy documented on EMR Reaction Allergy Type Onset Date Status Rocephin hives Drug Allergy Active IV Contrast rash/reddened skin Non Drug Allergy Active tramadol Tramadol HCl([facility] Code:[address]-94 ) rash Drug Allergy Active ENCOUNTERS from 1996 to 2022-10-18 Encounter Location Date Provider Diagnosis [facility] [address] [facility] [id number] [place] [address] Oct, CINDY TANG IMMUNIZATIONS Vaccine Route Administration Date Status OPV [...] 2019 IM Intramuscular Dec 30, 2019 Administered Hib 4 dose schedule Unknown 1996 Adminis tered PRIVATE FLULAVAL QUAD 0.5ML (6 MO AND UP) 2018 IM Intramuscular Dec 18, 2018 Administered gardasil-4 (history) Unknown June 19, [...] 2020 Administered dtap (history) Unknown 1996 Administered PRIVATE [...] (history) Unknown July 28, 1997 Administgaro morales hepatitis a (history) Unknown Mar 05, [...] Once a day Unknown REASON FOR VISIT FYI MEDICAL (GENERAL) HISTORY Type Description Date Medical History ovarian cysts Medical History pelvic pain Medical History Hemorrhoids, unspecified hemorrh oid type Medical History Vitamin D insufficiency Medical History Dysthymia Medical History pelvic congestion syndrome Medical History currently 2020 Medical History currently due FEB 05 2 023 Surgical History dental surgery Surgical History dilatation and curettage 6 Surgical History x 3 Surgical History wisdom teeth Hospitalization History Complications after C-Se ction 2016 Hospitalization History 2019 MENTAL STATUS No Information PLAN OF TREATMENT Next Appt Details Provider Name:MERISSA NIX , 2023-01-21 05:20:00 PM, [address] [facility], [id number], [place], [address], Provider Name:CINDY JOYA, 2023-03-19 01:00:00 PM, [address] [facility], [id number], [place], [address], Insurance Providers Payer Name Payer Address Payer Phone Insured Name Patient Relationship to Insured Coverage Start Date Coverage End Date Subscriber Number Group Number [facility] 19 [address] [facility] [phone] Rosemary Zuniga Self - patient is the insured [id number] NON [facility] 19 [address] [facility] [address] Rosemary Zuniga Self - patient is the insured [id number] [address] [facility] [phone] Rosemary Zuniga Self - patient is the insured [id number] [facility] 19 [address] [facility] [phone] Rosemary Zuniga Self - patient is the insured [id number] NON [address] [facility] [address] [phone] Rosemary Zuniga Self - patient is the insured [id number]
--- OUTSIDE RECORDS SUMMARY | 2023-01-29 05:36 | XMS REPORT ---
Author Author [facility] ter of [facility] ter of [facility] Address Unknown Phone Unavailable Care Team Providers Care Painter And Body Mechanic Apprentice Name Role Phone CINDY TANG Unavailable PROBLEMS Type Condition ICD9-CM Code TVS26-WL Code Onset Dates Condition Status W/U Status Risk SNOMED Code Notes Problem Acute stress reaction with predominately emotional disturbance F43.9 confirmed 70344389 Problem Episode of recurrent major depressive disorder, unspecified depression episode severity F33.9 confirmed 346200951 Problem Anxiety F41.9 confirmed 93593657 Problem Severe episode of recurrent major depressive disorder, without psychotic features F33.2 confirmed 71432730 Problem Complex 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 confirmed 014569575 Problem 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 confirmed 63175619 Problem Pelvic congestion syndrome N94.89 confirmed 07385270 Problem Dysuria R30.0 confirmed 40645416 Problem Seasonal allergies J30.2 confirmed 272769062 Problem Borderline personality disorder F60.3 confirmed 33733550 Problem Irregular periods N92.6 confirmed 45791590 Problem Vaginal bleeding N93.9 confirmed 846548312 Problem Amenorrhea N91.2 confirmed 10343207 Problem Abnormal uterine bleeding N93.9 confirmed 3452172324 9100 Problem Positive test Z32.01 confirmed 242250077 Problem Seasonal allergic rhinitis due to pollen J30.1 confirmed 23837813 Problem Missed period N92.6 confirmed 280753 00 Problem Fever R50.9 confirmed 213396956 Problem Discharge from the vagina N89.8 confirmed 75327314 Problem Mood disorder F39 confirmed 922517 05 Problem Allergic rhinitis, unspecified seasonality, unspecified trigger J30.9 confirmed 25961781 Problem Major depressive disorder, recurrent severe without psychotic features F33.2 confirmed 37554680 Problem Leg paresthesia R20.2 confirmed 100494252 ALLERGIES Allergen (clinical drug ingredient) Drug/Non Drug Allergy documented on EMR Reaction Allergy Type Onset Date Status Rocephin hives Drug Allergy Active IV Contrast rash/reddened skin Non Drug Allergy Active tramadol Tramadol HCl([facility]NOTE 2] Code:[address]-38 ) rash Drug Allergy Active ENCOUNTERS from 1996 to 2022-09-14 Encounter Location Date Provider Diagnosis [facility] [address] [facility] [id number] [place] [address] Sep, CINDY TANG Severe episode of recurrent [...] a day Active REASON FOR VISIT OCK Initial HAP MEDICAL (GENERAL) HISTORY Type Description Date Medical [...] without psychotic features (ICD-10 - F33.2) Sep, Other Goals and educational tools provided to patient PLAN OF TREATMENT Next Appt Details prn Reason:Check In Provider Name:ARPITA Butler, 2022-09-24 04:00:00 PM, [address] [facility], [id number], [place], [address], Provider Name:MERISSA NIX , 2022-10-17 03:00:00 PM, [address] [facility], [id number], [place], [address], Provider Name:CINDY JOYA, 2023-03-19 01:00:00 PM, [address] [place] [address], [id number], [place], [address], Follow Up:prnCheck In Insurance Providers Payer Name Payer Address Payer Phone Insured Name Patient Relationship to Insured Coverage Start Date Coverage End Date Subscriber Number Group Number [facility] 19 [address] [facility] [phone] Rosemary Zuniga Self - patient is the insured [id number] [facility] 19 [address] [facility] [address] [phone] Rosemary Zuniga Self - patient is the insured [id number] [address] [facility] [phone] Rosemary Zuniga Self - patient is the insured [id number] NON [facility] [address] [facility] [address] Rosemary Zuniga Self - patient is the insured [id number] NON [employer] [facility] 19 [address] [facility] [address] Rosemary Zuniga Self - patient is the insured [id number]
--- OUTSIDE RECORDS SUMMARY | 2023-01-29 05:36 | XMS REPORT ---
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 confirmed 78835189 Problem Anxiety F41.9 confirmed 44208059 Problem Seasonal allergies J30.2 confirmed 923771203 Problem Complex 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 confirmed 827916453 Problem Missed period N92.6 confirmed 191853 00 Problem Fever R50.9 confirmed 160827673 Problem Pelvic congestion syndrome N94.89 confirmed 35964042 Problem Dysuria R30.0 confirmed Problem Irregular periods N92.6 confirmed 21621896 Problem Vaginal bleeding N93.9 confirmed 011360766 Problem Mood disorder F39 confirmed 474731 05 Problem Seasonal allergic rhinitis due to pollen J30.1 confirmed 14524949 Problem Borderline personality disorder F60.3 confirmed 27010278 Problem Discharge from the vagina N89.8 confirmed Problem Varicose veins of both lower extremities with pain I83.813 confirmed 55645279 Problem Abnormal uterine bleeding N93.9 confirmed 3625075632 9100 Problem Positive test Z32.01 confirmed 145017231 Problem Episode of recurrent major depressive disorder, unspecified depression episode severity F33.9 confirmed 955243224 Problem Allergic rhinitis, unspecified seasonality, unspecified trigger J30.9 confirmed 74913522 Problem Major depressive disorder, recurrent severe without psychotic features F33.2 confirmed Problem Leg paresthesia R20.2 confirmed 254710660 Problem Amenorrhea N91.2 confirmed 47210248 ALLERGIES Allergen (clinical drug ingredient) Drug/Non Drug Allergy documented on EMR Reaction Allergy Type Onset Date Status Rocephin hives Drug Allergy Active IV Contrast rash/reddened skin Non Drug Allergy Active tramadol Tramadol HCl([facility] Code:[address]-27 ) rash Drug Allergy Active ENCOUNTERS from 1996 to 2022-09-30 Encounter Location Date Provider Diagnosis [facility] [address] [facility] [id number] [address] Sep, REKHAKenna Юлия Borderline personality disorder F60.3 ; Complex 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 and Severe episode of recurrent major depressive disorder, [...] MG 1 tablet Active REASON FOR VISIT [phone] MEDICAL (GENERAL) HISTORY Type Description Date Medical [...] Complications after C-Se ction 2016 Hospitalization History 2018 MENTAL STATUS No Information ASSESSMENTS Encounter Date Diagnosis Assessment Notes Treatment Notes Treatment Clinical Notes Sep, Borderline personality disorder (ICD-10 - F60.3) Sep, Complex posttraumati c stress disorder (ICD-10 - F43.10) Sep, Severe episode of recurrent major depressive disorder, without psychotic features (ICD-10 - F33.2) PLAN OF TREATMENT Next Appt Details 2 Weeks Reason: Follow Up Provider Name:MERISSA NIX , 2022-10-17 03:00:00 PM, [address] [facility], [id number], [address], Provider Name:CINDY JOYA, 2023-03-19 01:00:00 PM, [address] [facility], [id number], [place], [address], Follow Up:2 WeeksBH Follow Up Insurance Providers Payer Name Payer Address Payer Phone Insured Name Patient Relationship to Insured Coverage Start Date Coverage End Date Subscriber Number Group Number [facility] 19 [address] [facility] [phone] Rosemary Zuniga Self - patient is the insured [id number] [facility] 19 [address] [facility] [address] Rosemary Zuniga Self - patient is the insured [id number] NON [facility] [address] [facility] [phone] Rosemary Zuniga Self - patient is the insured [id number] [address] [facility] [address] Rosemary Zuniga Self - patient is the insured [id number] NON [employer] [facility] 19 [address] [facility] [address] Rosemary Zuniga Self - patient is the insured [id number]
--- OUTSIDE RECORDS SUMMARY | 2023-01-29 05:36 | XMS REPORT ---
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 confirmed 78927421 Problem Anxiety F41.9 confirmed 72054212 Problem Seasonal allergies J30.2 confirmed 237580219 Problem Complex 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 confirmed 146572858 Problem Missed period N92.6 confirmed 955195 00 Problem Fever R50.9 confirmed 712304791 Problem Pelvic congestion syndrome N94.89 confirmed 85153746 Problem Dysuria R30.0 confirmed 70681457 Problem Irregular periods N92.6 confirmed 95505411 Problem Vaginal bleeding N93.9 confirmed 545053027 Problem Mood disorder F39 confirmed 680320 05 Problem Seasonal allergic rhinitis due to pollen J30.1 confirmed 41773087 Problem Borderline personality disorder F60.3 confirmed 61169255 Problem Discharge from the vagina N89.8 confirmed 93624344 Problem Varicose veins of both lower extremities with pain I83.813 confirmed 40447389 Problem Abnormal uterine bleeding N93.9 confirmed 9804455525 9100 Problem Positive test Z32.01 confirmed 601629061 Problem Episode of recurrent major depressive disorder, unspecified depression episode severity F33.9 confirmed 902762953 Problem Allergic rhinitis, unspecified seasonality, unspecified trigger J30.9 confirmed 60245994 Problem Major depressive disorder, recurrent severe without psychotic features F33.2 confirmed 66695702 Problem Leg paresthesia R20.2 confirmed 345748534 Problem Amenorrhea N91.2 confirmed 31570931 ALLERGIES Allergen (clinical drug ingredient) Drug/Non Drug Allergy documented on EMR Reaction Allergy Type Onset Date Status Rocephin hives Drug Allergy Active IV Contrast rash/reddened skin Non Drug Allergy Active tramadol Tramadol HCl([facility] Code:[address]-01 ) rash Drug Allergy Active ENCOUNTERS from 1996 to 2022-10-06 Encounter Location Date Provider Diagnosis [facility] [address] [facility] [id number] [place] [address] Sep, 2020 BARRETT Redman IMMUNIZATIONS Vaccine Route Administration [...] MG 1 tablet Active REASON FOR VISIT FYI only MEDICAL (GENERAL) HISTORY Type Description Date Medical [...] Provider Name:GILBERTO Leslie, 2022-10-07 01:00:00 PM, [address] [facility], [id number], [place], [address], Provider Name:MERISSA NIX , 2022-10-17 03:00:00 PM, [address] [facility], [id number], [place], [address], Provider Name:CINDY JOYA, 2023-03-19 01:00:00 PM, [address] [facility], [id number], [place], [address], Insurance Providers Payer Name Payer Address Payer Phone Insured Name Patient Relationship to Insured Coverage Start Date Coverage End Date Subscriber Number Group Number MELISSA SCIDEMETRIUS SKYGEN 19 [facility] [address] [facility] [address] Rosemary Zuniga Self - patient is the insured [id number] [facility] 19 [address] [facility] [phone] Rosemary Zuniga Self - patient is the insured [id number] [facility] 19 [address] [facility] [phone] Rosemary Zuniga Self - patient is the insured [id number] [facility] 19 [address] [facility] [phone] Rosemary Zuniga Self - patient is the insured [id number] NON [address] [facility] [address] Rosemary Zuniga Self - patient is the insured [id number]
--- OUTSIDE RECORDS SUMMARY | 2023-01-29 05:36 | XMS REPORT ---
Author Author [facility] ter of [facility] ter of [facility] Address Unknown Phone Unavailable Care Team Providers Care Crosstie Inspector Name Role Phone AMOR IRELAND Unavailable PROBLEMS Type Condition ICD9-CM Code RHT96-GL Code Onset Dates Condition Status W/U Status Risk SNOMED Code Notes Problem Acute stress reaction with predominately emotional disturbance F43.9 confirmed 39479270 Problem Episode of recurrent major depressive disorder, unspecified depression episode severity F33.9 confirmed 449305869 Problem Anxiety F41.9 confirmed 35985809 Problem Severe episode of recurrent major depressive disorder, without psychotic features F33.2 confirmed 26063639 Problem Complex 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 confirmed 531322558 Problem 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 confirmed 74183974 Problem Pelvic congestion syndrome N94.89 confirmed 20741734 Problem Dysuria R30.0 confirmed 48462824 Problem Seasonal allergies J30.2 confirmed 323960269 Problem Borderline personality disorder F60.3 confirmed 64756471 Problem Irregular periods N92.6 confirmed 24907117 Problem Vaginal bleeding N93.9 confirmed 769740589 Problem Amenorrhea N91.2 confirmed 45852974 Problem Abnormal uterine bleeding N93.9 confirmed 7768693259 9100 Problem Positive test Z32.01 confirmed 853030770 Problem Seasonal allergic rhinitis due to pollen J30.1 confirmed 68657519 Problem Missed period N92.6 confirmed 834886 00 Problem Fever R50.9 confirmed 293982791 Problem Discharge from the vagina N89.8 confirmed 71310055 Problem Mood disorder F39 confirmed 735565 05 Problem Allergic rhinitis, unspecified seasonality, unspecified trigger J30.9 confirmed 77134924 Problem Major depressive disorder, recurrent severe without psychotic features F33.2 confirmed 97954295 Problem Leg paresthesia R20.2 confirmed 249972290 ALLERGIES Allergen (clinical drug ingredient) Drug/Non Drug Allergy documented on EMR Reaction Allergy Type Onset Date Status Rocephin hives Drug Allergy Active IV Contrast rash/reddened skin Non Drug Allergy Active tramadol Tramadol HCl([facility] Code:[address]-93 ) rash Drug Allergy Active ENCOUNTERS from 1996 to 2022-09-17 Encounter Location Date Provider [facility] [address] [facility] [id number] [place] [address] Sep, CRYSTAL SHU Other specified related conditions, unspecified trimester O26.899 ; Urinary frequency R35.0 and Pelvic and perineal pain R10.2 IMMUNIZATIONS Vaccine Route Administration Date Status comvax [...] a (history) Unknown August 21, 2006 Admini ambernghia hepatitis a (history) Unknown Mar 05, 2007 [...] No Information VITAL SIGNS Height 64 in Sep, Height-cm 162.56 cm Sep, Weight 120 lbs Sep, Weight-kg 54.43 kg Sep, Temperature 98.2 degrees Fahrenheit Sep, Heart Rate 102 bpm Sep, Respiratory Rate 18 bpm Sep, Oximetry 98 % Sep, BMI 20.60 kg/m2 Sep, Blood pressure systolic 122 mmHg Sep, Blood pressure diastolic 74 mmHg Sep, MEDICATIONS Medication SIG (Take, Route, Frequency, Duration) Notes Start Date End Date Status Flonase Not-Taking Azithromycin 250 mg 2 tablet on the day, then 1 tablet daily for 4 days Orally Once a day for 5 day(s) May, Active Benadryl Active ZyrTEC 10 MG 1 tablet Active Miconazole 7 100 mg 1 suppository at bed time Vaginal Once a day for 7 days May, Not-Taking 27-1 MG 1 tablet Orally Once a day Active REASON FOR VISIT scar c/o;'-her scar is hurting and also where it had busted open. The patient is also having urinary frequency and slight burning with urination. She is wanting to be checked for a UTI._ _Andrew Mckinley A MEDICAL (GENERAL) HISTORY Type Description Date Medical [...] Notes Treatment Notes Treatment Clinical Notes Sep, Urinary frequency (ICD-10 - R35.0) Sep, Other specified related conditions, unspecified trimester (ICD-10 - O26.899) Please use vitamin E oil to the affected area. You may look into belly bands for to help with support. Please f/u with OBGYN Sep, Pelvic and perineal pain (ICD-10 - R10.2) Round Ligament Pain: Care Instructions material was published PLAN OF TREATMENT Treatment Notes Assessment Notes Clinical Notes Other specified re lated conditions, unspecified trimester Please use vitamin E oil to the affected area. You may look into belly bands for to help with support. Please f/u with OBGYN Pelvic and perineal pain Round Ligament Pain: Care Instructions material was published Next Appt Details prn Reason: Provider Name:ARPITA Butler, 2022-09-24 04:00:00 PM, [address] [facility], [id number], [place], [address], Provider Name:MERISSA NIX , 2022-10-17 03:00:00 PM, [address] [facility], [id number], [place], [address], Provider Name:CINDY JOYA, 2023-03-19 01:00:00 PM, [address] [facility], [id number], [place], [address], Insurance Providers Payer Name Payer Address Payer Phone Insured Name Patient Relationship to Insured Coverage Start Date Coverage End Date Subscriber Number Group Number [facility] 19 [address] [facility] [address] Rosemary Zuniga Self - patient is the insured [id number] [facility] 19 [address] [facility] [address] Rosemary Zuniga Self - patient is the insured [id number] NON [facility] 19 [address] [facility] [address] Rosemary Zuniga Self - patient is the insured [id number] [facility] 19 [facility] [address] [facility] [phone] Rosemary Zuniga Self - patient is the insured [id number] NON [address] [facility] [address] [phone] Rosemary Zuniga Self - patient is the insured [id number]
--- OUTSIDE RECORDS SUMMARY | 2023-01-29 05:36 | XMS REPORT ---
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 confirmed 75770524 Problem Anxiety F41.9 confirmed 41091200 Problem Seasonal allergies J30.2 confirmed 214555501 Problem Complex 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 confirmed 251240237 Problem Missed period N92.6 confirmed 342336 00 Problem Fever R50.9 confirmed 242591321 Problem Pelvic congestion syndrome N94.89 confirmed 21462580 Problem Dysuria R30.0 confirmed 83881606 Problem Irregular periods N92.6 confirmed 53974527 Problem Vaginal bleeding N93.9 confirmed 618145512 Problem Mood disorder F39 confirmed 696191 05 Problem Seasonal allergic rhinitis due to pollen J30.1 confirmed 40338607 Problem Borderline personality disorder F60.3 confirmed 61846581 Problem Discharge from the vagina N89.8 confirmed 66793411 Problem Varicose veins of both lower extremities with pain I83.813 confirmed 54891781 Problem Abnormal uterine bleeding N93.9 confirmed 8463853653 9100 Problem Positive test Z32.01 confirmed 428683248 Problem Episode of recurrent major depressive disorder, unspecified depression episode severity F33.9 confirmed 143601352 Problem Allergic rhinitis, unspecified seasonality, unspecified trigger J30.9 confirmed 86814734 Problem Major depressive disorder, recurrent severe without psychotic features F33.2 confirmed 88370208 Problem Leg paresthesia R20.2 confirmed 085069463 Problem Amenorrhea N91.2 confirmed 06329692 ALLERGIES Allergen (clinical drug ingredient) Drug/Non Drug Allergy documented on EMR Reaction Allergy Type Onset Date Status Rocephin hives Drug Allergy Active IV Contrast rash/reddened skin Non Drug Allergy Active tramadol Tramadol HCl([facility] Code:[address]-74 ) rash Drug Allergy Active ENCOUNTERS from 1996 to 2022-10-01 Encounter Location Date Provider Diagnosis [facility] [address] [facility] [id number] [place] [address] Sep, DENZELValeri SOSA Dysuria R30.0 and Blood pressure check Z01.30 IMMUNIZATIONS Vaccine Route Administration Date Status OPV [...] 2019 IM Intramuscular Dec 18, 2018 Administered PRIVATE FLULAVAL QUAD 0.5ML (6 MO AND UP) 2019 IM Intramuscular Jan 01, 2018 Administered tdap (history) Unknown Feb 28, [...] 05, 2007 Admini stered dtap (history) Unknown September 22, 1997 Administered [...] in Sep, Height-cm 162.56 cm Sep, Weight 125.4 lbs Sep, Weight-kg 56.88 kg Sep, Temperature 98.9 degrees Fahrenheit Sep, Heart Rate 102 bpm Sep, Respiratory Rate 20 bpm Sep, Oximetry 99 % Sep, BMI 21.52 kg/m2 Sep, Blood pressure systolic 128 mmHg Sep, Blood pressure diastolic 58 mmHg Sep, MEDICATIONS Medication SIG (Take, Route, Fr equency, Duration) Notes Start Date End Date Status 27-1 MG 1 tablet Orally Once a day Active ZyrTEC 10 MG 1 tablet Active REASON FOR VISIT nausea, fatigue--pt stated that her symptoms started 3-4 days ago, last night patient stated that when she was laying in bed she felt her heart beat from her head to her feet--Shiloh sheth MA verbally verified MEDICAL (GENERAL) HISTORY [...] Notes Treatment Notes Treatment Clinical Notes Sep, Dysuria (ICD-10 - R30.0) Painful Urination (Dysuria): Care Instructions material was published, Painful Urination (Dysuria): Care Instructions material was published Sep, Blood pressure check (ICD-10 - Z01.30) All vital signs are normal in office, physcial exam normal. If possibel take BP when you are having symptoms and follow up with OBGYN. PLAN OF TREATMENT Treatment Notes Assessment Notes Clinical Notes Dysuria Painful Urination (D ysuria): Care Instructions material was published, Painful Urination (Dysuria): Care Instructions material was published Blood pressure check All vital signs are normal in office, physcial exam normal. If possibel take BP when you are having symptoms and follow up with OBGYN. Next Appt Details prn Reason: Provider Name:MERISSA Howard NIX , 2022-10-17 03:00:00 PM, [address] [facility], [id number], [place], [address], Provider Name:CINDY PARKER TOAN, 2023-03-19 01:00:00 PM, [address] [facility], [id number], [place], [address], Insurance Providers Payer Name Payer Address Payer Phone Insured Name Patient Relationship to Insured Coverage Start Date Coverage End Date Subscriber Number Group Number NON [address] [facility] [address] Rosemary Zuniga Self - patient is the insured [id number] [address] [facility] [address] Rosemary Zuniga Self - patient is the insured [id number] [facility] 19 [address] [facility] [address] Rosemary Zuniga Self - patient is the insured [id number] [facility] 19 [address] [facility] [address] Rosemary Zuniga Self - patient is the insured [id number] [facility] 19 [address] [facility] [address] Rosemary Zuniga Self - patient is the insured [id number]
--- OUTSIDE RECORDS SUMMARY | 2023-01-29 05:36 | XMS REPORT ---
Author Author [facility] ter of [facility] ter of [facility] Address Unknown Phone Unavailable Care Team Providers Care Experimental Physicist Name Role Phone JULIO ZAMORA Unavailable PROBLEMS Type Condition ICD9-CM Code [id number] Code Onset Dates Condition Status W/U Status Risk SNOMED Code Notes Problem Acute stress reaction with predominately emotional disturbance F43.9 confirmed 62089407 Problem Episode of recurrent major depressive disorder, unspecified depression episode severity F33.9 confirmed 941759528 Problem Anxiety F41.9 confirmed 43243054 Problem Severe episode of recurrent major depressive disorder, without psychotic features F33.2 confirmed 33512058 Problem Complex 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 confirmed 178974997 Problem 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 confirmed 64797321 Problem Pelvic congestion syndrome N94.89 confirmed 08221755 Problem Dysuria R30.0 confirmed 77634468 Problem Seasonal allergies J30.2 confirmed 738624035 Problem Borderline personality disorder F60.3 confirmed 57326735 Problem Irregular periods N92.6 confirmed 51784572 Problem Vaginal bleeding N93.9 confirmed 289174362 Problem Amenorrhea N91.2 confirmed 41046909 Problem Abnormal uterine bleeding N93.9 confirmed 0811438159 9100 Problem Positive test Z32.01 confirmed 127436618 Problem Seasonal allergic rhinitis due to pollen J30.1 confirmed 14183631 Problem Missed period N92.6 confirmed 312781 00 Problem Fever R50.9 confirmed 728450703 Problem Discharge from the vagina N89.8 confirmed 81276278 Problem Mood disorder F39 confirmed 430281 05 Problem Allergic rhinitis, unspecified seasonality, unspecified trigger J30.9 confirmed 42061247 Problem Major depressive disorder, recurrent severe without psychotic features F33.2 confirmed 40942070 Problem Leg paresthesia R20.2 confirmed 427795182 ALLERGIES Allergen (clinical drug ingredient) Drug/Non Drug Allergy documented on EMR Reaction Allergy Type Onset Date Status Rocephin hives Drug Allergy Active IV Contrast rash/reddened skin Non Drug Allergy Active tramadol Tramadol HCl([facility] Code:[address]-71 ) rash Drug Allergy Active ENCOUNTERS from 1996 to 2022-09-11 Encounter Location Date Provider Diagnosis [facility] [address] [facility] [id number] [place] [address] Sep, JULIO ZAMORA IMMUNIZATIONS Vaccine Route Administration Date Status comvax [...] Once a day Active REASON FOR VISIT TE w/N2O MEDICAL (GENERAL) HISTORY Type Description Date Medical [...] Details Provider Name:ARPITA Butler, 2022-09-24 04:00:00 PM, [address] [place] [address], [id number], [place], [address], Provider Name:MERISSA NIX , 2022-10-17 03:00:00 PM, [address] [place] [address], [id number], [place], [address], Provider Name:CINDY JOYA, 2023-03-19 01:00:00 PM, [address] [place] [address], [id number], [place], [address], Insurance Providers Payer Name Payer Address Payer Phone Insured Name Patient Relationship to Insured Coverage Start Date Coverage End Date Subscriber Number Group Number [facility] 19 [address] [facility] [address] Rosemary Zuniga Self - patient is the insured [id number] [address] [facility] [facility] [address] Rosemary Zuniga Self - patient is the insured [id number] [facility] 19 [address] [facility] [address] Rosemary Zuniag Self - patient is the insured [id number] NON [employer] [address] [facility] [address] Rosemary Zuniga Self - patient is the insured [id number] NON FQHC [facility] 19 [address] [facility] [address] Roseamry Zuniga Self - patient is the insured [id number]
--- OUTSIDE RECORDS SUMMARY | 2023-01-29 05:36 | XMS REPORT ---
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 confirmed 24547083 Problem Anxiety F41.9 confirmed 40350025 Problem Seasonal allergies J30.2 confirmed 326988489 Problem Complex 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 confirmed 025683879 Problem Missed period N92.6 confirmed 992311 00 Problem Fever R50.9 confirmed 935015370 Problem Pelvic congestion syndrome N94.89 confirmed 41680628 Problem Dysuria R30.0 confirmed 56151685 Problem Irregular periods N92.6 confirmed 06879860 Problem Vaginal bleeding N93.9 confirmed 885155559 Problem Mood disorder F39 confirmed 161771 05 Problem Seasonal allergic rhinitis due to pollen J30.1 confirmed 30250764 Problem Borderline personality disorder F60.3 confirmed 36068715 Problem Discharge from the vagina N89.8 confirmed 49708690 Problem Varicose veins of both lower extremities with pain I83.813 confirmed 27861090 Problem Abnormal uterine bleeding N93.9 confirmed 6612548934 9100 Problem Positive test Z32.01 confirmed 163366508 Problem Episode of recurrent major depressive disorder, unspecified depression episode severity F33.9 confirmed 501734104 Problem Allergic rhinitis, unspecified seasonality, unspecified trigger J30.9 confirmed 85862568 Problem Major depressive disorder, recurrent severe without psychotic features F33.2 confirmed 77529288 Problem Leg paresthesia R20.2 confirmed 434982099 Problem Amenorrhea N91.2 confirmed 36325382 ALLERGIES Allergen (clinical drug ingredient) Drug/Non Drug Allergy documented on EMR Reaction Allergy Type Onset Date Status Rocephin hives Drug Allergy Active IV Contrast rash/reddened skin Non Drug Allergy Active tramadol Tramadol HCl([facility] Code:[address]-82 ) rash Drug Allergy Active ENCOUNTERS from 1996 to 2022-10-13 Encounter Location Date Provider Diagnosis [facility] [address] [facility] [id number] [place] [address] Oct, CINDY TANG Severe episode of recurrent major depressive disorder, without psychotic features F33.2 IMMUNIZATIONS Vaccine Route Administration Date Status tdap (history) Unknown June 02, 2018 Administere d tdap (history) Unknown Feb 28, 2021 Administered PRIVATE FLULAVAL QUAD 0.5ML (6 MO AND UP) 2020 IM Intramuscular Dec 21, 2020 Administered PRIVATE FLULAVAL QUAD 0.5ML (6 MO AND UP) 2019 IM Intramuscular Dec 30, 2019 Administered gardasil-4 (history) Unknown August 21, 2006 Adminis tered gardasil-4 (history) Unknown Mar 05, 2007 Adminis tered comvax hib/hep b (history) Unknown Mar 03, 1997 A dministered tdap (history) Unknown October 03, 2016 Administered Hib 4 dose schedule Unknown 1996 [...] polio ipv (history) Unknown Oct 30, 2001 Adminclarissa mercer dtap (history) Unknown 1996 Administered dtap (history) Unknown Mar 03, 1997 Administered hepatitis a (history) Unknown August 21, 2006 Admini christiane hepatitis a (history) Unknown Mar 05, 2007 Admindamien grande mmr-II (history) Unknown July 28, 1997 Adminloulou red dtap (history) Unknown September 22, 1997 Administered dtap (history) Unknown Oct 30, 2001 Administered gardasil-4 (history) Unknown June 19, 2006 Admin istered SOCIAL HISTORY Sex Assigned At : Social [...] , 2022-10-17 03:00:00 PM, [address] [facility], [id number], [place], [address], Provider Name:CINDY JOYA, 2023-03-19 01:00:00 PM, [address] [facility], [id number], [place], [address], Follow Up:prnCheck In Insurance Providers Payer Name Payer Address Payer Phone Insured Name Patient Relationship to Insured Coverage Start Date Coverage End Date Subscriber Number Group Number NON [address] [facility] [address] Rosemary Zuniga Self - patient is the insured [id number] [facility] 19 [facility] [address] [facility] [address] Rosemary Zuniga Self - patient is the insured [id number] NON [facility] 19 [address] [facility] [address] Rosemary Zuniga Self - patient is the insured [id number] [facility] 19 [address] [facility] [phone] Rosemary Zuniga Self - patient is the insured [id number] [facility] 19 [address] [facility] [phone] Rosemary Zuniga Self - patient is the insured [id number]
--- OUTSIDE RECORDS SUMMARY | 2023-01-29 05:36 | XMS REPORT ---
Author Author [facility] ter of [facility] ter [facility] Address Unknown Phone Unavailable Care Team Providers Care River Pilot Name Role Phone BARRETT Redman Unavailable PROBLEMS ALLERGIES ENCOUNTERS from 1996 to 2022-09-03 IMMUNIZATIONS SOCIAL HISTORY No smoking Hx information available REASON FOR REFERRAL No Information MEDICATIONS REASON FOR VISIT MEDICAL (GENERAL) HISTORY MENTAL STATUS ASSESSMENTS PLAN OF TREATMENT Insurance Providers
--- OUTSIDE RECORDS SUMMARY | 2023-01-29 05:36 | XMS REPORT ---
Author Author [facility] ter of 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 confirmed 14209014 Problem Anxiety F41.9 confirmed 13811634 Problem Seasonal allergies J30.2 confirmed 509759358 Problem Complex 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 confirmed 961766629 Problem Missed period N92.6 confirmed 405252 00 Problem Fever R50.9 confirmed 246450048 Problem Pelvic congestion syndrome N94.89 confirmed 48928770 Problem Dysuria R30.0 confirmed 65395305 Problem Irregular periods N92.6 confirmed 14767032 Problem Vaginal bleeding N93.9 confirmed 798431185 Problem Mood disorder F39 confirmed 348918 05 Problem Seasonal allergic rhinitis due to pollen J30.1 confirmed 09749914 Problem Borderline personality disorder F60.3 confirmed 63333080 Problem Discharge from the vagina N89.8 confirmed 79629453 Problem Varicose veins of both lower extremities with pain I83.813 confirmed 38457521 Problem Abnormal uterine bleeding N93.9 confirmed 9497276003 9100 Problem Positive test Z32.01 confirmed 178076879 Problem Episode of recurrent major depressive disorder, unspecified depression episode severity F33.9 confirmed 812508284 Problem Allergic rhinitis, unspecified seasonality, unspecified trigger J30.9 confirmed 55698864 Problem Major depressive disorder, recurrent severe without psychotic features F33.2 confirmed 16217771 Problem Leg paresthesia R20.2 confirmed 818309487 Problem Amenorrhea N91.2 confirmed 14554382 ALLERGIES Allergen (clinical drug ingredient) Drug/Non Drug Allergy documented on EMR Reaction Allergy Type Onset Date Status Rocephin hives Drug Allergy Active IV Contrast rash/reddened skin Non Drug Allergy Active tramadol Tramadol HCl([facility] Code:[address]-60 ) rash Drug Allergy Active ENCOUNTERS from 1996 to 2022-09-23 Encounter Location Date Provider Diagnosis [facility] [address] [facility] [id number] [place] [address] Sep, CINDY TANG Severe episode of recurrent major depressive disorder, without psychotic features F33.2 IMMUNIZATIONS Vaccine Route Administration Date Status gardasil-4 (history) Unknown June 19, 2006 Admin istered dtap (history) Unknown Oct 30, 2001 Administered PRIVATE FLULAVAL QUAD 0.5ML (6 MO AND UP) 2018 IM Intramuscular Jan 01, 2018 Administered hepatitis a (history) Unknown Mar 05, 2007 Admini stered tdap (history) Unknown June 02, [...] 2019 IM Intramuscular Dec 30, 2019 Administered mmr-II (history) Unknown July 28, 1997 [...] 2020 IM Intramuscular Dec 21, 2020 Administered DTaP-Hib Unknown 1996 Administered OPV Unknown [...] Provider Name:ARPITA Butler, 2022-09-24 04:00:00 PM, [address] [facility], [id number], [place], [address], Provider Name:MERISSA NIX , 2022-10-17 03:00:00 PM, [facility], [id number], [place], [address], Provider Name:CINDY JOYA, 2023-03-19 01:00:00 PM, [address] [facility], [id number], [place], [address], Follow Up:prnCheck In Insurance Providers Payer Name Payer Address Payer Phone Insured Name Patient Relationship to Insured Coverage Start Date Coverage End Date Subscriber Number Group Number MELISSA GRANGER [facility] [address] [facility] [address] Rosemary Zuniga Self - patient is the insured [id number] [place] [address] [address] [facility] [address] Rosemary Zuniga Self - patient is the insured [id number] NON FQHC [facility] 19 [address] [facility] [address] Rosemary Zuniga Self - patient is the insured [id number] [facility] 19 [address] [facility] [phone] Rosemary Zuniga Self - patient is the insured [id number] NON FQHC [address] [facility] [address] Rosemary Zuniga Self - patient is the insured [id number]
--- OUTSIDE RECORDS SUMMARY | 2023-01-29 05:36 | XMS REPORT ---
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 confirmed 45386182 Problem Anxiety F41.9 confirmed 94761715 Problem Seasonal allergies J30.2 confirmed 320700795 Problem Complex 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 confirmed 974432478 Problem Missed period N92.6 confirmed 246436 00 Problem Fever R50.9 confirmed 535800964 Problem Pelvic congestion syndrome N94.89 confirmed 86785571 Problem Dysuria R30.0 confirmed 20423882 Problem Irregular periods N92.6 confirmed 47999161 Problem Vaginal bleeding N93.9 confirmed 624840308 Problem Mood disorder F39 confirmed 381646 05 Problem Seasonal allergic rhinitis due to pollen J30.1 confirmed 49625745 Problem Borderline personality disorder F60.3 confirmed 32606838 Problem Discharge from the vagina N89.8 confirmed 64728377 Problem Varicose veins of both lower extremities with pain I83.813 confirmed 54360107 Problem Abnormal uterine bleeding N93.9 confirmed 5470064110 9100 Problem Positive test Z32.01 confirmed 073780790 Problem Episode of recurrent major depressive disorder, unspecified depression episode severity F33.9 confirmed 092585390 Problem Allergic rhinitis, unspecified seasonality, unspecified trigger J30.9 confirmed 84106038 Problem Major depressive disorder, recurrent severe without psychotic features F33.2 confirmed 49229998 Problem Leg paresthesia R20.2 confirmed 011809788 Problem Amenorrhea N91.2 confirmed 51955484 ALLERGIES Allergen (clinical drug ingredient) Drug/Non Drug Allergy documented on EMR Reaction Allergy Type Onset Date Status Rocephin hives Drug Allergy Active IV Contrast rash/reddened skin Non Drug Allergy Active tramadol Tramadol HCl([facility] Code:[address]-33 ) rash Drug Allergy Active ENCOUNTERS from 1996 to 2022-09-17 Encounter Location Date Provider Diagnosis [facility] [address] [facility] [id number] [place] [address] Sep, CINDY TANG Severe episode of recurrent [...] Provider Name:ARPITA Butler, 2022-09-24 04:00:00 PM, [address] [facility], [id number], [place], [address], Provider Name:MERISSA NIX , 2022-10-17 03:00:00 PM, [address] [place] [address], [id number], [place], [address], Provider Name:CINDY JOAY, 2023-03-19 01:00:00 PM, [address] [facility], [id number], [place], [address], Follow Up:prnCheck In Insurance Providers Payer Name Payer Address Payer Phone Insured Name Patient Relationship to Insured Coverage Start Date Coverage End Date Subscriber Number Group Number MELISSA GRANGER [facility] [address] [facility] [address] Rosemary Zuniga Self - patient is the insured [id number] [place] [address] [address] [facility] [address] Rosemary Zuniga Self - patient is the insured [id number] [facility] 19 [address] [facility] [address] [phone] Rosemary Zuniga Self - patient is the insured [id number] NON [employer] [address] [facility] [address] Rosemary Zuniga Self - patient is the insured [id number] NON FQ[facility] 19 [address] [facility] [address] Rosemary Zuniga Self - patient is the insured [id number]
--- OUTSIDE RECORDS SUMMARY | 2023-01-29 05:36 | XMS REPORT ---
Author Author [facility] ter of [facility] ter of [facility] Address Unknown Phone Unavailable Care Team Providers Care Rack Room Worker Name Role Phone CINDY TANG Unavailable [phone] PROBLEMS Type Condition ICD9-CM Code XAR94-HU Code Onset Dates Condition Status W/U Status Risk SNOMED Code Notes Problem Acute stress reaction with predominately emotional disturbance F43.9 confirmed 64774843 Problem Episode of recurrent major depressive disorder, unspecified depression episode severity F33.9 confirmed 200185174 Problem Anxiety F41.9 confirmed 13809271 Problem Severe episode of recurrent major depressive disorder, without psychotic features F33.2 confirmed 88411444 Problem Complex 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 confirmed 183761609 Problem 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 confirmed 02086387 Problem Pelvic congestion syndrome N94.89 confirmed 26550380 Problem Dysuria R30.0 confirmed 09680556 Problem Seasonal allergies J30.2 confirmed 592486917 Problem Borderline personality disorder F60.3 confirmed 65133894 Problem Irregular periods N92.6 confirmed 22751816 Problem Vaginal bleeding N93.9 confirmed 518972237 Problem Amenorrhea N91.2 confirmed 64052884 Problem Abnormal uterine bleeding N93.9 confirmed 0586188601 9100 Problem Positive test Z32.01 confirmed 847304518 Problem Seasonal allergic rhinitis due to pollen J30.1 confirmed 11642502 Problem Missed period N92.6 confirmed 365527 00 Problem Fever R50.9 confirmed 830623411 Problem Discharge from the vagina N89.8 confirmed 85250272 Problem Mood disorder F39 confirmed 191601 05 Problem Allergic rhinitis, unspecified seasonality, unspecified trigger J30.9 confirmed 65981593 Problem Major depressive disorder, recurrent severe without psychotic features F33.2 confirmed 11605921 Problem Leg paresthesia R20.2 confirmed 182291642 ALLERGIES Allergen (clinical drug ingredient) Drug/Non Drug Allergy documented on EMR Reaction Allergy Type Onset Date Status Rocephin hives Drug Allergy Active IV Contrast rash/reddened skin Non Drug Allergy Active tramadol Tramadol HCl([facility] Code:[address]-54 ) rash Drug Allergy Active ENCOUNTERS from 1996 to 2022-09-11 Encounter Location Date Provider Diagnosis [facility] [address] [facility] [id number] [place] [address] Sep, CINDY TANG IMMUNIZATIONS Vaccine Route Administration Date [...] Once a day Active REASON FOR VISIT broken tooth MEDICAL (GENERAL) HISTORY Type Description Date Medical [...] Details Provider Name:ARPITA Butler, 2022-09-24 04:00:00 PM, [address] [place] [address], [id number], [place], [address], Provider Name:MERISSA NIX , 2022-10-17 03:00:00 PM, [address] [place] [address], [id number], [place], [address], Provider Name:CINDY JOYA, 2023-03-19 01:00:00 PM, [address] [facility], [id number], [place], [address], Insurance Providers Payer Name Payer Address Payer Phone Insured Name Patient Relationship to Insured Coverage Start Date Coverage End Date Subscriber Number Group Number NON [address] [facility] [address] Rosemary Zuniga Self - patient is the insured [id number] [place] [address] [address] [facility] [address] Rosemary Zuniga Self - patient is the insured [id number] [employer] [address] [facility] [address] [facility] [address] Rosemary Zuniga Self - patient is the insured [id number] [facility] 19 [address] [facility] [address] Rosemary Zuniga Self - patient is the insured [id number] [facility] 19 [address] [facility] [address] Rosemary Zuniga Self - patient is the insured [id number]
--- OUTSIDE RECORDS SUMMARY | 2023-01-29 05:36 | XMS REPORT ---
Author Author [facility] ter of [facility] ter of [facility] Address Unknown Phone Unavailable Care Team Providers Care Cross Tie Cutter Name Role Phone BARRETT Redman Unavailable PROBLEMS Type Condition ICD9-CM Code UTT21-BC Code Onset Dates Condition Status W/U Status Risk SNOMED Code Notes Problem Acute stress reaction with predominately emotional disturbance F43.9 confirmed 07189356 Problem Episode of recurrent major depressive disorder, unspecified depression episode severity F33.9 confirmed 946745310 Problem Anxiety F41.9 confirmed 60407948 Problem Severe episode of recurrent major depressive disorder, without psychotic features F33.2 confirmed 80229969 Problem Complex 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 confirmed 117020577 Problem 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 confirmed 63113432 Problem Pelvic congestion syndrome N94.89 confirmed 27807535 Problem Dysuria R30.0 confirmed 64433229 Problem Seasonal allergies J30.2 confirmed 705404154 Problem Borderline personality disorder F60.3 confirmed 95264034 Problem Irregular periods N92.6 confirmed 08611004 Problem Vaginal bleeding N93.9 confirmed 548785853 Problem Amenorrhea N91.2 confirmed 58620853 Problem Abnormal uterine bleeding N93.9 confirmed 7001620546 9100 Problem Positive test Z32.01 confirmed 922293786 Problem Seasonal allergic rhinitis due to pollen J30.1 confirmed 99782297 Problem Missed period N92.6 confirmed 506971 00 Problem Fever R50.9 confirmed 733960502 Problem Discharge from the vagina N89.8 confirmed 20110090 Problem Mood disorder F39 confirmed 106464 05 Problem Allergic rhinitis, unspecified seasonality, unspecified trigger J30.9 confirmed 54050869 Problem Major depressive disorder, recurrent severe without psychotic features F33.2 confirmed 34720557 Problem Leg paresthesia R20.2 confirmed 366324522 ALLERGIES Allergen (clinical drug ingredient) Drug/Non Drug Allergy documented on EMR Reaction Allergy Type Onset Date Status Rocephin hives Drug Allergy Active IV Contrast rash/reddened skin Non Drug Allergy Active tramadol Tramadol HCl([facility] Code:[address]-78 ) rash Drug Allergy Active ENCOUNTERS from 1996 to 2022-09-13 Encounter Location Date Provider Diagnosis [facility] [address] [facility] [id number] [place] [address] Aug, BARRETT Redman Borderline personality disorder F60.3 ; Complex posttraumatic [...] Unknown 1996 Adminis tered gardasil-4 (history) Unknown Mar 05, [...] Dec 18, 2018 Administered dtap (history) Unknown September 22, 1997 Administered dtap (history) Unknown Mar 03, 1997 Administered dtap (history) Unknown 1996 Administered polio ipv (history) Unknown Oct 30, 2001 Administ ered gardasil-4 (history) Unknown August 21, 2006 Adminis marcy gardasil-4 (history) Unknown June 19, 2006 Admin istered dtap (history) Unknown Oct 30, 2001 Administered mmr-II (history) Unknown Oct 30, 2001 [...] Aug, Borderline personality disorder (ICD-10 - F60.3) Aug, Severe episode of recurrent major depressive disorder, without psychotic features (ICD-10 - F33.2) PLAN OF TREATMENT Next Appt Details 1-2 Weeks Reason: Levi U p Provider Name:ARPITA Butler, 2022-09-24 04:00:00 PM, [address] [facility], [id number], [place], [address], Provider Name:MERISSA NIX , 2022-10-17 03:00:00 PM, [address] [facility], [id number], [place], [address], Provider Name:CINDY JOYA, 2023-03-19 01:00:00 PM, [address] [facility], [id number], [place], [address], Follow Up:1-2 WeeksBH Follow Up Insurance Providers Payer Name Payer Address Payer Phone Insured Name Patient Relationship to Insured Coverage Start Date Coverage End Date Subscriber Number Group Number [facility] 19 [address] [facility] [address] [phone] Rosemary Zuniga Self - patient is the insured [id number] [address] [facility] [address] [phone] Rosemary Zuniga Self - patient is the insured [id number] NON [employer] [address] [facility] [address] Rosemary Zuniga Self - patient is the insured [id number] [facility] 19 [address] [facility] [address] Rosemary Zuniga Self - patient is the insured [id number] [facility] 19 [address] [facility] [phone] Rosemary Zuniga Self - patient is the insured [id number]
--- OUTSIDE RECORDS SUMMARY | 2023-01-29 05:36 | XMS REPORT ---
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 confirmed 03111391 Problem Anxiety F41.9 confirmed 97948211 Problem Seasonal allergies J30.2 confirmed 243637250 Problem Complex 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 confirmed 234982748 Problem Missed period N92.6 confirmed 173556 00 Problem Fever R50.9 confirmed 194643725 Problem Pelvic congestion syndrome N94.89 confirmed 98073713 Problem Dysuria R30.0 confirmed 14725431 Problem Irregular periods N92.6 confirmed 94942666 Problem Vaginal bleeding N93.9 confirmed 503371609 Problem Mood disorder F39 confirmed 793989 05 Problem Seasonal allergic rhinitis due to pollen J30.1 confirmed 40085360 Problem Borderline personality disorder F60.3 confirmed 46297060 Problem Discharge from the vagina N89.8 confirmed 21144303 Problem Varicose veins of both lower extremities with pain I83.813 confirmed 41181350 Problem Abnormal uterine bleeding N93.9 confirmed 4351350993 9100 Problem Positive test Z32.01 confirmed 319273186 Problem Episode of recurrent major depressive disorder, unspecified depression episode severity F33.9 confirmed 002295156 Problem Allergic rhinitis, unspecified seasonality, unspecified trigger J30.9 confirmed 10176059 Problem Major depressive disorder, recurrent severe without psychotic features F33.2 confirmed 15840161 Problem Leg paresthesia R20.2 confirmed 404973433 Problem Amenorrhea N91.2 confirmed 80526973 ALLERGIES Allergen (clinical drug ingredient) Drug/Non Drug Allergy documented on EMR Reaction Allergy Type Onset Date Status Rocephin hives Drug Allergy Active IV Contrast rash/reddened skin Non Drug Allergy Active tramadol Tramadol HCl([facility] Code:[address]-48 ) rash Drug Allergy Active ENCOUNTERS from 1996 to 2022-10-26 Encounter Location Date Provider Diagnosis [facility] [address] [facility] [id number] [place] [address] Sep, BARRETT shahJAYLINRUDDY Anxiety F41.9 ; Severe episode of [...] (history) Unknown Mar 03, 1997 A dministered DTaP-Hib Unknown 1996 Administered OPV Unknown July [...] Once a day Unknown REASON FOR VISIT Phone visit MEDICAL (GENERAL) HISTORY Type Description Date Medical [...] N [facility] [id number], [address], Provider Name:STEPHY Rose 2023-03-19 01:00:00 PM, [address] [facility], [id number], [address], Follow Up:1-2 WeeksBH Follow Up Insurance Providers Payer Name Payer Address Payer Phone Insured Name Patient Relationship to Insured Coverage Start Date Coverage End Date Subscriber Number Group Number MELISSA ELKIN [address] [employer] [facility] [address] Rosemary Zuniga Self - patient is the insured [id number] NON [address] [employer] [facility] [address] Rosemary Zuniga Self - patient is the insured [id number] [facility] 19 [address] [facility] [address] [phone] Rosemary Zuniga Self - patient is the insured [id number] [facility] 19 [address] [facility] [address] [phone] Rosemary Zuniga Self - patient is the insured [id number] [facility] 19 [address] [facility] [address] Rosemary Zuniga Self - patient is the insured [id number]
--- OUTSIDE RECORDS SUMMARY | 2023-01-29 05:36 | XMS REPORT ---
Author Author [facility] ter of [facility] ter of [facility] Address Unknown Phone Unavailable Care Team Providers Care Management Retail Intern Name Role Phone DIEUDONNE Malik Unavailable Unavailable PROBLEMS Type Condition ICD9-CM Code HGT54-DN Code Onset Dates Condition Status W/U Status Risk SNOMED Code Notes Problem Severe episode of recurrent major depressive disorder, without psychotic features F33.2 confirmed 71965578 Problem Acute stress reaction with predominately emotional disturbance F43.9 confirmed 99388053 Problem 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 confirmed 73285538 Problem Anxiety F41.9 confirmed 39418570 Problem Seasonal allergies J30.2 confirmed 633507918 Problem Complex 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 confirmed 936945657 Problem Missed period N92.6 confirmed 742044 00 Problem Fever R50.9 confirmed 657357552 Problem Pelvic congestion syndrome N94.89 confirmed 18905263 Problem Dysuria R30.0 confirmed 03746493 Problem Irregular periods N92.6 confirmed 90407645 Problem Vaginal bleeding N93.9 confirmed 038446788 Problem Mood disorder F39 confirmed 813889 05 Problem Seasonal allergic rhinitis due to pollen J30.1 confirmed 15064342 Problem Borderline personality disorder F60.3 confirmed 07140088 Problem Discharge from the vagina N89.8 confirmed 54366670 Problem Varicose veins of both lower extremities with pain I83.813 confirmed 06586195 Problem Abnormal uterine bleeding N93.9 confirmed 2127868671 9100 Problem Positive test Z32.01 confirmed 940199692 Problem Episode of recurrent major depressive disorder, unspecified depression episode severity F33.9 confirmed 081310020 Problem Allergic rhinitis, unspecified seasonality, unspecified trigger J30.9 confirmed 47978296 Problem Major depressive disorder, recurrent severe without psychotic features F33.2 confirmed 60967019 Problem Leg paresthesia R20.2 confirmed 897815923 Problem Amenorrhea N91.2 confirmed 44779388 ALLERGIES Allergen (clinical drug ingredient) Drug/Non Drug Allergy documented on EMR Reaction Allergy Type Onset Date Status Rocephin hives Drug Allergy Active IV Contrast rash/reddened skin Non Drug Allergy Active tramadol Tramadol HCl([facility] Code:[address]-55 ) rash Drug Allergy Active ENCOUNTERS from 1996 to 2022-10-24 Encounter Location Date Provider Diagnosis [facility] [address] [facility] [id number] [place] [address] Oct, DIEUDONNE Malik Borderline personality disorder F60.3 IMMUNIZATIONS Vaccine Route [...] 1997 Administered dtap (history) Unknown 1996 Administered dtap (history) Unknown Oct 30, 2001 [...] Once a day Unknown REASON FOR VISIT [facility] Contact MEDICAL (GENERAL) HISTORY Type Description Date Medical [...] Notes Treatment Notes Treatment Clinical Notes Oct, Borderline personality disorder (ICD-10 - F60.3) PLAN OF TREATMENT Next Appt Details Provider Name:MERISSA NIX , 2023-01-21 05:20:00 PM, [address] [facility], [id number], [place], [address], Provider Name:STEPHY Rose, 2023-03-19 01:00:00 PM, [address] [facility], [id number], [place], [address], Insurance Providers Payer Name Payer Address Payer Phone Insured Name Patient Relationship to Insured Coverage Start Date Coverage End Date Subscriber Number Group Number NON [address] [facility] [address] Rosemary Zuniga Self - patient is the insured [id number] [facility] 19 [address] [facility] [address] Rosemary Zuniga Self - patient is the insured [id number] [facility][note 3] [address] Rosemary Zuniga Self - patient is the insured [id number] [facility] [address] [facility] [address] Rosemary Zuniga Self - patient is the insured [id number] [address] [facility] [address] Rosemary Zuniga Self - patient is the insured [id number]
--- OUTSIDE RECORDS SUMMARY | 2023-01-29 05:37 | XMS REPORT ---
Author Author [facility] ter of [facility] ter of [facility] Address Unknown Phone Unavailable Care Team Providers Care Horticulture Worker Name Role Phone EVA PAIGE Unavailable PROBLEMS Type Condition ICD9-CM Code GLJ77-AT Code Onset Dates Condition Status W/U Status Risk SNOMED Code Notes Problem Acute stress reaction with predominately emotional disturbance F43.9 confirmed 22158833 Problem Episode of recurrent major depressive disorder, unspecified depression episode severity F33.9 confirmed 211564111 Problem Anxiety F41.9 confirmed 14701095 Problem Severe episode of recurrent major depressive disorder, without psychotic features F33.2 confirmed 33026067 Problem Complex 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 confirmed 908099351 Problem 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 confirmed 76840536 Problem Pelvic congestion syndrome N94.89 confirmed 62126459 Problem Dysuria R30.0 confirmed 62361474 Problem Seasonal allergies J30.2 confirmed 699406029 Problem Borderline personality disorder F60.3 confirmed 01455580 Problem Irregular periods N92.6 confirmed 60959706 Problem Vaginal bleeding N93.9 confirmed 538352575 Problem Amenorrhea N91.2 confirmed 41343132 Problem Abnormal uterine bleeding N93.9 confirmed 0273296465 9100 Problem Positive test Z32.01 confirmed 708569272 Problem Seasonal allergic rhinitis due to pollen J30.1 confirmed 37379013 Problem Missed period N92.6 confirmed 226364 00 Problem Fever R50.9 confirmed 880035835 Problem Discharge from the vagina N89.8 confirmed 13603443 Problem Mood disorder F39 confirmed 656777 05 Problem Allergic rhinitis, unspecified seasonality, unspecified trigger J30.9 confirmed 09822111 Problem Major depressive disorder, recurrent severe without psychotic features F33.2 confirmed 67474703 Problem Leg paresthesia R20.2 confirmed 889420607 ALLERGIES Allergen (clinical drug ingredient) Drug/Non Drug Allergy documented on EMR Reaction Allergy Type Onset Date Status Rochakan hives Drug Allergy Active IV Contrast rash/reddened skin Non Drug Allergy Active tramadol Tramadol HCl([facility] Code:[address]-59 ) rash Drug Allergy Active ENCOUNTERS from 1996 to 2022-08-10 Encounter Location Date [facility] [address] [id number] [place] [address] Jun, EVA PAIGE care in fir st trimester Z34.91 ; History of pre-eclampsia in prior , currently in first trimester O09.291 ; Screening for STDs (sexually transmitted diseases) Z11.3 ; 4 weeks gestation of Z3A.01 and Previous section complicating O34.219 IMMUNIZATIONS Vaccine Route Administration Date Status gardasil-4 (history) Unknown June 19, 2006 Admin istered dtap (history) Unknown Oct 30, 2001 Administered PRIVATE FLULAVAL QUAD 0.5ML (6 MO AND UP) 2018 IM Intramuscular Dec 18, 2018 Administered PRIVATE FLULAVAL QUAD 0.5ML (6 MO AND UP) 2018 IM Intramuscular Jan 01, 2018 Administered tdap (history) Unknown June 02, 2018 Administere d tdap (history) Unknown October 03, 2016 Administered gardasil-4 (history) Unknown Mar 05, 2007 Adminis tered gardasil-4 (history) Unknown August 21, 2006 Adminis tered Hib 4 dose schedule Unknown 1996 Adminis tered hepatitis a (history) Unknown Mar 05, 2007 [...] in Jun, Height-cm 162.56 cm Jun, Weight 114.5 lbs Jun, Weight-kg 51.94 kg Jun, Temperature 98.8 degrees Fahrenheit Jun, Heart Rate 88 bpm Jun, Respiratory Rate 20 bpm Jun, Oximetry 98 % Jun, BMI 19.654 kg/m2 Jun, Blood pressure systolic 116 mmHg Jun, Blood pressure diastolic 56 mmHg Jun, MEDICATIONS Medication SIG (Take, Route, Frequency, Duration) Notes Start Date End Date Status Azithromycin 250 mg 2 tablet on the day, then 1 tablet daily for 4 days Orally Once a day for 5 day(s) May, Active ZyrTEC 10 MG 1 tablet Active Benadryl Active 27-1 MG 1 tablet Orally Once a day Active Flonase Not-Taking Miconazole 7 100 mg 1 suppository at bed time Vaginal Once a day for 7 days May, Not-Taking PROCEDURES from 1996 to 2022-08-10 Procedure Date Ordered Date Performed Result Body Sit e ROUTINE VENIPUNCTURE 2020-07-26 2020-07-26 N/A REASON FOR VISIT Pt states she has been feeling a little bit crampy. Had a miscarriage back in May. Is dealing with constipation. Pt had a history of pre-eclampsia. efrain byers MEDICAL (GENERAL) HISTORY Type Description Date Medical [...] Notes Treatment Notes Treatment Clinical Notes Jun, care in first trimester (ICD-10 - Z34.91) Jun, History of pre-eclampsia in prior , currently in first trimester (ICD-10 - O09.291) Jun, Screening for STDs (sexually transmitted diseases) (ICD-10 - Z11.3) Jun, 4 weeks gestation of (ICD-10 - Z3A.01) Jun, Previous section complicating (ICD-10 - O34.219) Jun, Other This note wa s scribed by Lev Arias under the direct supervision of Dr. Lesly MCKEON who directed the entire visit and performed the exam. PLAN OF TREATMENT Next Appt Details 4 Weeks Reason: Provider Name:JOSE BANEGAS, 2022-09-02 10:15:00 AM, [address] [place] [address], [id number], [place], [address], Provider Name:ARPITA Butler, 2022-09-02 10:30:00 AM, [address] [place] [address], [id number], [place], [address], Provider Name:MERISSA NIX , 2022-10-17 03:00:00 PM, [address] [place] [address], [id number], [place], [address], Provider Name:CINDY JOYA, 2023-03-19 01:00:00 PM, [address] [place] [address], [id number], [place], [address], Insurance Providers Payer Name Payer Address Payer Phone Insured Name Patient Relationship to Insured Coverage Start Date Coverage End Date Subscriber Number Group Number NON FQHC [facility] 19 [address] [facility] [address] Rosemary Zuniga Self - patient is the insured [id number] NON FQHC [address] [facility] [address] Rosemary Zuniga Self - patient is the insured [id number] [facility] 19 [address] [facility] [address] Rosemary Zuniga Self - patient is the insured [id number] [place] [address] [address] [facility] [phone] Rosemary Zuniga Self - patient is the insured [id number] [facility] [address] Rosemary Zuniga Self - patient is the insured [id number]
--- OUTSIDE RECORDS SUMMARY | 2023-01-29 05:37 | XMS REPORT ---
Author Author [facility] ter of [facility] ter of [facility] Address Unknown Phone Unavailable Care Team Providers Care Dental Surgeon Name Role Phone CINDY TANG Unavailable PROBLEMS Type Condition ICD9-CM Code BBT45-HE Code Onset Dates Condition Status W/U Status Risk SNOMED Code Notes Problem Acute stress reaction with predominately emotional disturbance F43.9 confirmed 77549736 Problem Episode of recurrent major depressive disorder, unspecified depression episode severity F33.9 confirmed 939902287 Problem Anxiety F41.9 confirmed 85433785 Problem Severe episode of recurrent major depressive disorder, without psychotic features F33.2 confirmed 80037819 Problem Complex 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 confirmed 694920273 Problem 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 confirmed 28212437 Problem Pelvic congestion syndrome N94.89 confirmed 66119983 Problem Dysuria R30.0 confirmed 95421571 Problem Seasonal allergies J30.2 confirmed 497146183 Problem Borderline personality disorder F60.3 confirmed 78514495 Problem Irregular periods N92.6 confirmed 13506591 Problem Vaginal bleeding N93.9 confirmed 636364960 Problem Amenorrhea N91.2 confirmed 72463163 Problem Abnormal uterine bleeding N93.9 confirmed 7548552071 9100 Problem Positive test Z32.01 confirmed 216797727 Problem Seasonal allergic rhinitis due to pollen J30.1 confirmed 34448195 Problem Missed period N92.6 confirmed 285786 00 Problem Fever R50.9 confirmed 866389024 Problem Discharge from the vagina N89.8 confirmed 96804332 Problem Mood disorder F39 confirmed 837227 05 Problem Allergic rhinitis, unspecified seasonality, unspecified trigger J30.9 confirmed 71610685 Problem Major depressive disorder, recurrent severe without psychotic features F33.2 confirmed 47690316 Problem Leg paresthesia R20.2 confirmed 278269690 ALLERGIES Allergen (clinical drug ingredient) Drug/Non Drug Allergy documented on EMR Reaction Allergy Type Onset Date Status Rocephin hives Drug Allergy Active IV Contrast rash/reddened skin Non Drug Allergy Active tramadol Tramadol HCl([facility] Code:[address]-16 ) rash Drug Allergy Active ENCOUNTERS from 1996 to 2022-08-18 Encounter Location Date Provider Diagnosis [facility] [address] [facility] [id number] [place] [address] Aug, CINDY TANG Severe episode of recurrent major [...] Unknown 1996 Administered DTaP-Hib Unknown 1996 Administered hepatitis a (history) Unknown August 21, 2006 Admini stered Hib 4 dose schedule Unknown 1996 Adminis tered PRIVATE FLULAVAL QUAD 0.5ML (6 MO AND UP) 2019 IM Intramuscular Dec 18, 2018 Administered tdap [...] (history) Unknown Mar 03, 1997 A dministered polio ipv (history) Unknown Oct 30, 2001 [...] a day for 7 days May, Not-Taking REASON FOR VISIT [facility] Services MEDICAL (GENERAL) [...] Next Appt Details prn Reason:Check In Provider Name:JOSE BANEGAS, 2022-09-02 10:15:00 AM, [address] [place] [address], [id number], [place], [address], Provider Name:ARPITA Butler, 2022-09-02 10:30:00 AM, [address] [place] [address], [id number], [place], [address], Provider Name:MERISSA NIX , 2022-10-17 03:00:00 PM, [address] [place] [address], [id number], [place], [address], Provider Name:CINDY JOYA, 2023-03-19 01:00:00 PM, [address] [place] [address], [id number], [place], [address], Follow Up:prnCheck In Insurance Providers Payer Name Payer Address Payer Phone Insured Name Patient Relationship to Insured Coverage Start Date Coverage End Date Subscriber Number Group Number [place] [address] [address] [facility] [phone] Rosemary Zuniga Self - patient is the insured [id number] NON FQHC [address] [facility] [address] Rosemary Zuniga Self - patient is the insured [id number] [facility] 19 [address] [facility] [phone] Rosemary Zuniga Self - patient is the insured [id number] [address] [phone] Rosemary Zuniga Self - patient is the insured [id number] [facility] [address] [facility] [address] Rosemary Zuniga Self - patient is the insured [id number]
--- OUTSIDE RECORDS SUMMARY | 2023-01-29 05:37 | XMS REPORT ---
Author Author [facility] ter of [facility] ter of [facility] Address Unknown Phone Unavailable Care Team Providers Care Newspaper Publisher Name Role Phone SANJU Waters Unavailable PROBLEMS Type Condition ICD9-CM Code ABA78-JM Code Onset Dates Condition Status W/U Status Risk SNOMED Code Notes Problem Acute stress reaction with predominately emotional disturbance F43.9 confirmed 82267742 Problem Episode of recurrent major depressive disorder, unspecified depression episode severity F33.9 confirmed 895027410 Problem Anxiety F41.9 confirmed 11617398 Problem Severe episode of recurrent major depressive disorder, without psychotic features F33.2 confirmed 67670381 Problem Complex 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 confirmed 336199745 Problem 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 confirmed 93940361 Problem Pelvic congestion syndrome N94.89 confirmed 07922925 Problem Dysuria R30.0 confirmed 91952365 Problem Seasonal allergies J30.2 confirmed 521455741 Problem Borderline personality disorder F60.3 confirmed 80065449 Problem Irregular periods N92.6 confirmed 53516018 Problem Vaginal bleeding N93.9 confirmed 929956287 Problem Amenorrhea N91.2 confirmed 12660484 Problem Abnormal uterine bleeding N93.9 confirmed 5815482058 9100 Problem Positive test Z32.01 confirmed 267982706 Problem Seasonal allergic rhinitis due to pollen J30.1 confirmed 29007007 Problem Missed period N92.6 confirmed 332858 00 Problem Fever R50.9 confirmed 762431162 Problem Discharge from the vagina N89.8 confirmed 01852082 Problem Mood disorder F39 confirmed 851946 05 Problem Allergic rhinitis, unspecified seasonality, unspecified trigger J30.9 confirmed 25089502 Problem Major depressive disorder, recurrent severe without psychotic features F33.2 confirmed 62405814 Problem Leg paresthesia R20.2 confirmed 663887895 ALLERGIES Allergen (clinical drug ingredient) Drug/Non Drug Allergy documented on EMR Reaction Allergy Type Onset Date Status Rocephin hives Drug Allergy Active IV Contrast rash/reddened skin Non Drug Allergy Active tramadol Tramadol HCl([facility] Code:[address]-04 ) rash Drug Allergy Active ENCOUNTERS from 1996 to 2022-08-20 Encounter Location Date Provider Diagnosis [facility] [address] [facility] [id number] [place] [address] Aug, SANJU Waters Intestinal worms B82.0 IMMUNIZATIONS Vaccine Route Administration Date Status gardasil-4 (history) Unknown Mar 05, 2007 Adminis tered gardasil-4 (history) Unknown August 21, 2006 Adminis tered gardasil-4 (history) Unknown June 19, 2006 Admin istered dtap (history) Unknown Oct 30, 2001 Administered Hib 4 dose schedule Unknown 1996 Adminis tered tdap (history) Unknown Feb 28, 2021 Administered tdap (history) Unknown June 02, 2018 Administere d tdap (history) Unknown October 03, 2016 Administered PRIVATE FLULAVAL QUAD 0.5ML (6 MO AND UP) 2018 IM Intramuscular Jan 01, 2018 Administered hepatitis a (history) Unknown Mar 05, 2007 Admini stered hepatitis a (history) Unknown August 21, 2006 Admini stered polio ipv (history) Unknown Oct 30, 2001 [...] 2020 Administered hepatitis b pediatric (history) Unknown August 26 99 Administered hepatitis b pediatric (history) Unknown 1996 Administered DTaP-Hib Unknown 1996 Administered OPV Unknown July 28, 1997 Administered mmr-II (history) Unknown Oct 30, 2001 Administere d mmr-II (history) Unknown July 28, 1997 Administe red hepatitis b pediatric (history) Unknown 1996 Administered OPV Unknown 1996 Administered OPV Unknown 1996 Administered Hib 4 dose schedule Unknown July 28, 1997 Admini stered SOCIAL HISTORY Sex Assigned At [...] 7 days May, Not-Taking REASON FOR VISIT Lab (walk-in) MEDICAL (GENERAL) HISTORY Type Description Date Medical [...] Notes Treatment Notes Treatment Clinical Notes Aug, Intestinal worms (ICD-10 - B82.0) PLAN OF TREATMENT Next Appt Details Provider Name:JOSE BANEGAS, 2022-09-02 10:15:00 AM, [address] [place] [address], [id number], [place], [address], Provider Name:ARPITA Butler, 2022-09-02 10:30:00 AM, [address] [place] [address], [id number], [place], [address], Provider Name:MERISSA NIX , 2022-10-17 03:00:00 PM, [address] [place] [address], [id number], [place], [address], Provider Name:CINDY JOYA, 2023-03-19 01:00:00 PM, [address] [place] [address], [id number], [place], [address], Insurance Providers Payer Name Payer Address Payer Phone Insured Name Patient Relationship to Insured Coverage Start Date Coverage End Date Subscriber Number Group Number NON FQHC [address] [facility] [phone] Rosemary Zuniga Self - patient is the insured [id number] [facility] [address] [facility] [address] Rosemary Zuniga Self - patient is the insured [id number] [place] [address] [address] [facility] [phone] Rosemary Zuniga Self - patient is the insured [id number] [address] [facility] [address] [phone] Rosemary Zuniga Self - patient is the insured [id number] [facility] 19 [address] [facility] [address] [phone] Rosemary Zuniga Self - patient is the insured [id number]
--- OUTSIDE RECORDS SUMMARY | 2023-01-29 05:37 | XMS REPORT ---
Author Author [facility] ter of [facility] ter of [facility] Address Unknown Phone Unavailable Care Team Providers Care Tray Server Name Role Phone CINDY TANG Unavailable [phone] PROBLEMS Type Condition ICD9-CM Code ZJX50-BI Code Onset Dates Condition Status W/U Status Risk SNOMED Code Notes Problem Acute stress reaction with predominately emotional disturbance F43.9 confirmed 14258680 Problem Episode of recurrent major depressive disorder, unspecified depression episode severity F33.9 confirmed 459895522 Problem Anxiety F41.9 confirmed 19630281 Problem Severe episode of recurrent major depressive disorder, without psychotic features F33.2 confirmed 58874821 Problem Complex 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 confirmed 867193713 Problem 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 confirmed 80534276 Problem Pelvic congestion syndrome N94.89 confirmed 11728139 Problem Dysuria R30.0 confirmed 08212259 Problem Seasonal allergies J30.2 confirmed 686393809 Problem Borderline personality disorder F60.3 confirmed 28389631 Problem Irregular periods N92.6 confirmed 76511515 Problem Vaginal bleeding N93.9 confirmed 506193778 Problem Amenorrhea N91.2 confirmed 30020919 Problem Abnormal uterine bleeding N93.9 confirmed 7792371174 9100 Problem Positive test Z32.01 confirmed 256887533 Problem Seasonal allergic rhinitis due to pollen J30.1 confirmed 83505725 Problem Missed period N92.6 confirmed 003513 00 Problem Fever R50.9 confirmed 672712495 Problem Discharge from the vagina N89.8 confirmed 08485438 Problem Mood disorder F39 confirmed 194870 05 Problem Allergic rhinitis, unspecified seasonality, unspecified trigger J30.9 confirmed 05692583 Problem Major depressive disorder, recurrent severe without psychotic features F33.2 confirmed 00885450 Problem Leg paresthesia R20.2 confirmed 639295181 ALLERGIES Allergen (clinical drug ingredient) Drug/Non Drug Allergy documented on EMR Reaction Allergy Type Onset Date Status Rocephin hives Drug Allergy Active IV Contrast rash/reddened skin Non Drug Allergy Active tramadol Tramadol HCl([facility] Code:[address]-44 ) rash Drug Allergy Active ENCOUNTERS from 1996 to 2022-08-13 Encounter Location Date Provider Diagnosis [facility] [address] [facility] [id number] [place] [address] Aug, CINDY TANG Severe episode of recurrent [...] dtap (history) Unknown Mar 03, 1997 Administered PRIVATE FLULAVAL QUAD 0.5ML (6 MO AND UP) 2019 IM Intramuscular Jan 01, 2018 Administered hepatitis a (history) Unknown Mar 05, 2007 Admini stered hepatitis a (history) Unknown August 21, 2006 Admini stered dtap (history) Unknown 1996 Administered [...] disorder, without psychotic features (ICD-10 - F33.2) Aug, Other Goals and educational tools provided to patient PLAN OF TREATMENT Next Appt Details prn Reason:Check In Provider Name:JOSE BANEGAS, 2022-09-02 10:15:00 AM, [address] [place] [address], [id number], [place], [address], Provider Name:ARPITA Butler, 2022-09-02 10:30:00 AM, [address] [place] [address], [id number], [place], [address], Provider Name:MERISSA NIX , 2022-10-17 03:00:00 PM, [address] [place] [address], [id number], [place], [address], Provider Name:CINDY JOYA, 2023-03-19 01:00:00 PM, [address] [place] [address], [id number], [address], Follow Up:prnCheck In Insurance Providers Payer Name Payer Address Payer Phone Insured Name Patient Relationship to Insured Coverage Start Date Coverage End Date Subscriber Number Group Number NON [facility] [address] [facility] [address] Rosemary Zuniga Self - patient is the insured [id number] [address] [facility] [address] Rosemary Zuniga Self - patient is the insured [id number] [facility] 19 [address] [facility] [address] Rosemary Zuniga Self - patient is the insured [id number] NON FQ[address] [facility] [address] Rosemary Zuniga Self - patient is the insured [id number] [facility] 19 [address] [facility] [address] Rosemary Zuniga Self - patient is the insured [id number]
--- OUTSIDE RECORDS SUMMARY | 2023-01-29 05:37 | XMS REPORT ---
Author Author [facility] ter of [facility] ter of [facility] Address Unknown Phone Unavailable Care Team Providers Care Wharf Tally Clerk Name Role Phone SANJU Waters Unavailable PROBLEMS Type Condition ICD9-CM Code DHF59-DL Code Onset Dates Condition Status W/U Status Risk SNOMED Code Notes Problem Acute stress reaction with predominately emotional disturbance F43.9 confirmed 01118626 Problem Episode of recurrent major depressive disorder, unspecified depression episode severity F33.9 confirmed 336819313 Problem Anxiety F41.9 confirmed 07183150 Problem Severe episode of recurrent major depressive disorder, without psychotic features F33.2 confirmed 97782237 Problem Complex 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 confirmed 261621118 Problem 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 confirmed 95658149 Problem Pelvic congestion syndrome N94.89 confirmed 66551915 Problem Dysuria R30.0 confirmed 44786914 Problem Seasonal allergies J30.2 confirmed 233992224 Problem Borderline personality disorder F60.3 confirmed 32243091 Problem Irregular periods N92.6 confirmed 39451127 Problem Vaginal bleeding N93.9 confirmed 335804019 Problem Amenorrhea N91.2 confirmed 24160505 Problem Abnormal uterine bleeding N93.9 confirmed 1811384183 9100 Problem Positive test Z32.01 confirmed 589089793 Problem Seasonal allergic rhinitis due to pollen J30.1 confirmed 01352965 Problem Missed period N92.6 confirmed 144603 00 Problem Fever R50.9 confirmed 601417860 Problem Discharge from the vagina N89.8 confirmed 06098589 Problem Mood disorder F39 confirmed 933829 05 Problem Allergic rhinitis, unspecified seasonality, unspecified trigger J30.9 confirmed 27251657 Problem Major depressive disorder, recurrent severe without psychotic features F33.2 confirmed 89460606 Problem Leg paresthesia R20.2 confirmed 789776918 ALLERGIES Allergen (clinical drug ingredient) Drug/Non Drug Allergy documented on EMR Reaction Allergy Type Onset Date Status Rocephin hives Drug Allergy Active IV Contrast rash/reddened skin Non Drug Allergy Active tramadol Tramadol HCl([facility] Code:[address]-82 ) rash Drug Allergy Active ENCOUNTERS from 1996 to 2022-08-27 Encounter Location Date Provider Diagnosis [facility] [place] [address] [facility] [id number] [place] [address] Aug, SANJU Waters IMMUNIZATIONS Vaccine Route Administration Date Status comvax [...] 7 days May, Not-Taking REASON FOR VISIT request return call MEDICAL (GENERAL) HISTORY Type Description [...] Details Provider Name:JOSE BANEGAS, 2022-09-02 10:15:00 AM, [address] [place] [address], [id number], [place], [address], Provider Name:ARPITA Butler, 2022-09-02 10:30:00 AM, [address] [place] [address], [id number], [place], [address], Provider Name:MERISSA NIX , 2022-10-17 03:00:00 PM, [address] [place] [address], [id number], [place], [address], Provider Name:CINDY JOYA, 2023-03-19 01:00:00 PM, [address] [place] [address], [id number], [place], [address], Insurance Providers Payer Name Payer Address Payer Phone Insured Name Patient Relationship to Insured Coverage Start Date Coverage End Date Subscriber Number Group Number MELISSA [address] [facility] [address] Rosemary Zuniga Self - patient is the insured [id number] NON FQHC [facility] [address] [facility] [address] Rosemary Zuniga Self - patient is the insured [id number] [facility] [address] [facility] [address] Rosemary Zuniga Self - patient is the insured [id number] NON FQHC [address] [facility] [address] Rosemary Zuniga Self - patient is the insured [id number] [address] [facility] [address] Rosemary Zuniga Self - patient is the insured [id number]
--- OUTSIDE RECORDS SUMMARY | 2023-01-29 05:37 | XMS REPORT ---
Author Author [facility] ter of [facility] ter of [facility] Address Unknown Phone Unavailable Care Team Providers Care Pants Closer Name Role Phone EVA PAIGE Unavailable PROBLEMS Type Condition ICD9-CM Code DAG94-MI Code Onset Dates Condition Status W/U Status Risk SNOMED Code Notes Problem Acute stress reaction with predominately emotional disturbance F43.9 confirmed 79434288 Problem Episode of recurrent major depressive disorder, unspecified depression episode severity F33.9 confirmed 026351324 Problem Anxiety F41.9 confirmed 68097954 Problem Severe episode of recurrent major depressive disorder, without psychotic features F33.2 confirmed 62602321 Problem Complex 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 confirmed 405276244 Problem 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 confirmed 63650473 Problem Pelvic congestion syndrome N94.89 confirmed 16529150 Problem Dysuria R30.0 confirmed 65976540 Problem Seasonal allergies J30.2 confirmed 524875081 Problem Borderline personality disorder F60.3 confirmed 44368547 Problem Irregular periods N92.6 confirmed 33632954 Problem Vaginal bleeding N93.9 confirmed 233217728 Problem Amenorrhea N91.2 confirmed 01982652 Problem Abnormal uterine bleeding N93.9 confirmed 4285158688 9100 Problem Positive test Z32.01 confirmed 792622932 Problem Seasonal allergic rhinitis due to pollen J30.1 confirmed 24047963 Problem Missed period N92.6 confirmed 867693 00 Problem Fever R50.9 confirmed 695514695 Problem Discharge from the vagina N89.8 confirmed 31934602 Problem Mood disorder F39 confirmed 777326 05 Problem Allergic rhinitis, unspecified seasonality, unspecified trigger J30.9 confirmed 52486339 Problem Major depressive disorder, recurrent severe without psychotic features F33.2 confirmed 23852590 Problem Leg paresthesia R20.2 confirmed 370243189 ALLERGIES Allergen (clinical drug ingredient) Drug/Non Drug Allergy documented on EMR Reaction Allergy Type Onset Date Status Rocephin hives Drug Allergy Active IV Contrast rash/reddened skin Non Drug Allergy Active tramadol Tramadol HCl([facility] Code:[address]-31 ) rash Drug Allergy Active ENCOUNTERS from 1996 to 2022-08-05 Encounter Location Date Provider Diagnosis [facility] [address] [facility] [id number] [place] [address] July, [facility] IMMUNIZATIONS Vaccine Route Administration Date Status DTaP-Hib [...] tdap (history) Unknown Feb 28, 2021 Administered comvax hib/hep b (history) Unknown Mar [...] 7 days May, Not-Taking REASON FOR VISIT return call MEDICAL (GENERAL) HISTORY Type Description [...] Details Provider Name:JOSE BANEGAS, 2022-09-02 10:15:00 AM, [address] [place] [address], [id number], [place], [address], Provider Name:ARIPTA Butler, 2022-09-02 10:30:00 AM, [address] [place] [address], [id number], [place], [address], Provider Name:MERISSA NIX , 2022-10-17 03:00:00 PM, [address] [place] [address], [id number], [place], [address], Provider Name:CINDY JOYA, 2023-03-19 01:00:00 PM, [address] [place] [address], [id number], [place], [address], Insurance Providers Payer Name Payer Address Payer Phone Insured Name Patient Relationship to Insured Coverage Start Date Coverage End Date Subscriber Number Group Number NON [place] [id number] [address] [facility] [address] Rosemary Zuniga Self - patient is the insured [id number] NON [address] [facility] [address] [phone] Rosemary Zuniga Self - patient is the insured [id number] [place] [address] [address] [facility] [address] [phone] Rosemary Zuniga Self - patient is the insured [id number] [address] [facility] [address] [phone] Rosemary Zuniga Self - patient is the insured [id number] [place] [address] [address] [facility] [address] [phone] Rosemary Zuniga Self - patient is the insured [id number]
--- OUTSIDE RECORDS SUMMARY | 2023-01-29 05:37 | XMS REPORT ---
Author Author [facility] ter of [facility] Address Unknown Phone Unavailable Care Team Providers Care Library Services Assistant Name Role Phone AMOR RIELAND Unavailable PROBLEMS Type Condition ICD9-CM Code [id number] Code Onset Dates Condition Status W/U Status Risk SNOMED Code Notes Problem Acute stress reaction with predominately emotional disturbance F43.9 confirmed 28605206 Problem Episode of recurrent major depressive disorder, unspecified depression episode severity F33.9 confirmed 933603621 Problem Anxiety F41.9 confirmed 78427636 Problem Severe episode of recurrent major depressive disorder, without psychotic features F33.2 confirmed 94516536 Problem Complex 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 confirmed 199809544 Problem 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 confirmed 70754750 Problem Pelvic congestion syndrome N94.89 confirmed 28387650 Problem Dysuria R30.0 confirmed 56974055 Problem Seasonal allergies J30.2 confirmed 850206000 Problem Borderline personality disorder F60.3 confirmed 69756686 Problem Irregular periods N92.6 confirmed 01294048 Problem Vaginal bleeding N93.9 confirmed 331452697 Problem Amenorrhea N91.2 confirmed 17059057 Problem Abnormal uterine bleeding N93.9 confirmed 0350361839 9100 Problem Positive test Z32.01 confirmed 880613738 Problem Seasonal allergic rhinitis due to pollen J30.1 confirmed 27491172 Problem Missed period N92.6 confirmed 331984 00 Problem Fever R50.9 confirmed Problem Discharge from the vagina N89.8 confirmed Problem Mood disorder F39 confirmed 649303 05 Problem Allergic rhinitis, unspecified seasonality, unspecified trigger J30.9 confirmed 12344596 Problem Major depressive disorder, recurrent severe without psychotic features F33.2 confirmed Problem Leg paresthesia R20.2 confirmed 093800342 ALLERGIES Allergen (clinical drug ingredient) Drug/Non Drug Allergy documented on EMR Reaction Allergy Type Onset Date Status Rocephin hives Drug Allergy Active IV Contrast rash/reddened skin Non Drug Allergy Active tramadol Tramadol HCl([facility] Code:[address]-31 ) rash Drug Allergy Active ENCOUNTERS from 1996 to 2022-08-26 Encounter Location Date Provider Diagnosis [facility] IN [facility] [address] [id number] [place] [address] Aug, CRYSTAL SHU Mouth pain K13.79 ; Right ear pain H92.01 and Allergic rhinitis, unspecified seasonality, unspecified trigger J30.9 IMMUNIZATIONS Vaccine Route Administration Date Status tdap [...] 28, 1997 Adminloulou red dtap (history) Unknown Mar 03, 1997 Administered [...] No Information VITAL SIGNS Height 64 in Aug, Height-cm 162.56 cm Aug, Weight 121.5 lbs Aug, Weight-kg 55.11 kg Aug, Temperature 98.1 degrees Fahrenheit Aug, Heart Rate 107 bpm Aug, Respiratory Rate 20 bpm Aug, BMI 20.85 kg/m2 Aug, Blood pressure systolic 121 mmHg Aug, Blood pressure diastolic 74 mmHg Aug, MEDICATIONS Medication SIG (Take, Route, Frequency, Duration) [...] 7 days May, Not-Taking REASON FOR VISIT Tooth complaint/ UTI symptoms-tooth issues began today, dysuria every now and again but nothing major. Also has had allergy issues and she believes that is contributing to ear aches. Leigh BECK, Is taking OTC allergy meds. Meds verified with pt., Pt is 11 weeks Leigh BECK MEDICAL (GENERAL) HISTORY Type Description Date Medical [...] Notes Treatment Notes Treatment Clinical Notes Aug, Mouth pain (ICD-10 - K13.79) please make an appt with our dental department Aug, Right ear pain (ICD-10 - H92.01) Aug, Allergic rhinitis, unspecified seasonality, unspecified trigger (ICD-10 - J30.9) continue zyrtec, Seasonal Allergies: Care Instructions material was published Aug, Other Medications as directed, supportive care and monitoring, rest as able, push fluids to maintain hydration. Office visit it not improving. Patient verbalized understanding of above instructions. PLAN OF TREATMENT Treatment Notes Assessment Notes Clinical Notes Mouth pain please make an appt with our dental department Allergic rhinitis, unspecifi ed seasonality, unspecified trigger continue zyrtec, Seasonal Allergies: Care Instructions material was published Next Appt Details if not improving with PCP or reg follow up Reason: Provider Name:JOSE BANEGAS, 2022-09-02 10:15:00 AM, [address], [id number], [place], [address], Provider Name:ARPITA Butler, 2022-09-02 10:30:00 AM, [address] [place] [address], [id number], [place], [address], Provider Name:MERISSA NIX , 2022-10-17 03:00:00 PM, [address] [place] [address], [id number], [place], [address], Provider Name:CINDY JOYA, 2023-03-19 01:00:00 PM, [address] [facility], [id number], [place], [address], Insurance Providers Payer Name Payer Address Payer Phone Insured Name Patient Relationship to Insured Coverage Start Date Coverage End Date Subscriber Number Group Number NON [id number] [facility] [address] Rosemary Zuniga Self - patient is the insured [id number] [facility] [address] [facility] [address] Rosemary Zuniga Self - patient is the insured [id number] [facility] 19 [address] [facility] [address] [phone] Rosemary Zuniga Self - patient is the insured [id number] [facility] 19 [address] [facility] [address] [phone] Rosemary Zuniga Self - patient is the insured [id number] [address] [facility] [address] Rosemary Zuniga Self - patient is the insured [id number]
--- OUTSIDE RECORDS SUMMARY | 2023-01-29 05:37 | XMS REPORT ---
Author Author [facility] ter of [facility] ter of [facility] Address Unknown Phone Unavailable Care Team Providers Care Automation Machine Operator Name Role Phone BARRETT Redman Unavailable [phone] PROBLEMS Type Condition ICD9-CM Code RIA25-JO Code Onset Dates Condition Status W/U Status Risk SNOMED Code Notes Problem Acute stress reaction with predominately emotional disturbance F43.9 confirmed 91075645 Problem Episode of recurrent major depressive disorder, unspecified depression episode severity F33.9 confirmed 866836214 Problem Anxiety F41.9 confirmed 35328589 Problem Severe episode of recurrent major depressive disorder, without psychotic features F33.2 confirmed 06243203 Problem Complex 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 confirmed 782593132 Problem 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 confirmed 31887590 Problem Pelvic congestion syndrome N94.89 confirmed 03680622 Problem Dysuria R30.0 confirmed 63842565 Problem Seasonal allergies J30.2 confirmed 326347561 Problem Borderline personality disorder F60.3 confirmed Problem Irregular periods N92.6 confirmed 82286610 Problem Vaginal bleeding N93.9 confirmed 897315296 Problem Amenorrhea N91.2 confirmed 43231292 Problem Abnormal uterine bleeding N93.9 confirmed 1486981898 9100 Problem Positive test Z32.01 confirmed 846052605 Problem Seasonal allergic rhinitis due to pollen J30.1 confirmed 53471882 Problem Missed period N92.6 confirmed 611660 00 Problem Fever R50.9 confirmed 368162775 Problem Discharge from the vagina N89.8 confirmed Problem Mood disorder F39 confirmed 671373 05 Problem Allergic rhinitis, unspecified seasonality, unspecified trigger J30.9 confirmed 37425600 Problem Major depressive disorder, recurrent severe without psychotic features F33.2 confirmed Problem Leg paresthesia R20.2 confirmed 107263994 ALLERGIES Allergen (clinical drug ingredient) Drug/Non Drug Allergy documented on EMR Reaction Allergy Type Onset Date Status Rocephin hives Drug Allergy Active IV Contrast rash/reddened skin Non Drug Allergy Active tramadol Tramadol HCl([facility] Code:[address]-87 ) rash Drug Allergy Active ENCOUNTERS from 1996 to 2022-08-27 Encounter Location Date Provider Diagnosis [facility] [address] [facility] [id number] [place] [address] Jun, BARRETT Redman Borderline personality disorder F60.3 and Complex 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 IMMUNIZATIONS Vaccine Route Administration Date Status OPV [...] 7 days May, Not-Taking REASON FOR VISIT f/u [phone] MEDICAL (GENERAL) HISTORY Type Description Date Medical [...] Notes Treatment Notes Treatment Clinical Notes Jun, Complex posttraumati c stress disorder (ICD-10 - F43.10) Jun, Borderline personality disorder (ICD-10 - F60.3) PLAN OF TREATMENT Next Appt Details 1-2 Weeks Reason: Levi U p Provider Name:JOSE BANEGAS, 2022-09-02 10:15:00 AM, [address] [place] [address], [id number], [place], [address], Provider Name:ARPITA Butler, 2022-09-02 10:30:00 AM, [address] [place] [address], [id number], [place], [address], Provider Name:MERISSA NIX , 2022-10-17 03:00:00 PM, [address] [place] [address], [id number], [place], [address], Provider Name:CINDY JOYA, 2023-03-19 01:00:00 PM, [address] [place] [address], [id number] [place] [address], [address], Follow Up:1-2 WeeksBH Follow Up Insurance Providers Payer Name Payer Address Payer Phone Insured Name Patient Relationship to Insured Coverage Start Date Coverage End Date Subscriber Number Group Number [facility] 19 [address] [facility] [address] [phone] Rosemary Zuniga Self - patient is the insured [id number] NON [employer]HC [address] [facility] [address] Rosemary Zuniga Self - patient is the insured [id number] [facility] 19 [address] [facility] [address] Rosemary Zuniga Self - patient is the insured [id number] [address] [facility] [address] Rosemary Zuniga Self - patient is the insured [id number] [facility] 19 [address] [facility] [address] [phone] Rosemary Zuniga Self - patient is the insured [id number]
--- OUTSIDE RECORDS SUMMARY | 2023-01-29 05:37 | XMS REPORT ---
Author Author Formerly [facility] ter of [facility] ter of [facility] Address Unknown Phone Unavailable Care Team Providers Care Ground Crew Supervisor Name Role Phone SANJU Waters Unavailable PROBLEMS Type Condition ICD9-CM Code JIS42-NB Code Onset Dates Condition Status W/U Status Risk SNOMED Code Notes Problem Acute stress reaction with predominately emotional disturbance F43.9 confirmed 10327895 Problem Episode of recurrent major depressive disorder, unspecified depression episode severity F33.9 confirmed 185236748 Problem Anxiety F41.9 confirmed 96948990 Problem Severe episode of recurrent major depressive disorder, without psychotic features F33.2 confirmed 04098960 Problem Complex 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 confirmed 386370271 Problem 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 confirmed 71497641 Problem Pelvic congestion syndrome N94.89 confirmed 04250205 Problem Dysuria R30.0 confirmed 79693053 Problem Seasonal allergies J30.2 confirmed 331550499 Problem Borderline personality disorder F60.3 confirmed 56788975 Problem Irregular periods N92.6 confirmed 08703238 Problem Vaginal bleeding N93.9 confirmed 678596538 Problem Amenorrhea N91.2 confirmed 03995647 Problem Abnormal uterine bleeding N93.9 confirmed 8284791961 9100 Problem Positive test Z32.01 confirmed 488965447 Problem Seasonal allergic rhinitis due to pollen J30.1 confirmed 71794635 Problem Missed period N92.6 confirmed 119499 00 Problem Fever R50.9 confirmed 798442736 Problem Discharge from the vagina N89.8 confirmed 11500657 Problem Mood disorder F39 confirmed 337035 05 Problem Allergic rhinitis, unspecified seasonality, unspecified trigger J30.9 confirmed 00991111 Problem Major depressive disorder, recurrent severe without psychotic features F33.2 confirmed 86148229 Problem Leg paresthesia R20.2 confirmed 316381509 ALLERGIES Allergen (clinical drug ingredient) Drug/Non Drug Allergy documented on EMR Reaction Allergy Type Onset Date Status Rocephin hives Drug Allergy Active IV Contrast rash/reddened skin Non Drug Allergy Active tramadol Tramadol HCl([facility] Code:[address]-73 ) rash Drug Allergy Active ENCOUNTERS from 1996 to 2022-08-25 Encounter Location Date Provider Diagnosis [facility] IN [facility] [address] [facility] [id number] [place] [address] Aug, SANJU Waters Intestinal worms B82.0 IMMUNIZATIONS Vaccine Route Administration Date Status OPV [...] mmr-II (history) Unknown July 28, 1997 Administe andrew hepatitis a (history) Unknown Mar 05, [...] in Aug, Height-cm 162.56 cm Aug, Weight 121.3 lbs Aug, Weight-kg 55.02 kg Aug, Temperature 98.8 degrees Fahrenheit Aug, Heart Rate 100 bpm Aug, Respiratory Rate 20 bpm Aug, BMI 20.82 kg/m2 Aug, Blood pressure systolic 130 mmHg Aug, Blood pressure diastolic 58 mmHg Aug, MEDICATIONS Medication SIG (Take, Route, [...] 7 days May, Not-Taking REASON FOR VISIT had a worm in stool--chanda BELL MEDICAL (GENERAL) HISTORY Type Description Date Medical [...] Notes Aug, Intestinal worms (ICD-10 - B82.0) since albendazole and membenazole should be be avoided in , I recommend O and P studies be obtained prior to treatment. Follow up with Dr. Castro regarding treatment of suspected worms PLAN OF TREATMENT Treatment Notes Assessment Notes Clinical Notes Intestinal worms since albendazole an d membenazole should be be avoided in , I recommend O and P studies be obtained prior to treatment. Follow up with Dr. Castro regarding treatment of suspected worms Next Appt Details prn Reason: Provider Name:JOSE BANEGAS, 2022-09-02 10:15:00 AM, [address] [facility], [id number], [place], [address], Provider Name:ARPITA Butler, 2022-09-02 10:30:00 AM, [address] [facility], [id number], [place], [address], Provider Name:MERISSA NIX , 2022-10-17 03:00:00 PM, [address] [place] [address], [id number], [place], [address], Provider Name:CINDY JOYA, 2023-03-19 01:00:00 PM, [address] [place] [address], [id number], [place], [address], Insurance Providers Payer Name Payer Address Payer Phone Insured Name Patient Relationship to Insured Coverage Start Date Coverage End Date Subscriber Number Group Number NON FQ[address] [facility] [address] Rosemary Zuniga Self - patient is the insured [id number] [facility] 19 [address] [facility] [id number] [phone] Rosemary Zuniga Self - patient is the insured [id number] [address] [facility] [address] Rosemary Zuniga Self - patient is the insured [id number] [facility] 19 [address] [facility] [address] Rosemary Zuniga Self - patient is the insured [id number] [facility] 19 [address] [facility] [address] [phone] Rosemary Zuniga Self - patient is the insured [id number]
--- OUTSIDE RECORDS SUMMARY | 2023-01-29 05:37 | XMS REPORT ---
Author Author [facility] ter of [facility] ter of [facility] Address Unknown Phone Unavailable Care Team Providers Care Heading Matcher And Assembler Name Role Phone ARPITA JOHNSON Unavailable PROBLEMS Type Condition ICD9-CM Code EUY18-XC Code Onset Dates Condition Status W/U Status Risk SNOMED Code Notes Problem Acute stress reaction with predominately emotional disturbance F43.9 confirmed 49944238 Problem Episode of recurrent major depressive disorder, unspecified depression episode severity F33.9 confirmed 241603798 Problem Anxiety F41.9 confirmed 55404296 Problem Severe episode of recurrent major depressive disorder, without psychotic features F33.2 confirmed 34761702 Problem Complex 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 confirmed 495594648 Problem 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 confirmed 55080875 Problem Pelvic congestion syndrome N94.89 confirmed 49456006 Problem Dysuria R30.0 confirmed 65761025 Problem Seasonal allergies J30.2 confirmed 464971896 Problem Borderline personality disorder F60.3 confirmed 28124577 Problem Irregular periods N92.6 confirmed 51553758 Problem Vaginal bleeding N93.9 confirmed 245575003 Problem Amenorrhea N91.2 confirmed 37939276 Problem Abnormal uterine bleeding N93.9 confirmed 8979388090 9100 Problem Positive test Z32.01 confirmed 709523309 Problem Seasonal allergic rhinitis due to pollen J30.1 confirmed 01928070 Problem Missed period N92.6 confirmed 347637 00 Problem Fever R50.9 confirmed 735198924 Problem Discharge from the vagina N89.8 confirmed 26389036 Problem Mood disorder F39 confirmed 774457 05 Problem Allergic rhinitis, unspecified seasonality, unspecified trigger J30.9 confirmed 39499414 Problem Major depressive disorder, recurrent severe without psychotic features F33.2 confirmed 11446452 Problem Leg paresthesia R20.2 confirmed 591093422 ALLERGIES Allergen (clinical drug ingredient) Drug/Non Drug Allergy documented on EMR Reaction Allergy Type Onset Date Status Rocephin hives Drug Allergy Active IV Contrast rash/reddened skin Non Drug Allergy Active tramadol Tramadol HCl([facility] Code:[address]-60 ) rash Drug Allergy Active ENCOUNTERS from 1996 to 2022-08-27 Encounter Location Date Provider Diagnosis [facility] [address] [facility] [id number] [place] [address] 16 Aug, 2020 [facility] Dental examination Z01.20 IMMUNIZATIONS Vaccine Route Administration Date Status comvax [...] No REASON FOR REFERRAL from 1996 to 2022-08-27 Reason Please evaluate numb er 30 for a RCT thank you. | XRAY TAKEN 09/13/2020 Referral Organization [facility] Referring Provider First Name ARPITA Referring Provider Last Name NEARING Referring Provider Specialty Dental Gene ral Practice Referred Provider Winston Santiago Referred Provider Specialty Endodontics Referral Priority Routine General Notes Conchita Walsh 08/29 12:50:01 PM >XRAY/REFERRAL SENT VIA EMAIL Reason Please evaluate numb er 30 for RCT, thank you. Referral Organization [facility] Referring Provider First Name ARPITA Referring Provider Last Name NEARING Referring Provider Specialty Dental Gene ral Practice Referred Provider [facility] Referred Provider Specialty Dental Care Referral Priority Routine General Notes WalshShimon lirianola 08/29 12:48:55 PM >DUIPLICATE REFERRAL Reason Please evaluate numb er 30 for RCT, thank you. | XRAY TAKEN 09/13/2020 Referral Organization [facility] Referring Provider First Name ARPITA Referring Provider Last Name NEARING Referring Provider Specialty Dental Gene ral Practice Referred Provider [facility] Referred Provider Specialty Dental Care Referral Priority Routine General Notes Shimon Walshla 08/29 12:51:02 PM >REFERRAL/XRAY SENT VIA EMAIL VITAL SIGNS Height 64 in Aug, Height-cm 162.56 cm Aug, Blood pressure systolic 118 mmHg Aug, Blood pressure diastolic 72 mmHg Aug, MEDICATIONS Medication SIG (Take, Route, Frequency, Duration) Notes Start Date End Date Status Azithromycin 250 mg 2 tablet on the , then 1 tablet daily for 4 days Orally Once a day for 5 day(s) May, Active ZyrTEC 10 MG 1 tablet Active Benadryl Active 27-1 MG 1 tablet Orally Once a day Active Flonase Not-Taking Miconazole 7 100 mg 1 suppository at bed time Vaginal Once a day for 7 days May, Not-Taking REASON FOR VISIT PAIN/ PT 11 WKS/PT PLACED ON ABX, Isha Londono MEDICAL (GENERAL) HISTORY Type Description Date Medical [...] Notes Treatment Notes Treatment Clinical Notes Aug, Dental examination (ICD-10 - Z01.20) PLAN OF TREATMENT Referrals Referral Date Details Please evaluate numb er 30 for a RCT thank you. | XRAY TAKEN 09/13/2020, Winston Santiago Please evaluate numb er 30 for RCT, thank you., [facility] Please evaluate numb er 30 for RCT, thank you. | XRAY TAKEN 09/13/2020, [facility] Next Appt Details PRN Reason:PRN Provider Name:JOSE BANEGAS, 2022-09-02 10:15:00 AM, [address] [place] [address], [id number], [place], [address], Provider Name:ARPITA Butler, 2022-09-02 10:30:00 AM, [address] [place] [address], [id number], [place], [address], Provider Name:MERISSA NIX , 2022-10-17 03:00:00 PM, [address] [place] [address], [id number], [place], [address], Provider Name:CINDY JOYA, 2023-03-19 01:00:00 PM, [address] [place] [address], [id number], [place], [address], Follow Up:PRNPRN Insurance Providers Payer Name Payer Address Payer Phone Insured Name Patient Relationship to Insured Coverage Start Date Coverage End Date Subscriber Number Group Number MELISSA MD Ins[employer]ON [address] [facility] [id number] Rosemary Zuniga Self - patient is the insured [id number] [place] [address] [address] [facility] [address] Rosemary Zuniga Self - patient is the insured [id number] [address] [facility] [address] Rosemary Zuniga Self - patient is the insured [id number] [facility] 19 [address] [facility] [address] Rosemary Zuniga Self - patient is the insured [id number] NON FQHC [facility] 19 [address] [facility] [address] Rosemary Zuniga Self - patient is the insured [id number]
--- OUTSIDE RECORDS SUMMARY | 2023-01-29 05:37 | XMS REPORT ---
Author Author [facility]ly [facility] ter of [facility] ter of [facility] Address Unknown Phone Unavailable Care Team Providers Care Girls Tennis Coach Name Role Phone AMOR IRELAND Unavailable PROBLEMS Type Condition ICD9-CM Code [id number] Code Onset Dates Condition Status W/U Status Risk SNOMED Code Notes Problem Acute stress reaction with predominately emotional disturbance F43.9 confirmed 76919102 Problem Episode of recurrent major depressive disorder, unspecified depression episode severity F33.9 confirmed 816237895 Problem Anxiety F41.9 confirmed 47497268 Problem Severe episode of recurrent major depressive disorder, without psychotic features F33.2 confirmed 46733953 Problem Complex 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 confirmed 850023069 Problem 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 confirmed 51400157 Problem Pelvic congestion syndrome N94.89 confirmed 92162118 Problem Dysuria R30.0 confirmed 89895761 Problem Seasonal allergies J30.2 confirmed 043324045 Problem Borderline personality disorder F60.3 confirmed 82376289 Problem Irregular periods N92.6 confirmed 66070367 Problem Vaginal bleeding N93.9 confirmed 470649782 Problem Amenorrhea N91.2 confirmed 93999411 Problem Abnormal uterine bleeding N93.9 confirmed 0759010610 9100 Problem Positive test Z32.01 confirmed 371904322 Problem Seasonal allergic rhinitis due to pollen J30.1 confirmed 98044141 Problem Missed period N92.6 confirmed 555957 00 Problem Fever R50.9 confirmed 125596012 Problem Discharge from the vagina N89.8 confirmed 48672163 Problem Mood disorder F39 confirmed 851452 05 Problem Allergic rhinitis, unspecified seasonality, unspecified trigger J30.9 confirmed 45951643 Problem Major depressive disorder, recurrent severe without psychotic features F33.2 confirmed 43208161 Problem Leg paresthesia R20.2 confirmed 435161049 ALLERGIES Allergen (clinical drug ingredient) Drug/Non Drug Allergy documented on EMR Reaction Allergy Type Onset Date Status Rocephin hives Drug Allergy Active IV Contrast rash/reddened skin Non Drug Allergy Active tramadol Tramadol HCl([facility] Code:[address]-08 ) rash Drug Allergy Active ENCOUNTERS from 1996 to 2022-08-27 Encounter Location Date Provider Diagnosis [facility] [address] [facility] [id number] [place] [address] Aug, CRYSTAL SHU IMMUNIZATIONS Vaccine Route Administration Date [...] 28, 1997 Adminloulou morales dtap (history) Unknown 1996 Administered dtap (history) [...] 7 days May, Not-Taking REASON FOR VISIT Requests return call MEDICAL [...] Details Provider Name:JOSE BANEGAS, 2022-09-02 10:15:00 AM, [address] [place] [address], [id number], [place], [address], Provider Name:ARPITA Butler, 2022-09-02 10:30:00 AM, [address] [place] [address], [id number], [place], [address], Provider Name:MERISSA NIX , 2022-10-17 03:00:00 PM, [address] [place] [address], [id number], [place], [address], Provider Name:CINDY JOYA, 2023-03-19 01:00:00 PM, [address] [place] [address], [id number], [place], [address], Insurance Providers Payer Name Payer Address Payer Phone Insured Name Patient Relationship to Insured Coverage Start Date Coverage End Date Subscriber Number Group Number MELISSA [facility] [address] [facility] [address] Rosemary Zuniga Self - patient is the insured [id number] MELISSA VIVAR 19 [facility] [address] [facility] DENTAL [facility] [address] Rosemary Zuniga Self - patient is the insured [id number] NON FQHC [facility] 19 [address] [facility] [address] Rosemary Zuniga Self - patient is the insured [id number] NON FQHC [address] [facility] [address] Rosemary Zuniga Self - patient is the insured [id number] [facility] 19 [address] [facility] [address] Rosemary Zuniga Self - patient is the insured [id number]
--- OUTSIDE RECORDS SUMMARY | 2023-01-29 05:37 | XMS REPORT ---
Author Author [facility] ter of [facility] ter of [facility] Address Unknown Phone Unavailable Care Team Providers Care Life Guard Name Role Phone BARRETT Redman Unavailable [phone] PROBLEMS Type Condition ICD9-CM Code XKA99-IM Code Onset Dates Condition Status W/U Status Risk SNOMED Code Notes Problem Acute stress reaction with predominately emotional disturbance F43.9 confirmed 87759517 Problem Episode of recurrent major depressive disorder, unspecified depression episode severity F33.9 confirmed 684742537 Problem Anxiety F41.9 confirmed 99982973 Problem Severe episode of recurrent major depressive disorder, without psychotic features F33.2 confirmed 84206699 Problem Complex 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 confirmed 921374751 Problem 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 confirmed 12256611 Problem Pelvic congestion syndrome N94.89 confirmed 06996084 Problem Dysuria R30.0 confirmed 87329672 Problem Seasonal allergies J30.2 confirmed 638845689 Problem Borderline personality disorder F60.3 confirmed 54615213 Problem Irregular periods N92.6 confirmed 51538648 Problem Vaginal bleeding N93.9 confirmed 382503674 Problem Amenorrhea N91.2 confirmed 71414134 Problem Abnormal uterine bleeding N93.9 confirmed 3325196966 9100 Problem Positive test Z32.01 confirmed 650264785 Problem Seasonal allergic rhinitis due to pollen J30.1 confirmed 98612159 Problem Missed period N92.6 confirmed 116817 00 Problem Fever R50.9 confirmed 195453175 Problem Discharge from the vagina N89.8 confirmed 47640194 Problem Mood disorder F39 confirmed 685095 05 Problem Allergic rhinitis, unspecified seasonality, unspecified trigger J30.9 confirmed 50745696 Problem Major depressive disorder, recurrent severe without psychotic features F33.2 confirmed 46350125 Problem Leg paresthesia R20.2 confirmed 030179211 ALLERGIES Allergen (clinical drug ingredient) Drug/Non Drug Allergy documented on EMR Reaction Allergy Type Onset Date Status Rocephin hives Drug Allergy Active IV Contrast rash/reddened skin Non Drug Allergy Active tramadol Tramadol HCl([facility] Code:[address]-97 ) rash Drug Allergy Active ENCOUNTERS from 1996 to 2022-08-27 Encounter Location Date Provider Diagnosis [facility] [address] [facility] [id number] [place] [address] May, BARRETT Redman Borderline personality disorder F60.3 and Complex 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 IMMUNIZATIONS Vaccine Route Administration Date Status comvax [...] 7 days May, Not-Taking REASON FOR VISIT [phone] MEDICAL (GENERAL) HISTORY Type Description Date Medical [...] Assessment Notes Treatment Notes Treatment Clinical Notes May, Complex posttraumati c stress disorder (ICD-10 - F43.10) May, Borderline personality disorder (ICD-10 - F60.3) PLAN OF TREATMENT Next Appt Details 1-2 Weeks Reason: Follow U p Provider Name:JOSE BANEGAS, 2022-09-02 10:15:00 AM, [address] [place] [address], [id number], [place], [address], Provider Name:ARPITA Butler, 2022-09-02 10:30:00 AM, [address] [place] [address], [id number], [place], [address], Provider Name:MERISSA NIX , 2022-10-17 03:00:00 PM, [address] [place] [address], [id number], [place], [address], Provider Name:CINDY JOYA, 2023-03-19 01:00:00 PM, [address] [place] [address], [id number], [place], [address], Follow Up:1-2 WeeksBH Follow Up Insurance Providers Payer Name Payer Address Payer Phone Insured Name Patient Relationship to Insured Coverage Start Date Coverage End Date Subscriber Number Group Number MELISSA GRANGER [address] [facility] [address] [phone] Rosemary Zuniga Self - patient is the insured [id number] [facility] [address] [facility] [address] Rosemary Zuniga Self - patient is the insured [id number] [facility] 19 [address] [facility] [address] Rosemary Zuniga Self - patient is the insured [id number] [facility] 19 [address] [facility] [address] Rosemary Zuniga Self - patient is the insured [id number] NON FQHC [address] [facility] [address] [phone] Rosemary Zuniga Self - patient is the insured [id number]
--- OUTSIDE RECORDS SUMMARY | 2023-01-29 05:37 | XMS REPORT ---
Author Author Formerly [facility] ter of [facility] ter of [facility] Address Unknown Phone Unavailable Care Team Providers Care Ingot Stripper Name Role Phone BARRETT Redman Unavailable [phone] PROBLEMS Type Condition ICD9-CM Code HAM07-UV Code Onset Dates Condition Status W/U Status Risk SNOMED Code Notes Problem Acute stress reaction with predominately emotional disturbance F43.9 confirmed 17947485 Problem Episode of recurrent major depressive disorder, unspecified depression episode severity F33.9 confirmed 369379171 Problem Anxiety F41.9 confirmed 35880700 Problem Severe episode of recurrent major depressive disorder, without psychotic features F33.2 confirmed 99711968 Problem Complex 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 confirmed 880288778 Problem 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 confirmed 15601032 Problem Pelvic congestion syndrome N94.89 confirmed 75295645 Problem Dysuria R30.0 confirmed 07330238 Problem Seasonal allergies J30.2 confirmed 158291554 Problem Borderline personality disorder F60.3 confirmed 42584392 Problem Irregular periods N92.6 confirmed 78458592 Problem Vaginal bleeding N93.9 confirmed 365262826 Problem Amenorrhea N91.2 confirmed 01082874 Problem Abnormal uterine bleeding N93.9 confirmed 9520991117 9100 Problem Positive test Z32.01 confirmed 052355108 Problem Seasonal allergic rhinitis due to pollen J30.1 confirmed 57903949 Problem Missed period N92.6 confirmed 005079 00 Problem Fever R50.9 confirmed 541225498 Problem Discharge from the vagina N89.8 confirmed 99860212 Problem Mood disorder F39 confirmed 887169 05 Problem Allergic rhinitis, unspecified seasonality, unspecified trigger J30.9 confirmed 25794475 Problem Major depressive disorder, recurrent severe without psychotic features F33.2 confirmed 25033654 Problem Leg paresthesia R20.2 confirmed 021526630 ALLERGIES Allergen (clinical drug ingredient) Drug/Non Drug Allergy documented on EMR Reaction Allergy Type Onset Date Status Rocephin hives Drug Allergy Active IV Contrast rash/reddened skin Non Drug Allergy Active tramadol Tramadol HCl([facility] Code:[address]-09 ) rash Drug Allergy Active ENCOUNTERS from 1996 to 2022-08-27 Encounter Location Date Provider Diagnosis [facility] [address] [facility] [id number] [place] [address] May, CHARROGERIO Redman Complex 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 [...] days May, Not-Taking REASON FOR VISIT f/u [phone] MEDICAL (GENERAL) HISTORY Type Description Date Medical [...] p Provider Name:JOSE BANEGAS, 2022-09-02 10:15:00 AM, [address] [place] [address], [id number], [place], [address], Provider Name:ARPITA Butler, 2022-09-02 10:30:00 AM, [address] [place] [address], [id number], [place], [address], Provider Name:MERISSA NIX , 2022-10-17 03:00:00 PM, [address] [place] [address], [id number], [place], [address], Provider Name:CINYD JOYA, 2023-03-19 01:00:00 PM, [address] [place] [address], [id number], [place], [address], Follow Up:1-2 WeeksBH Follow Up Insurance Providers Payer Name Payer Address Payer Phone Insured Name Patient Relationship to Insured Coverage Start Date Coverage End Date Subscriber Number Group Number NON [address] [facility] [address] [phone] Rosemary Zuniga Self - patient is the insured [id number] [facility] 19 [address] [facility] [address] Rosemary Zuinga Self - patient is the insured [id number] [facility] 19 [address] [facility] [address] Rosemary Zuniga Self - patient is the insured [id number] [facility] 19 [address] [facility] [address] Rosemary Zuniga Self - patient is the insured [id number] [address] [facility] [address] Rosemary Zuniga Self - patient is the insured [id number]
--- OUTSIDE RECORDS SUMMARY | 2023-01-29 05:37 | XMS REPORT ---
Author Author [facility] ter of [facility] ter of [facility] Address Unknown Phone Unavailable Care Team Providers Care Airfield Services Officer Name Role Phone BARERTT Redman Unavailable PROBLEMS Type Condition ICD9-CM Code KCS22-PS Code Onset Dates Condition Status W/U Status Risk SNOMED Code Notes Problem Acute stress reaction with predominately emotional disturbance F43.9 confirmed 71525762 Problem Episode of recurrent major depressive disorder, unspecified depression episode severity F33.9 confirmed 857339364 Problem Anxiety F41.9 confirmed 51266592 Problem Severe episode of recurrent major depressive disorder, without psychotic features F33.2 confirmed 90416849 Problem Complex 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 confirmed 254950677 Problem 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 confirmed 14631993 Problem Pelvic congestion syndrome N94.89 confirmed 42646597 Problem Dysuria R30.0 confirmed 14516877 Problem Seasonal allergies J30.2 confirmed 610636135 Problem Borderline personality disorder F60.3 confirmed 15242291 Problem Irregular periods N92.6 confirmed 29922863 Problem Vaginal bleeding N93.9 confirmed 029322531 Problem Amenorrhea N91.2 confirmed 39662050 Problem Abnormal uterine bleeding N93.9 confirmed 7599988631 9100 Problem Positive test Z32.01 confirmed 424607040 Problem Seasonal allergic rhinitis due to pollen J30.1 confirmed 56027535 Problem Missed period N92.6 confirmed 676247 00 Problem Fever R50.9 confirmed 722579592 Problem Discharge from the vagina N89.8 confirmed 33208533 Problem Mood disorder F39 confirmed 222386 05 Problem Allergic rhinitis, unspecified seasonality, unspecified trigger J30.9 confirmed 97532495 Problem Major depressive disorder, recurrent severe without psychotic features F33.2 confirmed 33519548 Problem Leg paresthesia R20.2 confirmed 150395794 ALLERGIES Allergen (clinical drug ingredient) Drug/Non Drug Allergy documented on EMR Reaction Allergy Type Onset Date Status Rocephin hives Drug Allergy Active IV Contrast rash/reddened skin Non Drug Allergy Active tramadol Tramadol HCl([facility] Code:[address]-85 ) rash Drug Allergy Active ENCOUNTERS from 1996 to 2022-08-26 Encounter Location Date Provider Diagnosis [facility] [address] [facility] [id number] [place] [address] May, CHARROGERIO Redman Complex 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 and Borderline personality disorder F60.3 IMMUNIZATIONS Vaccine Route Administration Date Status tdap [...] days May, Not-Taking REASON FOR VISIT f/u MEDICAL (GENERAL) HISTORY [...] p Provider Name:JOSE BANEGAS, 2022-09-02 10:15:00 AM, [address] [place] [address], [id number], [place], [address], Provider Name:ARPITA Butler, 2022-09-02 10:30:00 AM, [address] [place] [address], [id number], [place], [address], Provider Name:MERISSA NIX , 2022-10-17 03:00:00 PM, [address] [place] [address], [id number], [place], [address], Provider Name:CINDY JOYA, 2023-03-19 01:00:00 PM, [address] [place] [address], [id number], [place], [address], Follow Up:1-2 WeeksBH Follow Up Insurance Providers Payer Name Payer Address Payer Phone Insured Name Patient Relationship to Insured Coverage Start Date Coverage End Date Subscriber Number Group Number MELISSA [facility] 19 [address] [facility] [address] Rosemary Zuniga Self - patient is the insured [id number] NON [facility] 19 [address] [facility] [address] Rosemary Zuniga Self - patient is the insured [id number] [facility] 19 [address] [facility] [address] [phone] Rosemary Zuniga Self - patient is the insured [id number] NON FQHC [address] [facility] [address] Rosemary Zuniga Self - patient is the insured [id number] [address] [facility] [address] Rosemary Zuniga Self - patient is the insured [id number]
--- OUTSIDE RECORDS SUMMARY | 2023-01-29 05:37 | XMS REPORT ---
Author Author [facility] ter of [facility] ter of [facility] Address Unknown Phone Unavailable Care Team Providers Care Leather Coverer Name Role Phone CINDY TANG Unavailable [phone] PROBLEMS Type Condition ICD9-CM Code EXS00-BC Code Onset Dates Condition Status W/U Status Risk SNOMED Code Notes Problem Acute stress reaction with predominately emotional disturbance F43.9 confirmed 00696072 Problem Episode of recurrent major depressive disorder, unspecified depression episode severity F33.9 confirmed 848995724 Problem Anxiety F41.9 confirmed 65499948 Problem Severe episode of recurrent major depressive disorder, without psychotic features F33.2 confirmed 65265801 Problem Complex 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 confirmed 995069805 Problem 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 confirmed 48471851 Problem Pelvic congestion syndrome N94.89 confirmed 88673826 Problem Dysuria R30.0 confirmed 27701966 Problem Seasonal allergies J30.2 confirmed 462188727 Problem Borderline personality disorder F60.3 confirmed 94725518 Problem Irregular periods N92.6 confirmed 51057692 Problem Vaginal bleeding N93.9 confirmed 772577449 Problem Amenorrhea N91.2 confirmed 71146193 Problem Abnormal uterine bleeding N93.9 confirmed 1434839478 9100 Problem Positive test Z32.01 confirmed 632270227 Problem Seasonal allergic rhinitis due to pollen J30.1 confirmed 80881776 Problem Missed period N92.6 confirmed 557752 00 Problem Fever R50.9 confirmed 137966935 Problem Discharge from the vagina N89.8 confirmed 69332447 Problem Mood disorder F39 confirmed 992650 05 Problem Allergic rhinitis, unspecified seasonality, unspecified trigger J30.9 confirmed 29564078 Problem Major depressive disorder, recurrent severe without psychotic features F33.2 confirmed 35278233 Problem Leg paresthesia R20.2 confirmed 526986152 ALLERGIES Allergen (clinical drug ingredient) Drug/Non Drug Allergy documented on EMR Reaction Allergy Type Onset Date Status Rocephin hives Drug Allergy Active IV Contrast rash/reddened skin Non Drug Allergy Active tramadol Tramadol HCl([facility] Code:[address]-45 ) rash Drug Allergy Active ENCOUNTERS from 1996 to 2022-08-25 Encounter Location Date Provider Diagnosis [facility] [address] [facility] [id number] [place] [address] 16 Aug, 2020 CINDY TANG Severe episode of recurrent [...] In Provider Name:JOSE BANEGAS, 2022-09-02 10:15:00 AM, [address] [place] [address], [id number], [place], [address], Provider Name:ARPITA Butler, 2022-09-02 10:30:00 AM, [address] [place] [address], [id number], [place], [address], Provider Name:MERISSA NIX , 2022-10-17 03:00:00 PM, [address] [place] [address], [id number], [place], [address], Provider Name:CINDY JOYA, 2023-03-19 01:00:00 PM, [address] [place] [address], [id number], [place], [address], Follow Up:prnCheck In Insurance Providers Payer Name Payer Address Payer Phone Insured Name Patient Relationship to Insured Coverage Start Date Coverage End Date Subscriber Number Group Number MELISSA [facility] 19 [address] [facility] [address] Rosemary Zuniga Self - patient is the insured [id number] [facility] 19 [address] [facility] [address] Rosemary Zuniga Self - patient is the insured [id number] NON FQ[address] [facility] [address] Rosemary Zuniga Self - patient is the insured [id number] [facility] 19 [address] [facility] [phone] Rosemary Zuniga Self - patient is the insured [id number] [address] [facility] [address] [phone] Rosemary Zuniga Self - patient is the insured [id number]
[2023-01-29 05:45] LABS: BASOPHILS % (AUTO) 1 % (0-10); EOSINOPHILS # (AUTO) 0.1 10^3/uL (0.0-0.3); EOSINOPHILS % (AUTO) 1 % (0-10); HEMATOCRIT 36 % (35-52); HEMOGLOBIN 11.9 g/dL (11.5-16.0); LYMPHOCYTES # (AUTO) 2.1 10^3/uL (1.0-4.0); LYMPHOCYTES % (AUTO) 29 % (12-44); MEAN CORPUSCULAR HEMOGLOBIN 33 pg (25-34); MEAN CORPUSCULAR HGB CONC 33 g/dL (32-36); MEAN CORPUSCULAR VOLUME 101 fL (80-99); MEAN PLATELET VOLUME 11.5 fL (9.0-12.2); MONOCYTES # (AUTO) 0.5 10^3/uL (0.0-1.0); MONOCYTES % (AUTO) 6 % (0-12); NEUTROPHILS # (AUTO) 4.5 10^3/uL (1.8-7.8); NEUTROPHILS % (AUTO) 62 % (42-75); PLATELET COUNT 160 10^3/uL (130-400); WHITE BLOOD COUNT 7.2 10^3/uL (4.3-11.0)
[2023-01-29] MEDS: LACTATED RINGERS 1,000 ML 1,000 ML IV PRN ×2 (06:11→08:01)
[2023-01-29] MEDS ORDERED: fentaNYL INJECTION 100 MCG/2 ML VIAL ONE (07:07)
[2023-01-29] MEDS ORDERED: dexAMETHasone INJ 10 MG/ML 1 ML VIAL ONE (07:07)
[2023-01-29] MEDS ORDERED: ONDANSETRON INJECTION 4 MG/2 ML (SDV) ONE (07:07)
[2023-01-29] MEDS ORDERED: OXYTOCIN DRIP PRE-MIX 500 ML IV ONE (07:16)
--- NOTE | 2023-01-29 07:24 | Discharge Inst-Women's Service ---
Discharge Inst-Women's Serv Depart Medication/Instructions New, Converted or Re-Newed RX: Transmitted to Pharmacy Problems Reviewed?: Yes Consults/Follow Up Additional Follow Up: Yes Activity Activity: Activity as Tolerated Driving Instructions: No Driving for 1 Week NO SMOKING: NO SMOKING Nothing Inside Vagina: No Douching, No [place], No Tampons Diet Discharge Diet: No Restrictions Symptoms to Report to : Bleeding Excessive, Pain Increased, Fever Over 101 Degrees F, Vaginal Bleeding Increase, Questions/Concerns For Any Problems or Questions: Contact Your Physician Skin/Wound Care Infection Signs and Symptoms: Increased Redness, Foul Odor of Wound, Increased Drainage, Skin Itchy or Has a Rash, Increased Swelling, Temperature Above 101 F Operative Area Clean and Dry: Keep Incision Clean/Dry Stitches/Sulphur/Dermabond: Dermabond, Care of Stitches Bathing Instructions: ROBERT Barreto DO Jan 29, 2023 07:24
--- NOTE | 2023-01-29 07:24 | History & Physical-OB ---
OB - Chief Complaint & HPI Date/Time Date of Admission: Date of Admission: Jan 29, 2023 at 05:14 Date seen by a Provider: Jan 29, 2023 Time Seen by a Provider: 07:15 Chief Complaint/History OB-Reason for Admission/Chief: Section Hx : 7 Hx Para: 3 Expected Date of Delivery: Feb 05, 2023 Gestational Age in Weeks: 39 Gestational Age in Days: 0 Indication for : desires repeat Admission Nurse Assessment Rev: Yes History of Labs A pos Antibody neg RI RPR NR HBsAg NR HIV NR GC neg GBS neg Allergies and Home Medications Allergies Coded Allergies: ceftriaxone (Verified Allergy, Mild, RASH, 08/03/21) tramadol (Unverified Allergy, Unknown, 08/03/21) Uncoded Allergies: IV contrast (Allergy, Unknown, 08/03/21) Patient Home Medication List Home Medication List Reviewed: Yes Acetaminophen (Tylenol Extra Strength) 500 Mg Tablet, 1,000 MG PO PRN, (Reported) Entered as Reported by: ABDIRAHMAN BLEVINS on 01/12/23 0414 Loratadine (Claritin) 5 Mg Tab.rapdis, 5 MG PO HS, (Reported) Entered as Reported by: ALAINA WILBURN on 01/07/23 1122 Vit W-Ca,Fe,FA(<1 mg) ( Vitamins) 1 Each Tablet, 1 EACH PO DAILY, (Reported) Entered as Reported by: MILES SPANGLER on 11/18/20 0049 OB - History Hx of Present Care: Yes Ultrasounds: Normal mid trimester US Obstetrical Complications: None Medical Complications: None Delivery History Hx Blood Disorders: No Adverse Rxn to Tranfusion: No Patient Past Medical History n/a Social History/Family History 2nd Hand Smoke Exposure: No Immunizations Influenza Vaccine Up-to-Date: Yes; Up-to-Date First/Initial COVID19 Vaccine: na Tetanus Booster (TDap): Unknown OB - Admission Exam Physical Exam Vitals: Vital Signs 01/29/23 05:54 Pulse 67 Resp 18 B/P (MAP) 120/70 (87) O2 Delivery Room Air HEENT: NCAT Heart: Rhythm Normal Lungs: Clear Abdomen: Gravid Extremities: Normal Reflexes: Normal Heart Rate: 130's Accelerations: Accelerations Present Decelerations: No Decelerations Short Term Variability: Present Machine Operator Hop Worker Variability: Average (6-25) Contractions on Admission: >10 Minutes Apart Intensity: Mild Labs Laboratory Tests Test 01/29/23 05:41 Range/Units White Blood Count 7.2 4.3-11.0 10^3/uL Red Blood Count 3.57 L 3.80-5.11 10^6/uL Hemoglobin 11.9 11.5-16.0 g/dL Hematocrit 36 35-52 % Mean Corpuscular Volume 101 H 80-99 fL Mean Corpuscular Hemoglobin 33 25-34 pg Mean Corpuscular Hemoglobin Concent 33 32-36 g/dL Red Cell Distribution Width 13.2 10.0-14.5 % Platelet Count 160 130-400 10^3/uL Mean Platelet Volume 11.5 9.0-12.2 fL Immature Granulocyte % (Auto) 1 % Neutrophils (%) (Auto) 62 42-75 % Lymphocytes (%) (Auto) 29 12-44 % Monocytes (%) (Auto) 6 0-12 % Eosinophils (%) (Auto) 1 0-10 % Basophils (%) (Auto) 1 0-10 % Neutrophils # (Auto) 4.5 1.8-7.8 10^3/uL Lymphocytes # (Auto) 2.1 1.0-4.0 10^3/uL Monocytes # (Auto) 0.5 0.0-1.0 10^3/uL Eosinophils # (Auto) 0.1 0.0-0.3 10^3/uL Basophils # (Auto) 0.0 0.0-0.1 10^3/uL Immature Granulocyte # (Auto) 0.0 0.0-0.1 10^3/uL OB - Assessment/Plan/Diagnosis Assessment Assessment: section Admission Dx 27 yo @ 39 weeks Previous x 3 GBS neg Admission Status: Inpatient Order (span 2 midnights) Reason for Inpatient Admission: Repeat at 39 weeks Plan Plan: Section ROBERT VALDEZ DO Jan 29, 2023 07:24
[2023-01-29] MEDS ORDERED: DOCU100C37 PO (07:25)
[2023-01-29] MEDS ORDERED: IBUP-844 PO (07:25)
[2023-01-29] MEDS ORDERED: ACHD5005 PO (07:25)
[2023-01-29] MEDS ORDERED: NALOXONE 0.4 MG/ML 1 ML VIAL IV PRN (07:30)
[2023-01-29] MEDS ORDERED: OXYTOCIN DRIP PRE-MIX 500 ML IV SCH (07:30)
[2023-01-29] MEDS ORDERED: MEASLES, MUMPS, RUBELLA VACCINE (MMR) SC SCH (07:30)
[2023-01-29] MEDS ORDERED: Tetanus/Diphtheria/Pertussis (Acell) ADULT Vaccine 0.5 ML IM SCH (07:30)
[2023-01-29] MEDS ORDERED: ONDANSETRON INJECTION 4 MG/2 ML (SDV) IVP PRN (07:30)
[2023-01-29] MEDS ORDERED: PHENYLEPHRINE 100 MCG/ML 10 ML (ANESTHESIA) SYR ONE (07:42)
[2023-01-29] MEDS ORDERED: BUPIVACAINE 0.5% 30 ML VIAL ONE (07:58)
[2023-01-29] MEDS: KETOROLAC INJ 30 MG/ML VIAL IV SCH ×3 (08:30→21:12)
[2023-01-29] MEDS: DOCUSATE SODIUM 100 MG CAPSULE PO SCH ×2 (09:55→21:12)
--- NOTE | 2023-01-29 12:01 | Anesthesia-General Post-Op ---
MAC Patient Condition Mental Status/LOC: Same as Preop Cardiovascular: Satisfactory Nausea/Vomiting: Absent Respiratory: Satisfactory Pain: Controlled Complications: Absent Post Op Complications Complications None Follow Up Care/Instructions Patient Instructions None needed. Anesthesiology Discharge Order Discharge Order Patient is doing well, no complaints, stable vital signs, no apparent adverse anesthesia problems. No complications reported per nursing. LYSSA LUKE CRNA Jan 29, 2023 12:00
[2023-01-29] MEDS: HYDROcodone/ACETAMINOPHEN 5 MG/325 MG TABLET PO PRN ×2 (12:56→19:01)
[2023-01-29] MEDS: CATHETER FLUSH 10 ML SYR IV SCH ×2 (14:00→21:13)
--- NOTE | 2023-01-29 15:56 | OPERATIVE REPORT ---
PREOPERATIVE DIAGNOSES: 1. A 27-year-old at 39 weeks' gestation. 2. Previous section. POSTOPERATIVE DIAGNOSES: 1. A 27-year-old at 39 weeks' gestation. 2. Previous section. PROCEDURE: Repeat low transverse section. SURGEON: Javon Randolph DO CATTLE SPRAYER: Christie Hernandez who was necessary for manipulation and retraction throughout the procedure. ANESTHESIA: Spinal. ESTIMATED BLOOD LOSS: 500 mL URINE OUTPUT: Minimal. FLUIDS: 2000 mL lactated Ringer's solution. FINDINGS: A live male weighing 7 pounds 9 ounces, Apgars of 8 and 9. Grossly normal appearing uterus, bilateral tubes and ovaries. SPECIMEN SENT: None. INDICATIONS FOR PROCEDURE: This 27-year-old female was a patient who had sought care in my office. Her care was complicated with the exception of need for repeat . This with her fourth , she has had 3 prior. I discussed with the patient the risk of procedure. After all of her questions were answered, she was agreeable to proceed. Consent was obtained. The patient was taken to the operating room. OPERATIVE DESCRIPTION IN DETAIL: Once in the operating room, spinal analgesia was found to be adequate, was placed in supine position with leftward tilt, prepped and draped in normal sterile fashion. Timeout was performed. Anesthesia was tested and then make a Pfannenstiel skin incision through the previously existing scar using knife and carried down to the underlying fascia using Bovie cautery. The fascial incision extended laterally using Bovie cautery. Superior aspect of fascial incision was then grasped with Kellee clamps, tented up and dissected off the underlying rectus muscles. The inferior aspect of the fascial incision was then grasped with Kellee clamps, tented up and dissected off the underlying rectus muscles. Rectus muscles were dissected down the midline using sharp dissection, which exposed the peritoneum, which I entered bluntly using blunt traction. Jason ring retractor was placed in the peritoneal incision, which offers excellent lateral sidewall retraction. I identified lower uterine segment, was found to be thinned out and make a low transverse incision to the vesicouterine peritoneum and bluntly dissected off the lower uterine segment, creating a bladder flap. I then proceeded with my myotomy until membranes were visualized, at which point I extended the uterine incision laterally and superiorly using bandage scissors. Amniotomy was performed in the process of doing this, clear fluid was noted. Infant was found in vertex presentation with gentle fundal pressure, the 's head elevated and delivered through the incision where the nares and oropharynx were bulb suctioned. Anterior and posterior shoulders were delivered. The infant was brought to the operative field where cords were clamped and cut and was handed off to waiting nurses in attendance. Cord blood was collected. Three-vessel cord with intact placenta was delivered spontaneously thereafter. IV Pitocin was initiated to facilitate uterine contraction. Uterine fundus confirmed by manual massage. The uterus was then exteriorized and cleared off endometrial clots and debris. I then proceeded with closing the uterine incision using 0 Vicryl suture in a running locked fashion. Second imbricating 0 Monocryl was placed. Excellent hemostasis was noted after doing this. I then placed the uterus back in the pelvis and copiously irrigated the pelvis using normal saline. Once again, there was no active bleeding noted from any of my dissection planes. I placed Interceed antiadhesive over my low transverse incision. I removed the Jason ring retractor and then proceeded with closing the peritoneum using 3-0 Vicryl suture in a running fashion. The rectus muscles were reapproximated using 3-0 Vicryl suture in interrupted fashion. The fascia was reapproximated using 0 Vicryl suture in a running fashion and the skin reapproximated using 4-0 Monocryl running subcuticular. Dermabond was applied to incision, sterile dressing with adhesive white tape. The patient tolerated the procedure well and sent to recovery area in stable condition. Lap and sponge count was correct at the end of the procedure. Instrument counts correct as well. Two grams of Ancef were given preoperatively for infection prophylaxis. Job ID: [id number] DocumentID: [id number] Dictated Date: 01/29/2023 08:25:37 Human Resources Intern Date: 01/29/2023 15:54:00 Dictated By: DO MARK ANTHONY FUNES
[2023-01-29] MEDS: SIMETHICONE 80 MG CHEWABLE TABLET PO SCH (22:16)
[2023-01-30] VITALS: BP 114/73
[2023-01-30 03:49] VITALS: BP 106/64
[2023-01-30] MEDS: HYDROcodone/ACETAMINOPHEN 5 MG/325 MG TABLET PO PRN ×3 (03:49→16:44)
[2023-01-30] MEDS: CATHETER FLUSH 10 ML SYR IV SCH (03:49)
[2023-01-30] MEDS: KETOROLAC INJ 30 MG/ML VIAL IV SCH (03:49)
[2023-01-30 05:48] LABS: LYMPHOCYTES # (AUTO) 2.4 10^3/uL (1.0-4.0); MEAN CORPUSCULAR VOLUME 100 fL (80-99); MONOCYTES # (AUTO) 0.7 10^3/uL (0.0-1.0)
[2023-01-30 05:50] LABS: BASOPHILS % (AUTO) 0 % (0-10); EOSINOPHILS # (AUTO) 0.1 10^3/uL (0.0-0.3); EOSINOPHILS % (AUTO) 1 % (0-10); HEMATOCRIT 28 % (35-52); HEMOGLOBIN 9.2 g/dL (11.5-16.0); LYMPHOCYTES % (AUTO) 25 % (12-44); MEAN CORPUSCULAR HEMOGLOBIN 33 pg (25-34); MEAN CORPUSCULAR HGB CONC 34 g/dL (32-36); MEAN PLATELET VOLUME 11.6 fL (9.0-12.2); MONOCYTES % (AUTO) 7 % (0-12); NEUTROPHILS # (AUTO) 6.5 10^3/uL (1.8-7.8); NEUTROPHILS % (AUTO) 66 % (42-75); PLATELET COUNT 139 10^3/uL (130-400); WHITE BLOOD COUNT 9.8 10^3/uL (4.3-11.0)
--- NOTE | 2023-01-30 06:56 | Anesthesia-Regional Post-Op ---
Regional Patient Condition Mental Status: Alert, Oriented x3 Circulation: Same as Pre-Op Headache: Absent Sensation: Full Recovery Motor Block: Absent Post Op Complications Complications None Follow Up Care/Instructions Patient Instructions None needed. Anesthesia/Patient Condition Patient is doing well, no complaints, stable vital signs, no apparent adverse anesthesia problems. No complications reported per nursing. ROBERTA DIEHL CRNA Jan 30, 2023 06:56
--- NOTE | 2023-01-30 08:11 | Postpartum Progress Note ---
Post Op Post-operative Day #1 Subjective: Patient is without complaints. Ambulating, voiding after [place] removed. Tolerating a regular diet without nausea or vomiting. Normal lochia. Pain is well controlled with oral pain medications. Breast feeding. [] Objective: VSSAF Physical Exam: General - Alert and oriented, no apparent distress Breasts symmetrical no erythema or engorgement Abdomen - Soft, appropriately tender to palpation, non-distended, fundus firm at umbilicus Incision - clean, dry and intact; no erythema or induration, no drainage Extremities - no edema, negative Mica's bilaterally Assessment: [] post-operative day # 1, status post LTCS. Recovering well, hemodynamically stable Plan: Routine post-operative care. Encourage breast feeding. Encourage ambulation. VTE prophylaxis: SCDs. Ferrous sulfate supplementation. Plan for discharge [] Vitals - Labs Vital Signs - I&O Vital Signs Date Time Temp Pulse Resp B/P (MAP) Pulse Ox O2 Delivery O2 Flow Rate FiO2 01/30/23 03:49 36.3 63 18 106/64 (78) 99 Room Air 01/30/23 00:00 36.7 72 18 114/73 (87) 99 Room Air 01/29/23 20:00 36.6 57 18 115/65 (82) 99 Room Air 01/29/23 15:28 36.9 72 18 124/72 (89) 97 Room Air 01/29/23 12:53 36.3 69 18 119/69 (86) 96 Room Air 01/29/23 10:31 37.0 51 18 112/63 (79) 99 Room Air 01/29/23 09:35 Room Air 01/29/23 09:35 36.2 18 117/79 (92) 100 Room Air 01/29/23 09:25 36.0 18 120/74 (89) 100 Room Air 01/29/23 09:25 Room Air 01/29/23 09:10 Room Air 01/29/23 09:10 36.0 18 121/78 (92) 100 Room Air 01/29/23 08:55 36.0 18 116/74 (88) 99 Room Air 01/29/23 08:55 Room Air 01/29/23 08:40 Room Air 01/29/23 08:40 36.2 18 110/61 (77) 97 Room Air I & O 01/30/23 07:00 Intake Total 2150 ml Output Total 600 ml Balance 1550 ml Labs Laboratory Tests 01/30/23 05:24: White Blood Count 9.8, Red Blood Count 2.76L, Hemoglobin 9.2#L, Hematocrit 28L, Mean Corpuscular Volume 100H, Mean Corpuscular Hemoglobin 33, Mean Corpuscular Hemoglobin Concent 34, Red Cell Distribution Width 13.1, Platelet Count 139, Mean Platelet Volume 11.6, Immature Granulocyte % (Auto) 1, Neutrophils (%) (Auto) 66, Lymphocytes (%) (Auto) 25, Monocytes (%) (Auto) 7, Eosinophils (%) (Auto) 1, Basophils (%) (Auto) 0, Neutrophils # (Auto) 6.5, Lymphocytes # (Auto) 2.4, Monocytes # (Auto) 0.7, Eosinophils # (Auto) 0.1, Basophils # (Auto) 0.0, Immature Granulocyte # (Auto) 0.1, Percent Immature Platelet Fraction 7.2 Microbiology 01/29/23 MRSA Screen - Final, Complete MRSA not isolated CAT QUIROGA DO Jan 30, 2023 08:11
[2023-01-30 09:15] VITALS: BP 118/63
[2023-01-30] MEDS: IBUPROFEN 600 MG TABLET PO SCH ×3 (09:27→21:23)
[2023-01-30] MEDS: DOCUSATE SODIUM 100 MG CAPSULE PO SCH ×2 (09:27→21:23)
[2023-01-30] MEDS: FERROUS SULFATE 325 MG (IRON) TABLET PO SCH ×2 (09:27→18:36)
[2023-01-30] MEDS: SIMETHICONE 80 MG CHEWABLE TABLET PO SCH ×4 (09:28→21:23)
[2023-01-30 12:30] VITALS: BP 107/56
[2023-01-30 16:45] VITALS: BP 118/59
[2023-01-30 21:25] VITALS: BP 120/66
[2023-01-31] MEDS: IBUPROFEN 600 MG TABLET PO SCH ×2 (03:25→09:13)
[2023-01-31 03:30] VITALS: BP 139/85
[2023-01-31] MEDS: HYDROcodone/ACETAMINOPHEN 5 MG/325 MG TABLET PO PRN ×2 (04:52→11:29)
--- NOTE | 2023-01-31 06:50 | Postpartum Progress Note ---
Post Op Post-operative Day #2 Subjective: Patient is postop day #2 she is doing well her pain is well controlled. She had a little bit of drainage from her incision this morning. Patient was up and moving most of the day yesterday per the RN. Patient is breast-feeding. Lochia is normal. Patient would like to go home today. Objective: Vital signs stable afebrile Physical Exam: General - Alert and oriented, no apparent distress Breast symmetrical normal engorgement and the nipples are slightly erythematous from breast-feeding. Abdomen - Soft, appropriately tender to palpation, non-distended, fundus firm at umbilicus Incision -No erythema edema and some slight serosanguineous drainage. No signs or symptoms of infection noted Extremities - no edema, negative Mica's bilaterally Assessment: [] post-operative day #2, status post Low transverse section. Recovering well, hemodynamically stable Plan: Routine post-operative care. Encourage breast feeding. Encourage ambulation. VTE prophylaxis: SCDs. Ferrous sulfate supplementation. Plan for discharge [] Vitals - Labs Vital Signs - I&O Vital Signs Date Time Temp Pulse Resp B/P (MAP) Pulse Ox O2 Delivery O2 Flow Rate FiO2 01/31/23 03:30 36.7 85 18 139/85 (103) 100 Room Air 01/30/23 21:25 36.9 93 18 120/66 (84) 98 Room Air 01/30/23 16:45 36.6 71 18 118/59 (78) 100 Room Air 01/30/23 12:30 36.7 68 18 107/56 (73) 96 Room Air 01/30/23 09:15 36.9 84 18 118/63 (81) 100 Room Air Labs Microbiology 01/29/23 MRSA Screen - Final, Complete MRSA not isolated CAT QUIROGA DO Jan 31, 2023 06:50
--- NOTE | 2023-01-31 06:53 | Discharge Summary ---
Discharge Summary Hospital Course Problems Reviewed?: Yes Hospital Course Date of Admission: Jan 29, 2023 at 05:14 Admission Diagnosis : Family Physician/Provider: Javon Randolph DO Date of Discharge: 01/31/23 Discharge Diagnosis: Status post repeat low transverse section Hospital Course: Patient was admitted for repeat low transverse section where she delivered a liveborn male . She did very well intraoperatively and her course was uneventful. She was discharged home with pain medications and instructions on postop day #2. Labs and Pending Lab Test: Microbiology 01/29/23 MRSA Screen - Final, Complete MRSA not isolated Home Meds Active Docusate Sodium 100 Mg Capsule 100 Mg PO BID PRN Ibu (Ibuprofen) 600 Mg Tablet 600 Mg PO Q6H Hydrocodone-Acetamin 5-325 mg (Hydrocodone/Acetaminophen) 5 Mg-325 Mg Tablet 1-2 Ea PO Q6HR PRN Reported Tylenol Extra Strength (Acetaminophen) 500 Mg Tablet 1,000 Mg PO PRN Claritin (Loratadine) 5 Mg Tab.rapdis 5 Mg PO HS Vitamins ( Vit W-Ca,Fe,FA(<1 mg)) 1 Each Tablet 1 Each PO DAILY Discharge Diet: Regular Diet Symptoms to Report to : Pain Increased, Constipation(Persistant), Fever Over 101 Degrees F, Vaginal Discharge Foul Infection Signs and Symptoms: Increased Redness, Foul Odor of Wound, Increased Drainage, Skin Itchy or Has a Rash, Increased Swelling, Temperature Above 101 F Operative Area Clean and Dry: Keep Incision Clean/Dry Stitches/[place]/Dermabond: Dermabond Discharge Physical Examination Allergies: Coded Allergies: ceftriaxone (Verified Allergy, Mild, RASH, 08/03/21) tramadol (Unverified Allergy, Unknown, 08/03/21) Uncoded Allergies: IV contrast (Allergy, Unknown, 08/03/21) Vitals & I&Os Vital Signs Date Time Temp Pulse Resp B/P (MAP) Pulse Ox O2 Delivery O2 Flow Rate FiO2 01/31/23 03:30 36.7 85 18 139/85 (103) 100 Room Air Discharge Summary Date of Admission Jan 29, 2023 at 05:14 Date of Discharge Discharge Date: Jan 31, 2023 Supervisory-Addendum Brief Verification & Attestation Participated in pt care: history, MDM, physical Personally performed: exam, history, MDM, supervision of care Care discussed with: other Procedures: n/a Results interpretation: Verified all documentation I personally saw and examined this patient and her course CAT QUIROGA DO Jan 31, 2023 06:53
[2023-01-31 09:00] VITALS: BP 119/56
[2023-01-31] MEDS: SIMETHICONE 80 MG CHEWABLE TABLET PO SCH (09:12)
[2023-01-31] MEDS: FERROUS SULFATE 325 MG (IRON) TABLET PO SCH (09:12)
[2023-01-31] MEDS: DOCUSATE SODIUM 100 MG CAPSULE PO SCH (09:12)
[2023-01-31 12:00] VITALS: BP 119/56
== END 2023-01-31 12:00 | disposition home or self-care (01) | DRG 788 ==
LOC: LDRP 05:14
PROVIDERS: ADMIT Obstetrics & Gynecology; ATTEND Obstetrics & Gynecology
PROC: 10D00Z1 Extraction of Products of Conception, Low, Open Approach (ICD-10-PCS; principal; 2023-01-29 07:23)
DX: O34.211 Maternal care for low transverse scar from previous cesarean delivery (principal); Z3A.39 39 weeks gestation of pregnancy; Z37.0 Single live birth
CPT/HCPCS: 36415; 85025; 86850; 86900; 86901; 87081; 94664

== ENCOUNTER 2023-02-01 15:17 | Emergency (ER) | payer MEDICAID ==
[~2023-02-01] VITALS: Ht 162 cm; Wt 68.0 kg
--- NOTE | 2023-02-01 16:09 | ED Integumentary General ---
General Chief Complaint: Post OP Complications/Pain Stated Complaint: PROBLEMS Nursing Triage Note: PT TO ED W/ C/O VAGINAL PAIN, BRUISING ET SWELLING ONSET AFTER C SECTION 01/29/23. DENIES INJURY. NO OTHER C/O VOICED. Source: patient Exam Limitations: no limitations History of Present Illness Date Seen by Provider: Feb 01, 2023 Time Seen by Provider: 15:41 Initial Comments 27-year-old 3-day female presents to the ER with reports of discoloration to labia, swelling and firmness around her incision. She reports she has had some bleeding and clear to yellow-colored drainage from the incision. She denies fevers. She also reports bilateral feet swelling sinc e throughout the . Patient reports that the last time she had this swelling around her , she had a hematoma and a blood clot in her groin region. States she had to be admitted at that time for IV antibiotics. Allergies and Home Medications Allergies Coded Allergies: ceftriaxone (Verified Allergy, Mild, RASH, 08/03/21) tramadol (Unverified Allergy, Unknown, 08/03/21) Uncoded Allergies: IV contrast (Allergy, Unknown, 08/03/21) Patient Home Medication List Home Medication List Reviewed: Yes Acetaminophen (Tylenol Extra Strength) 500 Mg Tablet, 1,000 MG PO PRN, (Reported) Entered as Reported by: ABDIRAHMAN BLEVINS on 01/12/23 0414 Docusate Sodium (Docusate Sodium) 100 Mg Capsule, 100 MG PO BID PRN for C ONSTIPATION-1ST LINE Prescribed by: ROBERT RANDOLPH on 01/29/23 0725 Hydrocodone/Acetaminophen (Hydrocodone-Acetamin 5-325 mg) 5 Mg-325 Mg Tablet, 1- 2 EA PO Q6HR PRN for PAIN-MODERATE (5-7) Prescribed by: ROBERT RANDOLPH on 01/29/23 0726 Ibuprofen (Ibu) 600 Mg Tablet, 600 MG PO Q6H Prescribed by: ROBERT RANDOLPH on 01/29/23 0725 Loratadine (Claritin) 5 Mg Tab.rapdis, 5 MG PO HS, (Reported) Entered as Reported by: ALAINA WILBURN on 01/07/23 1122 Vit W-Ca,Fe,FA(<1 mg) ( Vitamins) 1 Each Tablet, 1 EACH PO DAILY, (Reported) Entered as Reported by: MILES SPANGLER on 11/18/20 6757 Review of Systems Review of Systems Constitutional: see HPI Past Ltkbums-Nlzmlq-Aussvj Hx Patient Social History Tobacco Use?: No Use of E-Cig and/or Vaping dev: No Substance use?: No Alcohol Use?: No Pt feels they are or have been: No Immunizations Up To Date Tetanus Booster (TDap): Unknown PED Vaccines UTD: Yes First/Initial COVID19 Vaccinat: na Second COVID19 Vaccination Khadar: na Third COVID19 Vaccination Date: na Seasonal Allergies Seasonal Allergies: Yes Past Medical History Surgery/Hospitalization HX: WISDOM TEETH REMOVED X 4 D&C X 2 BIRTHMARK/SKIN LESION REMOVED FROM RIGHT LOWER LEG Surgeries: Yes (surgery on RIGHT LOWERleg for lesion removal; DENTAL; D&C X2; X 3) Section Respiratory: No Cardiac: Yes (hx DVT after first ) Deep Vein Thrombosis, Heart Murmur Neurological: No Reproductive Disorders: Yes Female Reproductive Disorders: Menstrual Problems, Ovarian Cyst HIV/AIDS: No Genitourinary: Yes (PELVIC CONGESTION SYNDROME) Gastrointestinal: No Musculoskeletal: No Endocrine: No HEENT: No Cancer: No Psychosocial: Yes (OVERDOSED 2018. SUICIDAL IDEATIONS. ) Anxiety, Suicide Attempts, Depression Integumentary: No Blood Disorders: Yes (DVT, anemia after last delivery) Adverse Reaction/Blood Tranf: No Family Medical History Patient reports no known family medical history. No Pertinent Family Hx Physical Exam Vital Signs Vital Signs - First Documented 02/01/23 15:26 Temp 36.7 Pulse 94 Resp 20 B/P (MAP) 137/71 (93) Pulse Ox 98 O2 Delivery Room Air Capillary Refill : Less Than 3 Seconds General Appearance: WD/WN, no apparent distress Neck: supple, normal inspection Cardiovascular: regular rate, rhythm Respiratory: lungs clear, normal breath sounds, no respiratory distress, no accessory muscle use Extremities: normal range of motion, swelling Neurologic/Psychiatric: alert, normal mood/affect Skin: normal color, warm/dry Skin Problem Location: torso ( incision site) Skin Problem Character: erythema, swelling (Below incision), tenderness, other (Ecchymosis to labia) Progress/Results/Core Measures Results/Orders Lab Results Laboratory Tests Test 02/01/23 16:10 02/01/23 16:14 Range/Units Urine Color YELLOW Urine Clarity CLEAR Urine pH 7.0 5-9 Urine Specific [place] 1.020 1.016-1.022 Urine Protein NEGATIVE NEGATIVE Urine Glucose (UA) NEGATIVE NEGATIVE Urine Ketones NEGATIVE NEGATIVE Urine Nitrite NEGATIVE NEGATIVE Urine Bilirubin NEGATIVE NEGATIVE Urine Urobilinogen 0.2 < = 1.0 MG/DL Urine Leukocyte Esterase NEGATIVE NEGATIVE Urine RBC (Auto) 3+ H NEGATIVE Urine RBC 10-25 H /HPF Urine WBC 5-10 H /HPF Urine Squamous Epithelial Cells 2-5 /HPF Urine Crystals NONE /LPF Urine Bacteria TRACE /HPF Urine Casts NONE /LPF Urine Mucus NEGATIVE /LPF Urine Culture Indicated YES White Blood Count 9.5 4.3-11.0 10^3/uL Red Blood Count 3.15 L 3.80-5.11 10^6/uL Hemoglobin 10.7 L 11.5-16.0 g/dL Hematocrit 32 L 35-52 % Mean Corpuscular Volume 102 H 80-99 fL Mean Corpuscular Hemoglobin 34 25-34 pg Mean Corpuscular Hemoglobin Concent 33 32-36 g/dL Red Cell Distribution Width 13.1 10.0-14.5 % Platelet Count 193 130-400 10^3/uL Mean Platelet Volume 11.2 9.0-12.2 fL Immature Granulocyte % (Auto) 0 % Neutrophils (%) (Auto) 75 42-75 % Lymphocytes (%) (Auto) 16 12-44 % Monocytes (%) (Auto) 5 0-12 % Eosinophils (%) (Auto) 3 0-10 % Basophils (%) (Auto) 0 0-10 % Neutrophils # (Auto) 7.1 1.8-7.8 10^3/uL Lymphocytes # (Auto) 1.5 1.0-4.0 10^3/uL Monocytes # (Auto) 0.5 0.0-1.0 10^3/uL Eosinophils # (Auto) 0.3 0.0-0.3 10^3/uL Basophils # (Auto) 0.0 0.0-0.1 10^3/uL Immature Granulocyte # (Auto) 0.0 0.0-0.1 10^3/uL Sodium Level 144 135-145 MMOL/L Potassium Level 4.0 3.6-5.0 MMOL/L Chloride Level 110 H 98-107 MMOL/L Carbon Dioxide Level 23 21-32 MMOL/L Anion Gap 11 5-14 MMOL/L Blood Urea Nitrogen 7 7-18 MG/DL Creatinine 0.64 0.60-1.30 MG/DL Estimat Glomerular Filtration Rate 125 BUN/Creatinine Ratio 11 Glucose Level 84 70-105 MG/DL Calcium Level 9.5 8.5-10.1 MG/DL Corrected Calcium 10.2 H 8.5-10.1 MG/DL Total Bilirubin 0.5 0.1-1.0 MG/DL Aspartate Amino Transf (AST/SGOT) 24 5-34 U/L Alanine Aminotransferase (ALT/SGPT) 25 0-55 U/L Alkaline Phosphatase 132 40-136 U/L Total Protein 5.9 L 6.4-8.2 GM/DL Albumin 3.1 L 3.2-4.5 GM/DL My Orders Orders - HEMANT KHOURY APRN Ua Culture If Indicated (02/01/23 15:41) Cbc And Automated Diff (02/01/23 15:56) Comprehensive Metabolic Panel (02/01/23 15:56) Ed Iv/Invasive Line Start (02/01/23 15:56) Urine Culture (02/01/23 16:10) Vital Signs/I&O 02/01/23 02/01/23 15:26 17:51 Temp 36.7 Pulse 94 88 Resp 20 20 B/P (MAP) 137/71 (93) 136/77 Pulse Ox 98 99 O2 Delivery Room Air Room Air Blood Pressure Mean: 93 Progress Progress Note : Progress Note Patient seen and evaluated, resting in bed, no acute distress. Based on exam and symptoms, I am concerned for a hematoma or a seroma. Work-up initiated incl uding CBC and CMP. Chart review revealed previous admission for complication. She was found to have a likely postoperative hematoma. She was treated with oral antibiotics and then returned 2 days later. When she returned she had a hemoglobin of 6. She was admitted and given 2 units of packed red blood cells. She likely had a ovarian vein thrombosis, and that the anemia was likely dilutional due to fluid retention and mobilization. She was given IV antibiotics and started on subcutaneous Lovenox. 1658 labs reviewed. CBC shows hemoglobin 10.7, this is up from 9.2. CMP shows slightly elevated chloride 110. Slightly elevated corrected calcium 10.2. Total protein slightly low at 5.9, BUN slightly low at 3.1. Urinalysis shows 3+ RBCs, 5-10 WBCs, 2-5 squamous epithelial cells, trace bacteria. I am not concerned for urinary tract infection. Called and spoke with Dr. Devries, DEHYDRATION UNIT OPERATOR on-call. She is going to come and see patient. 1739 Dr. Devries, DEHYDRATION UNIT OPERATOR, evaluated patient. She is not concerned for a hematoma at this time. She does not think patient needs antibiotics or to be admitted. Plan of care discussed with patient. Patient is stable for discharge. Discharge instructions and return precautions provided. Departure Impression Primary Impression: section wound complications Disposition: HOME, SELF-CARE Condition: Stable Departure-Patient Inst. Decision time for Depature: 17:39 Referrals: ROBERT RANDOLPH DO (PCP/Family) Primary Care Physician Patient Instructions: Surgical Wound (DC) Add. Discharge Instructions: Make sure you are taking it easy. No lifting greater than 10 pounds. At this time you do not need antibiotics. Your hemoglobin has improved. The swelling and bruising is likely related to the instruments used during the . Call Dr. Randolph on Friday. Please return if you are getting worse not better, you develop redness around the incision, or worsening swelling, fever, or any other new, concerning, or worsening symptoms. Copy Copies To 1: ROBERT RANDOLPH BRITTANY R APRN Feb 01, 2023 16:09
[2023-02-01 16:20] LABS: CLARITY,URINE CLEAR; COLOR,URINE YELLOW
[2023-02-01 16:21] LABS: BILIRUBIN,URINE NEGATIVE (NEGATIVE); GLUCOSE, URINE (UA) NEGATIVE (NEGATIVE); KETONES,URINE NEGATIVE (NEGATIVE); LEUKOCYTE ESTERASE ,URINE NEGATIVE (NEGATIVE); NITRITE,URINE NEGATIVE (NEGATIVE); PROTEIN,URINE NEGATIVE (NEGATIVE)
[2023-02-01 16:21] LABS: BASOPHILS % (AUTO) 0 % (0-10); EOSINOPHILS # (AUTO) 0.3 10^3/uL (0.0-0.3); EOSINOPHILS % (AUTO) 3 % (0-10); HEMATOCRIT 32 % (35-52); HEMOGLOBIN 10.7 g/dL (11.5-16.0); LYMPHOCYTES # (AUTO) 1.5 10^3/uL (1.0-4.0); LYMPHOCYTES % (AUTO) 16 % (12-44); MEAN CORPUSCULAR HEMOGLOBIN 34 pg (25-34); MEAN CORPUSCULAR HGB CONC 33 g/dL (32-36); MEAN CORPUSCULAR VOLUME 102 fL (80-99); MEAN PLATELET VOLUME 11.2 fL (9.0-12.2); MONOCYTES # (AUTO) 0.5 10^3/uL (0.0-1.0); MONOCYTES % (AUTO) 5 % (0-12); NEUTROPHILS # (AUTO) 7.1 10^3/uL (1.8-7.8); NEUTROPHILS % (AUTO) 75 % (42-75); PLATELET COUNT 193 10^3/uL (130-400); WHITE BLOOD COUNT 9.5 10^3/uL (4.3-11.0)
[2023-02-01 16:24] LABS: BACTERIA,URINE TRACE /HPF
[2023-02-01 16:30] LABS: ALBUMIN 3.1 GM/DL (3.2-4.5)
[2023-02-01 16:31] LABS: CALCIUM 9.5 MG/DL (8.5-10.1)
[2023-02-01 16:32] LABS: TOTAL PROTEIN 5.9 GM/DL (6.4-8.2)
[2023-02-01 16:34] LABS: BILIRUBIN,TOTAL 0.5 MG/DL (0.1-1.0)
[2023-02-01 16:36] LABS: CREATININE SERUM 0.64 MG/DL (0.60-1.30)
--- NOTE | 2023-02-01 17:31 | Consultation ---
History of Present Illness History of Present Illness Patient Consulted On(khadar/time) 02/01/23 17:26 Time Seen by Provider: 17:30 History of Present Illness 27 year old POD #3 presents with increased bruising and swelling to labia and incision. She is having some drainage from incision as well. She has a history of a hematoma between the bladder and uterus requiring blood transfusions and readmission in 2017. She denies fever/chills. She is having minimal vaginal bleeding. This is her fourth Allergies and Home Medications Allergies Coded Allergies: ceftriaxone (Verified Allergy, Mild, RASH, 08/03/21) tramadol (Unverified Allergy, Unknown, 08/03/21) Uncoded Allergies: IV contrast (Allergy, Unknown, 08/03/21) Patient Home Medication List Home Medication List Reviewed: Yes Acetaminophen (Tylenol Extra Strength) 500 Mg Tablet, 1,000 MG PO PRN, (Reported) Entered as Reported by: ABDIRAHMAN BLEVINS on 01/12/23 0414 Docusate Sodium (Docusate Sodium) 100 Mg Capsule, 100 MG PO BID PRN for CONSTIPATION-1ST LINE Prescribed by: ROBERT VALDEZ on 01/29/23 0725 Hydrocodone/Acetaminophen (Hydrocodone-Acetamin 5-325 mg) 5 Mg-325 Mg Tablet, 1- 2 EA PO Q6HR PRN for PAIN-MODERATE (5-7) Prescribed by: ROBERT VALDEZ on 01/29/23 0726 Ibuprofen (Ibu) 600 Mg Tablet, 600 MG PO Q6H Prescribed by: ROBERT VALDEZ on 01/29/23 0725 Loratadine (Claritin) 5 Mg Tab.rapdis, 5 MG PO HS, (Reported) Entered as Reported by: ALAINA WILBURN on 01/07/23 1122 Vit W-Ca,Fe,FA(<1 mg) ( Vitamins) 1 Each Tablet, 1 EACH PO DAILY, (Reported) Entered as Reported by: MILES SPANGLER on 11/18/20 4930 Past Iobeocn-Eyymms-Viuftt Hx Patient Social History Tobacco Use?: No Use of E-Cig and/or Vaping dev: No Substance use?: No Alcohol Use?: No Pt feels they are or have been: No Immunizations Up To Date Tetanus Booster (TDap): Unknown PED Vaccines UTD: Yes First/Initial COVID19 Vaccinat: na Second COVID19 Vaccination Khadar: na Third COVID19 Vaccination Date: na Seasonal Allergies Seasonal Allergies: Yes Past Medical History Surgery/Hospitalization HX: WISDOM TEETH REMOVED X 4 D&C X 2 BIRTHMARK/SKIN LESION REMOVED FROM RIGHT LOWER LEG Surgeries: Yes (surgery on RIGHT LOWERleg for lesion removal; DENTAL; D&C X2; X 3) Section Respiratory: No Deep Vein Thrombosis, Heart Murmur Neurological: No : No Reproductive Disorders: Yes Female Reproductive Disorders: Menstrual Problems, Ovarian Cyst HIV/AIDS: No Genitourinary: Yes (PELVIC CONGESTION SYNDROME) Gastrointestinal: No Musculoskeletal: No Endocrine: No HEENT: No Cancer: No Psychosocial: Yes (OVERDOSED 2018. SUICIDAL IDEATIONS. ) Anxiety, Suicide Attempts, Depression Integumentary: No Blood Disorders: Yes (DVT, anemia after last delivery) Adverse Reaction/Blood Tranf: No Family Medical History Patient reports no known family medical history. No Pertinent Family Hx Review of Systems-General Constitutional: No chills, No fever Respiratory: No cough Cardiovascular: No chest pain, No edema : No Physical Exam-General Problems Physical Exam Vital Signs Vital Signs - First Documented 02/01/23 15:26 Temp 36.7 Pulse 94 Resp 20 B/P (MAP) 137/71 (93) Pulse Ox 98 O2 Delivery Room Air Capillary Refill : Less Than 3 Seconds General Appearance: no apparent distress Respiratory: no respiratory distress Cardiovascular: no edema Gastrointestinal: non tender, soft, other (incision -no erythema or drainage noted) Genital/Rectal: other (bruising noted on labia majora right>left) Assessment/Plan Assessment/Plan Admission Diagnosis/Plan POD #3 Swelling of labia/incision drainage- increase rest/lifting precautions follow up at scheduled appointment Hgb stable no concerns for hematoma at this time MALIK LEMUS DO Feb 01, 2023 17:31
[2023-02-01 17:51] VITALS: BP 136/77
== END 2023-02-01 17:51 | disposition home or self-care (01) ==
LOC: EDUNIT# 15:17 → ER 15:20
DX: O90.89 Other complications of the puerperium, not elsewhere classified (principal); O99.893 Other specified diseases and conditions complicating puerperium; S30.23XA Contusion of vagina and vulva, initial encounter; X58.XXXA Exposure to other specified factors, initial encounter
CPT/HCPCS: 36415; 80053; 81000; 85025; 87088

== ENCOUNTER → 2023-02-27 | Outpatient (CLI) | payer MEDICAID ==
--- NOTE | 2023-02-27 09:46 | Diagnostic Imaging Report ---
PROCEDURE: CT pelvis without contrast. DATE: February 27, 2023. INDICATION: 27-year-old female, evaluation for postprocedural seroma following surgery. Pelvic pain. COMPARISON: CT abdomen/pelvis April 03, 2020. FINDINGS: There is inflammatory stranding in the anterior subcutaneous tissues at the level of the pelvis as well as just deep to the anterior abdominal wall musculature. There is masslike enlargement along the posterior margins of the bilateral rectus abdominis muscles measuring roughly 3.9 x 2.1 x 3.8 cm in size on the right and on the left measuring approximately 3.2 x 1.6 x 3.4 cm. On the left, there is a central more hypodense component. These areas of masslike prominence extend towards the anterior margin of the uterus. There is no sizable volume free fluid in the pelvis. There is no identified free intraperitoneal air within the included [id number]. The imaged portions of the intestinal tract are not distended. The appendix is unremarkable. There is no identified lymph node in the pelvis which meets CT size criteria for adenopathy. There is transitional lumbosacral anatomy. There is no identified acute bony abnormality. IMPRESSION: 1. Masslike enlargement along the posterior margins of the right and left rectus abdominis muscles with measurements as above. This could relate to intramuscular hematomas or other nonspecific intramuscular fluid collections. 2. Stranding within the anterior subcutaneous tissues of the pelvis and just deep to the abdominal wall musculature without additional drainable fluid collection. 3. No sizable volume free fluid in the pelvis. Dictated by: Dictated on workstation # [id number]
== END ==
LOC: RAD 08:01
PROVIDERS: ATTEND Family Medicine
DX: O90.0 Disruption of cesarean delivery wound (principal); O34.211 Maternal care for low transverse scar from previous cesarean delivery; N99.842 Postprocedural seroma of a genitourinary system organ or structure following a genitourinary system procedure
CPT/HCPCS: 72192

== ENCOUNTER → 2023-03-05 | Outpatient (CLI) | payer MEDICAID | LOC: WOUNDCARE 08:47 | PROVIDERS: ATTEND Family Medicine | DX: O90.0 Disruption of cesarean delivery wound (principal); O34.211 Maternal care for low transverse scar from previous cesarean delivery; N99.842 Postprocedural seroma of a genitourinary system organ or structure following a genitourinary system procedure; A49.8 Other bacterial infections of unspecified site; Z3A.00 Weeks of gestation of pregnancy not specified | CPT/HCPCS: 17250; A6212; G0463 ==